=== PATIENT | male | born 1940 | race Caucasian/White ===

== ENCOUNTER → 2016-09-18 | Outpatient (CLI) | payer MEDICARE, OTHER ==
--- NOTE | 2016-09-18 18:13 | RADRPT ---
PROCEDURE: CT Chest. CLINICAL INDICATION: Dyspnea and shortness of breath. TECHNIQUE: CT scan of the chest without contrast was performed on the [employer] volumetric [address] [facility] without contrast. Coronal and sagittal reformatted images were obtained from the axial source images. The CTDI vol is 12.31 mGy and the DLP is 497.54 mGy-cm. COMPARISON: None. FINDINGS: A mild to moderate size right pleural effusion is seen with a small left pleural effusion. Scattere d ground-glass opacities are seen. The mediastinum and hilum are unremarkable without evidence for mass or lymphadenopathy. Aortic and coronary vascular calcifications are seen. The vascular structu res of the mediastinum are otherwise unremarkable in course and caliber. The heart size is mildly e nlarged and is without evidence for pericardial thickening or effusion. The axillary regions, subpe ctoral regions, and supraclavicular regions are all unremarkable. Bilateral -10 renal calculi are se en. In addition, a calculus in the left renal pelvis is seen measuring 9 mm in size. A right renal cyst is seen. Imaging obtained through the upper abdomen reveals no acute abnormality. Diffuse ost eopenia is seen. Degenerative spondylosis of the thoracic spine is seen. No osteolytic or osteoblas tic lesion is detected. The thyroid is enlarged and heterogeneous. IMPRESSION: 1. Mild to moderate size right pleural effusion with a small left pleural effusion. 2. Scattered ground-glass opacities which may be infectious or inflammatory in nature. 3. Bilateral nonobstructing renal calculi as well as a left renal pelvis calculus. RPTAT: HPNM Physician Gagandeep Date Time Electronically viewed and signed by Physician Gagandeep on 09/18/2016 18:13 /
== END | disposition home or self-care (01) ==
LOC: C/S 16:21
PROVIDERS: ATTEND Internal Medicine
DX: R06.00 Dyspnea, unspecified (principal); R06.02 Shortness of breath; J90 Pleural effusion, not elsewhere classified; N20.0 Calculus of kidney
CPT/HCPCS: 71250

== ENCOUNTER 2016-10-19 07:48 | Inpatient (IN) | payer MEDICARE, OTHER ==
[~2016-10-19] VITALS: Ht 165.1 cm; Wt 83.0 kg
[2016-10-19 08:33] LABS: ADD SCAN DIFF NO
[2016-10-19 08:45] LABS: BASOPHILS % 0.1 % (0.0-2.0); EOSINOPHILS # 0.1 10^3/ul (0.0-0.5); EOSINOPHILS % 0.7 % (0.0-7.0); HEMATOCRIT 25.5 % (42.0-52.0); HEMOGLOBIN 8.2 g/dl (14.0-18.0); LYMPHOCYTES # 0.9 10^3/ul (0.8-2.9); LYMPHOCYTES % 11.4 % (15.0-51.0); MEAN CORPUSCULAR HEMOGLOBIN 35.3 pg (29.0-33.0); MEAN CORPUSCULAR HGB CONC 32.2 g/dl (32.0-37.0); MEAN CORPUSCULAR VOLUME 109.9 fl (82.0-101.0); MEAN PLATELET VOLUME 10.5 fl (7.4-10.4); MONOCYTE # 0.9 10^3/ul (0.3-0.9); MONOCYTES % 11.5 % (0.0-11.0); NEUTROPHIL # 6.2 10^3/ul (1.6-7.5); NEUTROPHILS % 75.9 % (39.0-77.0); PLATELET COUNT 188 10^3/UL (140-415); RED BLOOD COUNT 2.32 10^6/ul (4.70-6.10); RED CELL DISTRIBUTION WIDTH 17.5 % (11.5-14.5); WHITE BLOOD COUNT 8.1 10^3/ul (4.8-10.8)
--- NOTE | 2016-10-19 08:46 | RADRPT ---
PROCEDURE: XR Chest. CLINICAL INDICATION: Shortness of breath. TECHNIQUE: Single frontal view. COMPARISON: None. FINDINGS: There is mild atelectasis at the lung bases. The heart size is normal. There is calcification in the aorta consistent with atherosclerosis. There is a small right pleural effusion. There is no left pleural effusion. There is no pneumothorax. IMPRESSION: 1. Mild atelectasis at the lung bases. 2. Atherosclerosis. 3. Small right pleural effusion. RPTAT: QQ .Moses Monk MD, MD Date Time Electronically viewed and signed by .Moses Monk MD, MD on 10/19/2016 08:46 .R/
[2016-10-19 08:53] LABS: INR 1.73; PROTIME 20.4 Sec (12.2-14.2); PT RATIO 1.6
[2016-10-19 08:56] LABS: ALANINE AMINOTRANSFERASE 51 IU/L (13-69); ALBUMIN 3.8 g/dl (3.3-4.9); ALKALINE PHOSPHATASE 141 IU/L (42-121); ANION GAP 21 (8-16); ASPARTATE AMINO TRANSFERASE 73 IU/L (15-46); BILIRUBIN,INDIRECT 0.5 mg/dl (0-1.1); BILIRUBIN,TOTAL 0.5 mg/dl (0.2-1.3); BLOOD UREA NITROGEN 57 mg/dl (7-20); CALCIUM 9.1 mg/dl (8.4-10.2); CARBON DIOXIDE 21 mmol/L (21-31); CHLORIDE 104 mmol/L (97-110); CREATININE 3.64 mg/dl (0.61-1.24); GLUCOSE 150 mg/dl (70-220); SODIUM 141 mmol/L (135-144); TOTAL PROTEIN 6.5 g/dl (6.1-8.1)
[2016-10-19 09:06] LABS: B-TYPE NATRIURETIC PEPTIDE 5800 PG/ML (0-125)
[2016-10-19 09:27] LABS: TROPONIN-I < 0.012 ng/ml (0.00-0.12)
[2016-10-19] MEDS ORDERED: PIPER-TAZO 3.375 GM IV (PMX) 100 ML IVPB STA (10:37)
[2016-10-19] MEDS ORDERED: VANCOMYCIN 1 GM (PMX) 250 ML IVPB STA (10:37)
--- NOTE | 2016-10-19 10:37 | RADRPT ---
PROCEDURE: CT scan of the abdomen and pelvis without IV contrast. CLINICAL INDICATION: 76-year-old male with bilateral history of renal stones. TECHNIQUE: Thin section axial, coronal and sagittal images were performed through the abdomen and pelvis without contrast. Radiation Dose: CTDI: 14 and DLP: 801 One or more of the following dose reduction techniques were used: - Automated exposure control. - Adjustment of the mA and/or kV according to patient size. Use of iterative reconstruction technique. COMPARISON: Chest x-ray 05/09/2016 06:18 a.m. FINDINGS: Soft tissues: There is anasarca. There is diastasis rectus. There are bilateral inguinal hernias wh ich contain fat but no intra-abdominal. Lungs and pleural spaces: There are bilateral pleural effusions. The right is larger than the left. There is peribronchial cuffing in the bronchial os leading to the right left lower lobes with bila teral ground-glass infiltrates suspicious for compressive atelectasis in the right left lower lobes. Heart: Heart is enlarged. There is a small pericardial effusion. There are vascular calcifications in the coronary arteries. The liver, common bile duct and gallbladder: The liver measured 12.6 cm AP. No hepatic mass or intr ahepatic biliary ductal dilatation is identified. A 6 mm hepatic mass is identified to small to quinn acterize. Ultrasound is recommended for evaluation. The gallbladder and gallbladder wall are colette l. Gastrointestinal: The stomach is incompletely distended and this is thought to account for gastric w all thickening. The small bowel loops have a normal caliber. There are diverticula in the sigmoid colon. There are diverticula in the splenic flexure. There are no signs of appendicitis. Pancreas: There is fatty replacement of the pancreas which is otherwise normal. Kidneys, bladder and adrenal glands : 85 0.5 mm nonobstructive nephrolith is noted in the upper midd le third of the right kidney. There is an area of increased attenuation parallel to the capsule of t he dorsal surface of the right kidney. Hounsfield view than spacer 65. The lower portion of the le eli as a rounded configuration whereas the more superior portions of a concave configuration. A 1.4 cm subcapsular cyst is noted off the lower pole of the left kidney. A 2.2 mm nephrolith and a djacent 5.3 mm nonobstructive nephrolith is identified in the lower pole calyces of the right kidney . There is a 10 mm nonobstructive nephrolith in the upper portion of the lower third of the left ki dney. There is a 1 mm nonobstructive nephrolith in the mid pole of the right kidney. There is a 1. 7 cm subcapsular lesion which may be the result of a complex cyst/mass or simple cyst in the midpole of the left kidney. There is a 1.2 cm lesion suspicious for a cyst in the upper lateral third of th e left kidney. The urinary bladder is unremarkable with no bladder stone identified. There are phleboliths in the lower pelvis. Spleen: Normal. There is a 1.5 cm accessory splenule. Lymph nodes: Normal. Reproductive system and pelvis : The prostate gland and seminal vesicles are normal. Bony elements: A Schmorl's node impinges on the inferior endplate of L4. There is disk space narrow ing associated with grade 1 anterolisthesis of L4-L5. There are bilateral fractures of the L4 pars interarticularis. There is disk space narrowing with grade 1 anterolisthesis of L2 relative to L1. There is disk space narrowing and vacuum disk phenomenon at L2-3 with a Schmorl's node impinging on the inferior endplate of L2. There is dorsal disk space narrowing at L3-4 with a small Schmorl's n ode impinging on the superior plate of L3. There are degenerative osteophytes in the lower thoracic spine. There are degenerative changes in the articular facets from L1-2 to L5-S1. There are multi ple old left-sided rib fractures. Vasculature: There are vascular calcifications in the thoracic and abdominal aorta, distal common il iac arteries, internal iliac arteries and common femoral arteries. IMPRESSION: 1. Acute subcapsular hematoma along the dorsal aspect of the right kidney. Ultrasound may be helpful in further characterization. 2. Nonobstructive nephrolith so in the right and left kidneys as described. 3. No evidence of hydronephrosis. 4. Small left kidney containing multiple cysts as described. Ultrasound is recommended for further characterization of these lesions as some are potentially complex. 4. Bilateral pleural effusions with compressive atelectasis in the bases of the lungs. 5. Cardiomegaly with a small pericardial effusion and vascular calcifications in the coronary arter ies. 6. Accessory splenule. 7. Anasarca. 8. Diastasis rectus. 9. Bilateral inguinal hernias containing fat. 10. Diverticulosis of the sigmoid colon without evidence of diverticulitis or appendicitis. 11. Extensive degenerative changes in the lumbar spine with grade 1 anterolisthesis of L4 and L5 as sociated with bilateral fractures of the L4 pars interarticularis. Other findings in the spine as d escribed. 12. Atherosclerotic vascular disease. 13. Findings were discussed with Dr. Monk. RPTAT:AAJJ Physician Rey Date Time Electronically viewed and signed by Daniel Wheatley Physician on 10/19/2016 10:36 /
--- NOTE | 2016-10-19 10:53 | ERA ---
ER Documentation Chief Complaint Date/Time DATE: 10/19/16 TIME: 10:48 Chief Complaint SENT IN BY PRIMARY MD FOR FURTHER LAB WORK AND ADMISSION HPI This is a 76-year-old male with a history of arthritis who presents to the emergency room after being sent in by his primary care physician, Dr. Francois, for evaluation of increased creatinine. According to this patient's primary care physician's patient normally has a creatinine of 1.8, he has been complaining of bilateral lower extremity swelling, and most recent blood work done at outside facility shows a creatinine of 3. This patient is denying any active shortness of breath at this time but does state that he is noticed bilateral lower extremity swelling. He states that he has ulcers on his legs from the swelling and he has been wrapping them with gauze. ROS All systems reviewed and are negative except as per history of present illness. Allergies Allergies: Coded Allergies: No Known Allergy (Unverified , 10/19/16) PMhx/Soc History of Surgery: No Anesthesia Reaction: No Hx Neurological Disorder: No Hx Cardiac Disorders: Yes (HTN AFIB) Hx Psychiatric Problems: No Hx Miscellaneous Medical Probl: Yes (DM, CHRONIC LEG WOUNDS, CIRCULATION ISSUES ) Hx Alcohol Use: No Hx Substance Use: No Hx Tobacco Use: No Smoking Status: Never smoker Physical Exam Vitals Vital Signs Date Time Temp Pulse Resp B/P Pulse Ox O2 Delivery O2 Flow Rate FiO2 10/19/16 09:30 98.3 74 20 101/62 98 Room Air 10/19/16 08:30 98.3 72 20 111/70 98 Room Air 10/19/16 07:55 99.4 86 18 126/58 100 Physical Exam INITIAL VITAL SIGNS: Reviewed by me GENERAL: The patient is a very pleasant elderly gentleman in no acute distress HEENT: Pupils equal, round, and reactive to light. EOMI. There is no scleral icterus. NECK: C-spine is soft and supple, there is no meningismus. There is no cervical lymphadenopathy. LUNGS: Coarse breath sounds bilaterally HEART: Regular rate and rhythm, no murmurs, clicks, rubs or gallops. ABDOMEN: Soft, non-tender, non-distended. There are bowel sounds in all four quadrants. No rebound or guarding. EXTREMITIES: 2+ pitting edema in the bilateral lower external. NEUROLOGICAL: The patient moves all four extremities with 5/5 strength. Cranial nerves II - XII are intact. Normal gait. Alert and oriented SKIN: Bilateral lower extremity weeping ulcers, HEME/LYMPHATIC: There is no evidence of excessive bruising or lymphedema. PSYCHIATRIC: The patient does not appear anxious or depressed. Result Diagram: 10/19/16 0820 10/19/16 0820 Results 24 hrs Laboratory Tests Test 10/19/16 08:20 White Blood Count 8.110^3/ul Red Blood Count 2.3210^6/ul Hemoglobin 8.2g/dl Hematocrit 25.5% Mean Corpuscular Volume 109.9fl Mean Corpuscular Hemoglobin 35.3pg Mean Corpuscular Hemoglobin Concent 32.2g/dl Red Cell Distribution Width 17.5% Platelet Count 39747^3/UL Mean Platelet Volume 10.5fl Neutrophils % 75.9% Lymphocytes % 11.4% Monocytes % 11.5% Eosinophils % 0.7% Basophils % 0.1% Nucleated Red Blood Cells % 0.0/100WBC Neutrophils # 6.210^3/ul Lymphocytes # 0.910^3/ul Monocytes # 0.910^3/ul Eosinophils # 0.110^3/ul Basophils # 0.010^3/ul Nucleated Red Blood Cells # 0.010^3/ul Prothrombin Time 20.4Sec Prothrombin Time Ratio 1.6 INR International Normalized Ratio 1.73 Activated Partial Thromboplast Time 46.0Sec Sodium Level 141mmol/L Potassium Level 5.0mmol/L Chloride Level 104mmol/L Carbon Dioxide Level 21mmol/L Anion Gap 21 Blood Urea Nitrogen 57mg/dl Creatinine 3.64mg/dl Glucose Level 150mg/dl Calcium Level 9.1mg/dl Total Bilirubin 0.5mg/dl Direct Bilirubin 0.00mg/dl Indirect Bilirubin 0.5mg/dl Aspartate Amino Transf (AST/SGOT) 73IU/L Alanine Aminotransferase (ALT/SGPT) 51IU/L Alkaline Phosphatase 141IU/L Troponin I < 0.012ng/ml B-Type Natriuretic Peptide 5800PG/ML Total Protein 6.5g/dl Albumin 3.8g/dl Globulin 2.70g/dl Albumin/Globulin Ratio 1.40 Lipase 142U/L Current Medications Medications (Trade) Dose Ordered Sig/Dano Route PRN Reason Start Time Stop Time Status Last Admin Dose Admin Vancomycin HCl 250 ml @ 125 mls/hr ONCE STAT IVPB 10/19/16 10:37 10/19/16 12:36 Piperacillin Sod/ Tazobactam Sod (Zosyn 3.375gm/ 100 ml (Pmx)) 100 ml @ 100 mls/hr ONCE STAT IVPB 10/19/16 10:37 10/19/16 11:36 Ondansetron HCl (Zofran Inj) 4 mg BRIDGE ORDER PRN IV NAUSEA AND/OR VOMITING 10/19/16 11:00 10/20/16 10:59 Acetaminophen (Tylenol Tab) 650 mg ER BRIDGE PRN PO MILD PAIN/FEVER 10/19/16 11:00 10/20/16 10:59 Procedures/MDM EKG: Rate/Rhythm: [Normal Sinus Rhythm] QRS, ST, T-waves: [No changes consistent w/ acute ischemia] Impression: [No evidence of ischemia or arrhythmia] Chest X-ray 1V Interpreted by me: Soft Tissue: No acute abnormalities Bones: No acute abnormalities Mediastinum/Cardiac Silhouette/Lungs: Pleural effusion CT abdomen pelvis without: 1. Acute subcapsular hematoma along the dorsal aspect of the right kidney. Ultrasound may be helpful in further characterization. 2. Nonobstructive nephrolith so in the right and left kidneys as described. 3. No evidence of hydronephrosis. 4. Small left kidney containing multiple cysts as described. Ultrasound is recommended for further characterization of these lesions as some are potentially complex. 4. Bilateral pleural effusions with compressive atelectasis in the bases of the lungs. 5. Cardiomegaly with a small pericardial effusion and vascular calcifications in the coronary arteries. 6. Accessory splenule. 7. Anasarca. 8. Diastasis rectus. 9. Bilateral inguinal hernias containing fat. 10. Diverticulosis of the sigmoid colon without evidence of diverticulitis or appendicitis. 11. Extensive degenerative changes in the lumbar spine with grade 1 anterolisthesis of L4 and L5 associated with bilateral fractures of the L4 pars interarticularis. Other findings in the spine as described. 12. Atherosclerotic vascular disease. This 76-year-old male presents to the emergency room for evaluation of bilateral lower extremity swelling. His primary care physician, Dr. Francois, stated that this patient has an increase in his creatinine. When I evaluated this patient I did note a weeping ulcers of the bilateral lower extremity with superficial superior pole cellulitis. The patient did have a creatinine greater than 3. CT of the abdomen and pelvis does show subcapsular hemorrhage of the kidney. The patient is hemodynamically stable at this time. Given his cellulitis he was started on vancomycin and Zosyn. The patient will be admitted at this time under the care of Dr. partida with nephrology consult. Patient is hemodynamically stable and not hypoxic. He will be placed on the [facility] floor at this time. Departure Diagnosis: Primary Impression: Acute renal failure Additional Impressions: Peripheral edema Renal hematoma Macrocytic anemia Bilateral lower leg cellulitis Condition: Fair YARIEL WALSH DO Oct 19, 2016 10:53
[2016-10-19] MEDS ORDERED: ONDANSETRON 4 MG INJ IV PRN (11:00)
[2016-10-19] MEDS ORDERED: DOCUSATE SODIUM 100 MG CAP PO PRN (11:00)
[2016-10-19] MEDS: FAMOTIDINE 20 MG TAB PO SCH (11:00)
[2016-10-19] MEDS ORDERED: NACL 0.9% 3 ML SYG IV SCH (11:00)
[2016-10-19] MEDS ORDERED: ACETAMINOPHEN 325 MG TAB PO PRN (11:00)
[2016-10-19 11:44] LABS: ADD UMIC YES; UR AMORPHOUS CRYSTAL FEW /HPF (NONE SEEN); UR ASCORBIC ACID NEGATIVE (NEGATIVE); UR BILIRUBIN (Dip) NEGATIVE (NEGATIVE); UR BLOOD (Dip) 2+ mg/dL (NEGATIVE); UR CLARITY CLOUDY (CLEAR); UR COLOR YELLOW (YELLOW); UR GLUCOSE (Dip) NEGATIVE (NEGATIVE); UR KETONES (Dip) NEGATIVE (NEGATIVE); UR LEUKOCYTE ESTERASE (Dip) NEGATIVE Leu/ul (NEGATIVE); UR NITRITE (Dip) NEGATIVE (NEGATIVE); UR RBC 25 /HPF (0-5); UR SPECIFIC GRAVITY (Dip) 1.013 (1.003-1.030); UR TOTAL PROTEIN (Dip) NEGATIVE (NEGATIVE); UR UROBILINOGEN (Dip) NEGATIVE (NEGATIVE)
--- NOTE | 2016-10-19 11:49 | RADRPT ---
PROCEDURE: Renal US. CLINICAL INDICATION: Subcapsular hematoma and renal cysts. TECHNIQUE: Multiple sonographic images of the kidneys were obtained. The images were reviewed on a PACS workstation. COMPARISON: 10/19/2016 CT abdomen. FINDINGS: The kidneys are well visualized. Hypoechoic subcapsular fluid collection along the peripheral aspect of the right kidney compatible with subcapsular hematoma measuring approximately 4 cm in greatest t hickness and 6 cm in craniocaudal extent. Multiple nonobstructing nephrolithiasis. Several sub-mirella timeter renal cortical renal cysts . The right kidney measures 11.1 x 5.9 x 4.1 cm in size. The lef t kidney measures 9.5 x 4.9 x 4.9 cm in size. Multiple nonobstructing punctate nephrolithiasis. 1. 6 cm left mid pole renal cortical cyst. There are no focal areas of abnormal echogenicity. There is no evidence for obstructive uropathy. Daniels catheter within decompressed bladder. IMPRESSION: Hypoechoic subcapsular right renal fluid collection peripherally compatible with subcapsular hematom a. This measures 4 cm in greatest thickness and 6 cm and craniocaudal extent. Multiple nonobstructing nephrolithiasis without hydronephrosis or obstructive uropathy. Bilateral renal cortical cysts. Daniels catheter within decompressed bladder. RPTAT:AAJJ Physician Eleuterio Date Time Electronically viewed and signed by Physician Eleuterio on 10/19/2016 11:48 KIP/
--- NOTE | 2016-10-19 14:06 | CONS ---
Date/Time of Note Date/Time of Note DATE: 10/19/16 TIME: 13:50 Assessment/Plan Assessment/Plan Additional Assessment/Plan 76 m with MMP as above,he presents with acute, non proteinuric, non oliguric renal failure on ckd . w/u revels hematuria and a moderate/ large rt subcapsular hematoma 4x6 cms noted on ct and ultrasound. other pertinent issues include acute anemia, borderline bp and use of arbs and the presence of cellulitis on exam. dd for his arf on ckd includes arf related to new subcapsular hematoma ( variant of Page kidney) causing sudden reduction in renal blood flow. this is likely given h/o of ECSWL 09/24 and a lab showing cr 4.5 10/08 which implies improving renal function with the resolution of his hematoma, vs atn related to hypotension, decreased renal blood flow dut to acute blood loss while on arb vs ICGN related to ongoing infection ( saad odonnell) recommendations: * dc arb ( arb) and metformin * gentle hydration * stat gu eval * repeat renal ultrasound and labs in am. if hematoma not improving and cr not better will need hematoma drainage * hold eliquis * check iron sats and ferritin and start ferrlicit if iron deficient * cont abx * renal dose all meds * add cpk, uric acid level and quantify proteinuria * c3/c4 for eval of icgn * add spep / upep to complate w/u Consultation Date/Type/Reason Admit Date/Time Reason for Consultation evaluation of arf Hx of Present Illness 76 m with h/o htn/ hyperlipidemia/niddm and ckd 3 with baseline cr 1.8 and chronic le edema due to "circulation problems " suspect chronic venous stasis who was sent to the er because of recent and sudden rise in cr to 3.6. the patient has had multiple renal stones and has been under the care of an outside urologist. he had an ECSWL in 08/2016 and again on 09/23/2016. he has a baseline cr of 1.8 due to chronic htn nephrosclerosis and has been stable on arb for years. cr done between both procedures was 1.8 . the patient had a lab drawn by his urologist on 10/08 and was noted to be markedly elevated at 4.5 / he was asked to come back for repeat yesterday and his cr was 3.3 and hence the patient was asked to come to the hospital for eval. he feels ok other than increasing lw swelling and redness and states he has been wrapping his lags for the last 2 weeks but has not had any abx. he denies any recent nsaid use but does not have his complete med list with him. he reports no chnage in uo or quality of his urine Past Medical History Medical History: angina, coronary artery disease, diabetes, high cholesterol, hypertension, hypothyroid, renal disease, other (renal stones, atrial fib) Family History Significant Family History: no pertinent family hx Social History Alcohol Use: none Smoking Status: Never smoker Exam/Review of Systems Vital Signs Vitals Vital Signs Date Time Temp Pulse Resp B/P Pulse Ox O2 Delivery O2 Flow Rate FiO2 10/19/16 09:30 98.3 74 20 101/62 98 Room Air Exam Constitutional: alert, oriented Head: atraumatic, normocephalic Eyes: nl conjunctiva Neck: jvd, non-tender, supple Respiratory: diminished breath sounds Cardiovascular: edema (bilateral le 1-2+ edema/ erethyma and weapping ulcers rt >lt), nl pulses, regular rate and rhythm Gastrointestinal: non-tender, soft Results Result Diagram: 10/19/16 0820 10/19/16 0820 Results 24 hrs Laboratory Tests Test 10/19/16 08:20 10/19/16 10:55 10/19/16 11:00 10/19/16 11:50 White Blood Count 8.1 Red Blood Count 2.32 L Hemoglobin 8.2 L Hematocrit 25.5 L Mean Corpuscular Volume 109.9 H Mean Corpuscular Hemoglobin 35.3 H Mean Corpuscular Hemoglobin Concent 32.2 Red Cell Distribution Width 17.5 H Platelet Count 188 Mean Platelet Volume 10.5 H Neutrophils % 75.9 Lymphocytes % 11.4 L Monocytes % 11.5 H Eosinophils % 0.7 Basophils % 0.1 Nucleated Red Blood Cells % 0.0 Neutrophils # 6.2 Lymphocytes # 0.9 Monocytes # 0.9 Eosinophils # 0.1 Basophils # 0.0 Nucleated Red Blood Cells # 0.0 Prothrombin Time 20.4 H Prothrombin Time Ratio 1.6 INR International Normalized Ratio 1.73 Activated Partial Thromboplast Time 46.0 H Sodium Level 141 Potassium Level 5.0 Chloride Level 104 Carbon Dioxide Level 21 Anion Gap 21 H Blood Urea Nitrogen 57 H Creatinine 3.64 H Glucose Level 150 Calcium Level 9.1 Ionized Calcium (Measured) 1.2 Total Bilirubin 0.5 Direct Bilirubin 0.00 Indirect Bilirubin 0.5 Aspartate Amino Transf (AST/SGOT) 73 H Alanine Aminotransferase (ALT/SGPT) 51 Alkaline Phosphatase 141 H Troponin I < 0.012 B-Type Natriuretic Peptide 5800 H Total Protein 6.5 Albumin 3.8 Globulin 2.70 Albumin/Globulin Ratio 1.40 Lipase 142 Urine Color YELLOW Urine Clarity CLOUDY A Urine pH 5.0 Urine Specific [place] 1.013 Urine Ketones NEGATIVE Urine Nitrite NEGATIVE Urine Bilirubin NEGATIVE Urine Urobilinogen NEGATIVE Urine Leukocyte Esterase NEGATIVE Urine Microscopic RBC 25 H Urine Microscopic WBC 2 Urine Amorphous Crystals FEW A Urine Hemoglobin 2+ H Urine Random Creatinine 70.54 Urine Random Sodium 76 Urine Glucose NEGATIVE Urine Total Protein NEGATIVE Lactic Acid Level 1.5 Erythrocyte Sedimentation Rate 63 H Test 10/19/16 13:00 Lactic Acid Level 0.8 Medications Medications Current Medications Docusate Sodium (Colace) 100 mg Q12H PRN PO CONSTIPATION; Start 10/19/16 at 11: 00 Zolpidem Tartrate (Ambien) 5 mg QHS PRN PO SLEEP; Start 10/19/16 at 11:00 Famotidine (Pepcid) 20 mg DAILY PO Last administered on 10/19/16t 11:00; Admin Dose 20 MG; Start 10/19/16 at 11:00 Heparin Sodium (Porcine) (Heparin (5000 Units/0.5 ml)) 5,000 unit Q8 SC ; Start 10/19/16 at 14:00 home meds: valsartan 160 bid janumet allopurinol levothyroxine DANIEL OLSEN MD Oct 19, 2016 14:05
[2016-10-19] MEDS: SOD CHLORIDE 0.45% 1,000 ML IV SCH ×2 (14:22→20:09)
[2016-10-19] MEDS: HEPARIN 5,000 UNIT/0.5 ML VIAL SC SCH ×2 (14:29→22:05)
[2016-10-19 14:30] VITALS: TEMP 98.3
--- NOTE | 2016-10-19 14:31 | HP ---
Date/Time of Note Date/Time of Note DATE: 10/19/16 TIME: 13:49 Assessment/Plan VTE Prophylaxis VTE Prophylaxis Intervention: contraindicated Lines/Catheters Urinary Cath still in place: Yes Reason Cath still needed: other (indicate) (Acute kidney injury) Assessment/Plan Problems: (1) Diabetes mellitus type 2, noninsulin dependent Status: Chronic Comment: He has generally enjoyed very good control on simple regimen using sensitizing agents. Will need to adjust that while he is in the hospital to maintain control. (2) Chronic atrial fibrillation Status: Chronic Comment: For now he will be off of the anticoagulant therapy (3) Coronary artery disease Status: Chronic Comment: This issue has been fortunately quiescent for some time Qualifiers: Coronary Disease-Associated Artery/Lesion type: [place] artery [place] vs. transplanted heart: [place] heart Associated angina: without angina Qualified Code: I25.10 - Coronary artery disease involving [place] coronary artery of [place] heart without angina pectoris (4) Essential hypertension Status: Chronic Comment: For now we will have to hold his A2 receptor raj drug therapy (5) Hyperlipidemia Status: Chronic Comment: Continue with the statin therapy which is tolerated Qualifiers: Hyperlipidemia type: pure hypercholesterolemia Qualified Code: E78.00 - Pure hypercholesterolemia (6) Hyperuricemia Status: Chronic Comment: Continue with allopurinol at original dosing (7) Renal stones Status: Chronic Comment: I do not believe he has obstruction however urology will be consulted for this as well as the renal subcapsular hematoma (8) Chronic kidney disease, stage II (mild) Status: Chronic Comment: This is noted for historical information for the staff involved in his care (9) Acute kidney injury Status: Acute Comment: Full date is in the history of present illness (10) History of Graves' disease Status: Chronic Comment: Status post I-131 ablation with hypothyroidism and without advancement of orbitopathy (11) Hypothyroidism (acquired) Status: Chronic Comment: Continue standard replacement therapy (12) Venous insufficiency of left lower extremity Status: Chronic Comment: Cultures been done as it looks like he may have developed some infection secondarily. (13) Venous insufficiency of right leg Status: Chronic Comment: Cultures have been done as it looks like he may have secondary infection he will be on antibiotics (14) Renal hematoma Status: Acute Comment: Urology will see the patient in consultation. We may need interventional radiology in combination with urology to perform some type of relief procedure Qualifiers: Encounter type: initial encounter Laterality: unspecified laterality Qualified Code: S37.019A - Renal hematoma, unspecified laterality, initial encounter HPI/ROS Admit Date/Time Admit Date/Time October 19, 2016 Hx of Present Illness Nael 76-year-old right-handed single male with several medical problems. He is being brought in due to the onset of subacute renal insufficiency. Historically his serum creatinine has ranged between 1.3 and 1.7 dating back to 2011 and farther. He has several active medical problems including but not limited to coronary artery disease-chronic atrial fibrillation -; hypothyroidism after I-131 treatment of Graves' disease; diabetes mellitus type 2; hyperlipidemia; the above-mentioned chronic kidney disease stage II varicose veins; chronic venous insufficiency; hyperuricemia; recurrent renal stones with a negative parathyroid workup. He has been on chronic anticoagulant therapy using Eliquis 5 mg twice daily peer he had undergone on August 13, 2016 ESWL cystoscopy for a left renal stone and then subsequently had ESWL on the right on September 24, 2016. Please note there was a CT scan of the chest which included part of the kidneys performed September 18, 2016 and his BUN and creatinine at that time were 24 and 1.7 respectively. He was seen in consultation by Dr. Abraham and on October 08, 2016 had labs demonstrated a serum creatinine of 4.59 with a BUN of 59 and a hemoglobin of 8.5 which was a new drop. He was noting some increasing lower extremity edema. He had also had aggravation of his chronic lower extremity venous stasis changes and was being referred for wound care evaluation. He has not been on any antibiotics including not on any sulfa medicines the best of her knowledge she has not been exposed to any IV contrast. His renal function was rechecked to make sure this was not laboratory air and serum creatinine had decreased to 3.3 however due to this and due to the symptoms of his legs he was brought in for admission and evaluation. Please see the results of imaging studies. Please note he was seen in the emergency room [facility] for epistaxis on October 09, 2016 where he did have labs done but they did not comment on the renal function ROS Constitutional: no complaints (Denies fever chills or sweats) Eyes: no complaints ENT: no complaints Respiratory: no complaints (He has had a chronic cough which actually led to his transitioning his PARADISE inhibitor over to valsartan 10 without effect. Please see the results of the CT scan. Please note he had a negative QuantiFERON gold) Cardiovascular: no complaints (No chest pain no PND nor orthopnea no palpitations) Gastrointestinal: no complaints (Denies nausea vomiting or abdominal pain) Genitourinary: no complaints (Specifically denies hematuria) Musculoskeletal: back pain (Some back pain) Skin: other (Bilateral lower extremity issues with left lower extremity edema and redness) Neurologic: no complaints Endocrine: no complaints Lymphatic: no complaints Psychological: no complaints Immunologic: no complaints PMH/Family/Social Past Medical History Medications; 1)[id number] day; 2) levothyroxine 112 mcg/d; 3)janumet 50- 1000 bid' 4) eliquis 5 bid, 5) atorvastatin 80mg/d 6) asa 325/d 7) metoprolol S. 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; 2) bilateral renal stones; 3) chronic kidney disease stage II with serum creatinine ranging between 1.3 and 1.7; 4) chronic venous stasis changes of both lower extremities; 5) Graves' disease status post I-131 ablation with hypothyroidism; 6) hyperlipidemia 7) hyperuricemia with gout; 8) basal cell carcinoma squamous cell carcinoma skin resected; 9) colonic polyposis; 10) allergic rhinitis; 11) history of varicose veins Chronic anticoagulation Medical History: coronary artery disease, diabetes, high cholesterol, hypertension Past Surgical History Status post right inguinal hernia repair September 13, 2014; status post appendectomy ; status post tonsillectomy; status post removal of skin cancer; status post ESWL Family History Significant Family History: heart disease, diabetes, hypertension, other ( Positive for stroke positive for glaucoma negative for migraine negative for colon cancer negative prostate cancer negative for bleeding diathesis) Social History Born in [place] and raised to high a bachelor's degree without experience 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 Tetanus and pneumococcal vaccines administered February 14, 2007 Colonoscopy June 30, 2011 with one tubular adenoma Alcohol Use: none Smoking Status: Never smoker Drug Use: none Exam/Review of Systems Vital Signs Vitals Vital Signs Date Time Temp Pulse Resp B/P Pulse Ox O2 Delivery O2 Flow Rate FiO2 10/19/16 13:30 98.3 76 20 97/58 98 Room Air Exam Exam Pleasant male in no tracy distress with his usual reserved affect Constitutional: alert, oriented Psych: no complaints Head: atraumatic, normocephalic Eyes: EOMI, nl conjunctiva, nl lids, nl sclera ENMT: mucosa pink and moist, nl external ears & nose, nl lips & teeth, nl nasal mucosa & septum Neck: non-tender, supple Respiratory: crackles/rales (Basilar crackles), normal air movement Cardiovascular: irregular rhythm, nl pulses, other (No S3 or S4) Gastrointestinal: nl liver, spleen, non-tender, soft Genitourinary - Male: nl penis, nl scrotum Musculoskeletal: other (Lower extremity venous stasis changes with what may be a cellulitis of the right lower) Neurological: SINTER FEEDER II-XII intact, nl mental status, nl speech, nl strength Labs Result Diagram: 10/19/16 0820 10/19/16 0820 Medications Medications Current Medications Docusate Sodium (Colace) 100 mg Q12H PRN PO CONSTIPATION; Start 10/19/16 at 11: 00 Zolpidem Tartrate (Ambien) 5 mg QHS PRN PO SLEEP; Start 10/19/16 at 11:00 Famotidine (Pepcid) 20 mg DAILY PO Last administered on 10/19/16t 11:00; Admin Dose 20 MG; Start 10/19/16 at 11:00 Heparin Sodium (Porcine) (Heparin (5000 Units/0.5 ml)) 5,000 unit Q8 SC ; Start 10/19/16 at 14:00 KASSIDY DIAMOND MD Oct 19, 2016 13:58
[2016-10-19] MEDS ORDERED: GLUCOSE GEL 15 GRAM TUBE PO PRN ×2 (15:00)
[2016-10-19] MEDS ORDERED: GLUCOSE GEL 15 GRAM TUBE BUCCAL PRN (15:00)
[2016-10-19] MEDS ORDERED: DEXTROSE 50% 50 ML SYRINGE IV PRN ×2 (15:00)
[2016-10-19] MEDS ORDERED: GLUCAGON 1 MG INJ IM PRN (15:00)
[2016-10-19 15:10] VITALS: Ht 165.1 cm; Wt 83.0 kg
[2016-10-19 16:03] VITALS: BP 117/76; RESP 18
--- NOTE | 2016-10-19 16:38 | CONS ---
Date/Time of Note Date/Time of Note DATE: 10/19/16 TIME: 16:09 Assessment/Plan Assessment/Plan Chief Complaint/Hosp Course Right renal subcapsular hematoma status post right extracorporeal shockwave lithotripsy on September 24, 2016. Serum creatinine did go up to 4.59 and then has come down to 3.3 the patient usual creatinine runs around 1.5-1.7 His left kidney is smaller than the right kidney, the right renal subcapsular hematoma will gradually subside and renal function will gradually continue to improve. At the present time there is no need for any surgical intervention. Problems: Additional Assessment/Plan Observation, hydration , monitor his H&H, cover him was antibiotic to prevent any infection of the hematoma and manage all his medical problems as has been done Consultation Date/Type/Reason Admit Date/Time October 19, 2016 Date of Consultation: Oct 19, 2016 Type of Consultation: urology Reason for Consultation Right renal subcapsular hematoma, patient underwent left extracorporeal shockwave lithotripsy on August 13, 2016, and right extracorporeal shockwave lithotripsy on September 18, 2016. Referring Provider: KASSIDY DIAMOND MD Hx of Present Illness This is a 76-year-old male who underwent extracorporeal shockwave lithotripsy on the left kidney on August 13, 2016 and on September 18, 2016 he underwent extracorporeal shockwave lithotripsy to the right kidney. Patient is known to have been on anticoagulation but that was stopped prior to the lithotripsy and did not start until about 3 days after the lithotripsy according to the patient. the patient was noted to have elevated creatinine and he was sent to the emergency room at [facility] ,had a CT scan of the abdomen and pelvis and that showed right renal subcapsular hematoma. There was no ureteral stones or hydronephrosis or obstruction. Constitutional: no complaints Eyes: no complaints ENT: no complaints, other (Patient had epistaxis on October 09 and was at [facility] for that) Respiratory: no complaints (Patient has a chronic cough) Cardiovascular: no complaints (No chest pain no PND nor orthopnea no palpitations) Gastrointestinal: no complaints (Denies nausea vomiting or abdominal pain), No diarrhea, No nausea, No pain, No vomiting Genitourinary: no complaints, other (He has a Daniels catheter that is draining clear urine), No hematuria Musculoskeletal: back pain (Some back pain) Skin: bruising, other (Bilateral lower extremity cellulitis and poor circulation with left lower extremity edema and redness) Neurologic: no complaints Endocrine: other (History of Graves' disease he had iodine ablation resulting in hypothyroidism and he is on hypo-thyroidism medication replacement, he also have type 2 diabetes) Lymphatic: no complaints Psychological: no complaints Immunologic: no complaints Past Medical History Medical History: angina, coronary artery disease, diabetes, high cholesterol, hypertension, hypothyroid, renal disease, other (renal stones, atrial fib 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) Past Surgical History Past Surgical Hx: appendectomy, other (Bilateral inguinal hernia repair, bilateral extracorporeal shockwave lithotripsy, tonsillectomy, skin cancer removal) Family History Significant Family History: heart disease, diabetes, hypertension Social History Alcohol Use: none Smoking Status: Never smoker Drug Use: none Exam/Review of Systems Vital Signs Vitals Vital Signs Date Time Temp Pulse Resp B/P Pulse Ox O2 Delivery O2 Flow Rate FiO2 10/19/16 16:03 97.3 67 18 117/76 94 10/19/16 14:30 Room Air Exam Constitutional: alert, oriented Psych: no complaints Head: normocephalic Eyes: nl conjunctiva ENMT: nl external ears & nose Neck: supple Respiratory: normal air movement Cardiovascular: No edema Gastrointestinal: soft, No mass Genitourinary - Male: nl penis Musculoskeletal: other (He has penile edema, mild scrotal edema, testes are small) Extremities: other (Bilateral lower extremity cellulitis) Skin: ecchymosis Results Result Diagram: 10/19/16 0820 10/19/16 0820 Results 24 hrs Laboratory Tests Test 10/19/16 08:20 10/19/16 10:55 10/19/16 11:00 10/19/16 11:50 White Blood Count 8.1 Red Blood Count 2.32 L Hemoglobin 8.2 L Hematocrit 25.5 L Mean Corpuscular Volume 109.9 H Mean Corpuscular Hemoglobin 35.3 H Mean Corpuscular Hemoglobin Concent 32.2 Red Cell Distribution Width 17.5 H Platelet Count 188 Mean Platelet Volume 10.5 H Neutrophils % 75.9 Lymphocytes % 11.4 L Monocytes % 11.5 H Eosinophils % 0.7 Basophils % 0.1 Nucleated Red Blood Cells % 0.0 Neutrophils # 6.2 Lymphocytes # 0.9 Monocytes # 0.9 Eosinophils # 0.1 Basophils # 0.0 Nucleated Red Blood Cells # 0.0 Prothrombin Time 20.4 H Prothrombin Time Ratio 1.6 INR International Normalized Ratio 1.73 Activated Partial Thromboplast Time 46.0 H Sodium Level 141 Potassium Level 5.0 Chloride Level 104 Carbon Dioxide Level 21 Anion Gap 21 H Blood Urea Nitrogen 57 H Creatinine 3.64 H Glucose Level 150 Calcium Level 9.1 Ionized Calcium (Measured) 1.2 Total Bilirubin 0.5 Direct Bilirubin 0.00 Indirect Bilirubin 0.5 Aspartate Amino Transf (AST/SGOT) 73 H Alanine Aminotransferase (ALT/SGPT) 51 Alkaline Phosphatase 141 H Troponin I < 0.012 B-Type Natriuretic Peptide 5800 H Total Protein 6.5 Albumin 3.8 Globulin 2.70 Albumin/Globulin Ratio 1.40 Lipase 142 Urine Color YELLOW Urine Clarity CLOUDY A Urine pH 5.0 Urine Specific [place] 1.013 Urine Ketones NEGATIVE Urine Nitrite NEGATIVE Urine Bilirubin NEGATIVE Urine Urobilinogen NEGATIVE Urine Leukocyte Esterase NEGATIVE Urine Microscopic RBC 25 H Urine Microscopic WBC 2 Urine Amorphous Crystals FEW A Urine Eosinophils % 0.0 Urine Hemoglobin 2+ H Urine Random Creatinine 70.54 Urine Random Sodium 76 Urine Glucose NEGATIVE Urine Total Protein NEGATIVE Lactic Acid Level 1.5 Erythrocyte Sedimentation Rate 63 H Test 10/19/16 13:00 Lactic Acid Level 0.8 Renal ultrasound: IMPRESSION: Hypoechoic subcapsular right renal fluid collection peripherally compatible with subcapsular hematoma. This measures 4 cm in greatest thickness and 6 cm and craniocaudal extent. Multiple nonobstructing nephrolithiasis without hydronephrosis or obstructive uropathy. Bilateral renal cortical cysts. Daniels catheter within decompressed bladder. RPTAT:AAJJ CT scan of abdomen and pelvis: IMPRESSION: 1. Acute subcapsular hematoma along the dorsal aspect of the right kidney. Ultrasound may be helpful in further characterization. 2. Nonobstructive nephrolith so in the right and left kidneys as described. 3. No evidence of hydronephrosis. 4. Small left kidney containing multiple cysts as described. Ultrasound is recommended for further characterization of these lesions as some are potentially complex. 4. Bilateral pleural effusions with compressive atelectasis in the bases of the lungs. 5. Cardiomegaly with a small pericardial effusion and vascular calcifications in the coronary arteries. 6. Accessory splenule. 7. Anasarca. 8. Diastasis rectus. 9. Bilateral inguinal hernias containing fat. 10. Diverticulosis of the sigmoid colon without evidence of diverticulitis or appendicitis. 11. Extensive degenerative changes in the lumbar spine with grade 1 anterolisthesis of L4 and L5 associated with bilateral fractures of the L4 pars interarticularis. Other findings in the spine as described. 12. Atherosclerotic vascular disease. 13. Findings were discussed with Dr. Monk. RPTAT:AAJJ Daniel Wheatley Physician Date Time Medications Medications Current Medications Docusate Sodium (Colace) 100 mg Q12H PRN PO CONSTIPATION; Start 10/19/16 at 11: 00 Zolpidem Tartrate (Ambien) 5 mg QHS PRN PO SLEEP; Start 10/19/16 at 11:00 Famotidine (Pepcid) 20 mg DAILY PO Last administered on 10/19/16 11:00; Admin Dose 20 MG; Start 10/19/16 at 11:00 Heparin Sodium (Porcine) 5000 unit 5,000 unit Q8 SC Last administered on 14:29; Admin Dose 5,000 UNIT; Start 10/19/16 at 14:00 Sodium Chloride (1/2 NS) 1,000 ml @ 50 mls/hr Q20H IV Last administered on 14:22; Admin Dose 50 MLS/HR; Start 10/19/16 at 14:00 Levothyroxine Sodium (Synthroid) 112 mcg DAILY@06 PO ; Start 10/20/16 at 06:00 Metoprolol Succinate (Toprol Xl) 100 mg QHS PO ; Start 10/19/16 at 21:00 Allopurinol (Zyloprim) 100 mg QAM PO ; Start 10/20/16 at 09:00 Atorvastatin Calcium (Lipitor) 80 mg QHS PO ; Start 10/19/16 at 21:00 Linagliptin (Tradjenta) 5 mg DAILY PO ; Start 10/20/16 at 09:00 Insulin Glargine (Lantus) 6 unit DAILY@20 SC ; Start 10/19/16 at 20:00 Diagnostic Test (Pha) (Accu-Chek) 1 ea 02 XX ; Start 10/20/16 at 02:00 Miscellaneous Information 1 ea NOTE XX ; Start 10/19/16 at 15:00 Glucose (Glutose) 15 gm Q15M PRN PO DECREASED GLUCOSE; Start 10/19/16 at 15:00 Glucose (Glutose) 22.5 gm Q15M PRN PO DECREASED GLUCOSE; Start 10/19/16 at 15: 00 Dextrose (D50w Syringe) 25 ml Q15M PRN IV DECREASED GLUCOSE; Start 10/19/16 at 15:00 Dextrose (D50w Syringe) 50 ml Q15M PRN IV DECREASED GLUCOSE; Start 10/19/16 at 15:00 Glucagon (Glucagen) 1 mg Q15M PRN IM DECREASED GLUCOSE; Start 10/19/16 at 15:00 Glucose (Glutose) 15 gm Q15M PRN BUCCAL DECREASED GLUCOSE; Start 10/19/16 at 15 :00 TINO ALLISON MD Oct 19, 2016 16:19
[2016-10-19] MEDS: INSULIN ASPART [NOVOLOG] 3 ML PEN SC SCH ×3 (17:19→20:55)
[2016-10-19 17:59] LABS: CREATINE KINASE 148 IU/L (23-200); URIC ACID 9.5 mg/dl (3.1-7.9)
[2016-10-19] MEDS: CEFAZOLIN 1 GM/50 ML (PMX) 50 ML IVPB SCH (18:06)
[2016-10-19] MEDS: HYDROCODONE/APAP (5/325) TAB PO PRN (18:13)
[2016-10-19 18:14] LABS: CK-MB < 0.22 ng/ml (0.0-2.4); TROPONIN-I < 0.012 ng/ml (0.00-0.12)
[2016-10-19 18:30] LABS: COMPLEMENT C3 100 mg/dl (88-165); COMPLEMENT C4 32 mg/dl (14-44)
[2016-10-19] MEDS: INSULIN GLARGINE [LANtus] 3 ML PEN SC SCH (20:07)
[2016-10-19] MEDS: ACCU-CHEK XX SCH (20:12)
[2016-10-19 20:47] VITALS: BP 111/66; RESP 21
[2016-10-19] MEDS: ATORVASTATIN 80 MG TAB PO SCH (20:55)
[2016-10-19] MEDS: METOPROLOL (XL) 100 MG TAB PO SCH (20:56)
[2016-10-19 22:00] VITALS: BP 117/63; PULSE 77
[2016-10-20] MEDS: ACCU-CHEK XX SCH ×4 (02:24→20:05)
[2016-10-20 02:56] VITALS: BP 111/55; RESP 18
[2016-10-20] MEDS: CEFAZOLIN 1 GM/50 ML (PMX) 50 ML IVPB SCH ×2 (04:40→17:30)
[2016-10-20] MEDS: LEVOTHYROXINE 112 MCG TAB PO SCH (05:08)
[2016-10-20] MEDS: HEPARIN 5,000 UNIT/0.5 ML VIAL SC SCH ×3 (05:10→21:48)
[2016-10-20 05:13] LABS: ADD SCAN DIFF NO
[2016-10-20 05:16] LABS: BASOPHILS % 0.1 % (0.0-2.0); EOSINOPHILS # 0.2 10^3/ul (0.0-0.5); EOSINOPHILS % 2.2 % (0.0-7.0); HEMOGLOBIN 7.1 g/dl (14.0-18.0); LYMPHOCYTES # 1.4 10^3/ul (0.8-2.9); LYMPHOCYTES % 21.6 % (15.0-51.0); MEAN CORPUSCULAR HGB CONC 30.9 g/dl (32.0-37.0); MONOCYTE # 0.9 10^3/ul (0.3-0.9); MONOCYTES % 13.2 % (0.0-11.0); NEUTROPHIL # 4.2 10^3/ul (1.6-7.5); NEUTROPHILS % 62.6 % (39.0-77.0); PLATELET COUNT 145 10^3/UL (140-415); RED BLOOD COUNT 2.09 10^6/ul (4.70-6.10); RED CELL DISTRIBUTION WIDTH 17.6 % (11.5-14.5); WHITE BLOOD COUNT 6.7 10^3/ul (4.8-10.8)
[2016-10-20 05:54] LABS: ALBUMIN 3.1 g/dl (3.3-4.9); ALBUMIN/GLOBULIN RATIO 1.29; BILIRUBIN,INDIRECT 0.5 mg/dl (0-1.1); BILIRUBIN,TOTAL 0.5 mg/dl (0.2-1.3); CALCIUM 8.4 mg/dl (8.4-10.2); CREATININE 3.57 mg/dl (0.61-1.24); PHOSPHORUS 3.8 mg/dl (2.5-4.9); POTASSIUM 4.5 mmol/L (3.5-5.1); TOTAL PROTEIN 5.5 g/dl (6.1-8.1)
[2016-10-20 06:38] LABS: THYROID STIMULATING HORMONE 3.69 MIU/L (0.465-4.680)
[2016-10-20] MEDS: INSULIN ASPART [NOVOLOG] 3 ML PEN SC SCH ×7 (07:51→21:00)
[2016-10-20] MEDS: HYDROCODONE/APAP (5/325) TAB PO PRN ×2 (08:18→21:45)
[2016-10-20 08:22] VITALS: BP 117/67; RESP 16
[2016-10-20 08:38] LABS: IRON 33 ug/dl (35-150)
[2016-10-20] MEDS: FAMOTIDINE 20 MG TAB PO SCH (08:44)
[2016-10-20] MEDS: ALLOPURINOL 100 MG TAB PO SCH (08:45)
[2016-10-20] MEDS: LINAGLIPTIN 5 MG TABLET PO SCH (08:45)
--- NOTE | 2016-10-20 08:47 | RADRPT ---
PROCEDURE: CT Abdomen and Pelvis without contrast. CLINICAL INDICATION: Subcapsular hematoma. TECHNIQUE: Routine abdominopelvic CT was performed without intravenous contrast and reformatted in the axial, coronal, sagittal planes. Radiation dose: CTDIvol (mGy) = 18.0; total DLP mGy-cm = 537. One or more of the following radiation dose techniques were used: -Automated exposure control. -Adjust of the mA and/or kV according to patient size. -Use of iterative reconstruction technique. COMPARISON: 10/19/2016. FINDINGS: Stable size and appearance of right-sided subdural hematoma measuring 4.6 x 6.9 cm. Unchanged bilat eral nephrolithiasis. Limited unenhanced images of the liver, gallbladder, biliary system, pancreas, and spleen demonstrat es no gross abnormality. Unchanged small to moderate right greater left pleural effusions. There is increased diffuse anasar ca. IMPRESSION: Stable right subcapsular hematoma. Unchanged small to moderate right greater than left pleural effusions. Mild increase in overlying d iffuse anasarca. RPTAT: EE .Alberto Delarosa MD, MD Date Time Electronically viewed and signed by .Alberto Delarosa MD, on 10/20/2016 08:52 .C/
[2016-10-20 08:48] LABS: TOTAL IRON BINDING CAPACITY 241 ug/dl (241-421)
--- NOTE | 2016-10-20 13:21 | PN ---
Date/Time of Note Date/Time of Note DATE: 10/20/16 TIME: 13:17 Assessment/Plan VTE Prophylaxis VTE Prophylaxis Intervention: contraindicated Lines/Catheters [facility] Type (from [facility]): Peripheral IV Urinary Cath still in place: Yes Reason Cath still needed: urinary retention Assessment/Plan Problems: (1) Macrocytic anemia Status: Acute Comment: Will treat with B12 folate iron and Procrit. Would like to avoid transfusion if at all possible (2) Renal hematoma Status: Acute Comment: CT scan demonstrates stability of this. Please see urology consult and nephrology consult continue observation Qualifiers: Encounter type: initial encounter Laterality: unspecified laterality Qualified Code: S37.019A - Renal hematoma, unspecified laterality, initial encounter (3) Bilateral lower leg cellulitis Status: Acute Comment: This continues to be an issue and one worries at the could be immune mediated nephritis on the basis of infection. He is on antibiotics. Wound care team will be seeing him. (4) Coronary artery disease Status: Chronic Comment: Quiescent and in active Qualifiers: Coronary Disease-Associated Artery/Lesion type: [place] artery [place] vs. transplanted heart: [place] heart Associated angina: without angina Qualified Code: I25.10 - Coronary artery disease involving [place] coronary artery of [place] heart without angina pectoris (5) Essential hypertension Status: Chronic Comment: Adequate control. Please note the A2 receptor raj is being held (6) Hyperlipidemia Status: Chronic Comment: Remains on full dose statin therapy Qualifiers: Hyperlipidemia type: pure hypercholesterolemia Qualified Code: E78.00 - Pure hypercholesterolemia (7) Hyperuricemia Status: Chronic Comment: On treatment and stable (8) Hypothyroidism (acquired) Status: Chronic Comment: Adequately replaced continues replacement therapy (9) Acute kidney injury Status: Acute Comment: Renal function is stable but improved versus 8 days ago. Continue evaluation guided by urology and nephrology (10) Venous insufficiency of right leg Status: Chronic Comment: Await wound care consult (11) Venous insufficiency of left lower extremity Status: Chronic Comment: Await wound care consult Subjective 24 Hr Interval Summary Free Text/Dictation Nael gentleman sitting in bed reports he is feeling better. Constitutional: no complaints (Denies fevers chills or sweats) Respiratory: no complaints (Denies shortness of breath cough wheezing) Cardiovascular: no complaints Gastrointestinal: no complaints Genitourinary: no complaints Skin: other (Reports still significant weeping from the right lower extremity) Exam/Review of Systems Vital Signs Vitals Vital Signs Date Time Temp Pulse Resp B/P Pulse Ox O2 Delivery O2 Flow Rate FiO2 10/20/16 08:22 97.9 62 16 117/67 94 10/19/16 14:30 Room Air Intake and Output 10/19/16 10/19/16 10/20/16 15:00 23:00 07:00 Intake Total 290 ml 1010 ml Output Total 425 ml 460 ml Balance -135 ml 550 ml Exam Constitutional: alert, oriented Neck: non-tender, supple Respiratory: clear to auscultation, normal air movement Cardiovascular: nl pulses, regular rate and rhythm Results Result Diagram: 10/20/16 0443 10/20/16 0443 Results 24 hrs Laboratory Tests Test 10/19/16 16:44 10/19/16 17:19 10/19/16 20:05 10/19/16 20:53 Uric Acid 9.5 H Creatine Kinase 148 Creatine Kinase Index 0.1 Creatinine Kinase MB (Mass) < 0.22 Troponin I < 0.012 Complement C3 100 Complement C4 32 Bedside Glucose 115 183 189 Test 10/20/16 02:09 10/20/16 04:43 10/20/16 07:50 10/20/16 10:03 Bedside Glucose 119 88 154 White Blood Count 6.7 Red Blood Count 2.09 L Hemoglobin 7.1 L Hematocrit 23.0 L Mean Corpuscular Volume 110.0 H Mean Corpuscular Hemoglobin 34.0 H Mean Corpuscular Hemoglobin Concent 30.9 L Red Cell Distribution Width 17.6 H Platelet Count 145 # Mean Platelet Volume 10.0 Neutrophils % 62.6 Lymphocytes % 21.6 Monocytes % 13.2 H Eosinophils % 2.2 Basophils % 0.1 Nucleated Red Blood Cells % 0.0 Neutrophils # 4.2 Lymphocytes # 1.4 Monocytes # 0.9 Eosinophils # 0.2 Basophils # 0.0 Nucleated Red Blood Cells # 0.0 Sodium Level 141 Potassium Level 4.5 Chloride Level 107 Carbon Dioxide Level 23 Anion Gap 16 Blood Urea Nitrogen 53 H Creatinine 3.57 H Glucose Level 93 # Calcium Level 8.4 Phosphorus Level 3.8 Magnesium Level 2.0 Iron Level 33 L Total Iron Binding Capacity 241 Percent Iron Saturation 14 L Ferritin 71.2 Total Bilirubin 0.5 Direct Bilirubin 0.00 Indirect Bilirubin 0.5 Aspartate Amino Transf (AST/SGOT) 50 H Alanine Aminotransferase (ALT/SGPT) 44 Alkaline Phosphatase 97 Total Protein 5.5 #L Albumin 3.1 L Globulin 2.40 Albumin/Globulin Ratio 1.29 Thyroid Stimulating Hormone (TSH) 3.690 Test 10/20/16 12:08 Bedside Glucose 140 Medications Medications Current Medications Docusate Sodium (Colace) 100 mg Q12H PRN PO CONSTIPATION; Start 10/19/16 at 11: 00 Zolpidem Tartrate (Ambien) 5 mg QHS PRN PO SLEEP; Start 10/19/16 at 11:00 Famotidine (Pepcid) 20 mg DAILY PO Last administered on 10/20/16 08:44; Admin Dose 20 MG; Start 10/19/16 at 11:00 Heparin Sodium (Porcine) 5000 unit 5,000 unit Q8 SC Last administered on 05:10; Admin Dose 5,000 UNIT; Start 10/19/16 at 14:00 Sodium Chloride (1/2 NS) 1,000 ml @ 50 mls/hr Q20H IV Last administered on 20:09; Admin Dose 50 MLS/HR; Start 10/19/16 at 14:00 Levothyroxine Sodium (Synthroid) 112 mcg DAILY@06 PO Last administered on 05:08; Admin Dose 112 MCG; Start 10/20/16 at 06:00 Metoprolol Succinate (Toprol Xl) 100 mg QHS PO Last administered on 10/19/16 20:56; Admin Dose 100 MG; Start 10/19/16 at 21:00 Allopurinol (Zyloprim) 100 mg QAM PO Last administered on 10/20/16 08:45; Admin Dose 100 MG; Start 10/20/16 at 09:00 Atorvastatin Calcium (Lipitor) 80 mg QHS PO Last administered on 10/19/16 20: 55; Admin Dose 80 MG; Start 10/19/16 at 21:00 Linagliptin (Tradjenta) 5 mg DAILY PO Last administered on 10/20/16 08:45; Admin Dose 5 MG; Start 10/20/16 at 09:00 Insulin Glargine (Lantus) 6 unit DAILY@20 SC Last administered on 10/19/16 20: 07; Admin Dose 6 UNIT; Start 10/19/16 at 20:00 Diagnostic Test (Pha) (Accu-Chek) 1 ea 02 XX Last administered on 10/20/16 02: 24; Admin Dose 1 EA; Start 10/20/16 at 02:00 Miscellaneous Information 1 ea NOTE XX ; Start 10/19/16 at 15:00 Glucose (Glutose) 15 gm Q15M PRN PO DECREASED GLUCOSE; Start 10/19/16 at 15:00 Glucose (Glutose) 22.5 gm Q15M PRN PO DECREASED GLUCOSE; Start 10/19/16 at 15: 00 Dextrose (D50w Syringe) 25 ml Q15M PRN IV DECREASED GLUCOSE; Start 10/19/16 at 15:00 Dextrose (D50w Syringe) 50 ml Q15M PRN IV DECREASED GLUCOSE; Start 10/19/16 at 15:00 Glucagon (Glucagen) 1 mg Q15M PRN IM DECREASED GLUCOSE; Start 10/19/16 at 15:00 Glucose 15 gm 15 gm Q15M PRN BUCCAL DECREASED GLUCOSE; Start 10/19/16 at 15:00 Cefazolin Sodium (Ancef 1 Gm/50 ml (Pmx)) 50 ml @ 100 mls/hr Q12H IVPB Last administered on 10/20/16 04:40; Admin Dose 100 MLS/HR; Start 10/19/16 at 17:00 Acetaminophen/ Hydrocodone Bitart ([place] (5/325)) 1 tab Q6H PRN PO PAIN Last administered on 10/20/16 08:18; Admin Dose 1 TAB; Start 10/19/16 at 17:30 Acetaminophen/ Hydrocodone Bitart ([place] (5/325)) 2 tab Q6H PRN PO PAIN; Start 10/19/16 at 17:30 Cyanocobalamin (Vitamin B12 Inj) 1,000 mcg ONCE ONCE IM ; Start 10/20/16 at 16: 00; Stop 10/20/16 at 16:01 Folic Acid 1 mg 1 mg DAILY PO ; Start 10/20/16 at 13:30; Status UNV Ferric Sodium Gluconate Complex/ Sodium Chloride (Ferrlecit/NS) 110 ml @ 100 mls/hr Q24H IVPB ; Start 10/20/16 at 13:30; Stop 10/22/16 at 14:35; Status UNV Epoetin Al (Epogen (Esrd)) 12,000 units ONCE ONCE SC ; Start 10/20/16 at 16: 00; Stop 10/20/16 at 16:01 Acetylcysteine (Nac) 1,200 mg BID PO ; Start 10/20/16 at 13:30; Stop 10/23/16 at 13:29; Status KASSIDY PIZANO MD Oct 20, 2016 13:20
[2016-10-20 14:00] VITALS: BP 108/60; RESP 20
[2016-10-20] MEDS: ACETYLCYSTEINE 600 MG CAP PO SCH ×2 (14:49→21:44)
[2016-10-20] MEDS: FOLIC ACID 1 MG TAB PO SCH (14:50)
[2016-10-20] MEDS ORDERED: CYANOCOBALAMIN 1000 MCG INJ IM ONE (16:00)
[2016-10-20] MEDS ORDERED: EPOETIN 4000 UNITS/1 ML INJ (ESRD) SC ONE (16:00)
[2016-10-20] MEDS: SOD FERRIC GLUC COMPLX 125 MG in SOD CHLORIDE 0.9% 100 ML IVPB SCH (16:04)
--- NOTE | 2016-10-20 19:46 | CONS ---
Date/Time of Note Date/Time of Note DATE: 10/20/16 TIME: 19:37 Assessment/Plan Assessment/Plan Chief Complaint/Hosp Course 1. Chronic kidney disease with acute worsening of renal function after a right subcapsular hematoma . His renal function is slightly better today. We will continue current treatment and will order laboratory tests for tomorrow 2. Status post ESWL on 09/24/16 for a right kidney stone with subsequent right subcapsular hematoma. The hematoma is stable on CAT scan. 3. Coronary artery disease 4. Diabetes mellitus 5. Hypertension 6. Kidney stones. 7. Anemia, the patient's hemoglobin and hematocrit are drifting down. If they continue to go down further then the patient may need blood transfusion. I did explain this to the patient. Problems: Consultation Date/Type/Reason Admit Date/Time Oct 19, 2016 at 10:45 Initial Consult Date 10/19/16 Type of Consultation: renal Referring Provider: KASSIDY DIAMOND MD 24 HR Interval Summary Free Text/Dictation This patient is being seen today in nephrologic follow-up. He is awake and alert. He has no complaints. Constitutional: improved, no complaints Exam/Review of Systems Vital Signs Vitals Vital Signs Date Time Temp Pulse Resp B/P Pulse Ox O2 Delivery O2 Flow Rate FiO2 10/20/16 14:00 97.5 70 20 108/60 96 10/19/16 14:30 Room Air Intake and Output 10/19/16 10/19/16 10/20/16 15:00 23:00 07:00 Intake Total 290 ml 1010 ml Output Total 425 ml 460 ml Balance -135 ml 550 ml Exam Constitutional: alert, oriented Psych: no complaints Neck: non-tender, supple Respiratory: clear to auscultation, normal air movement Cardiovascular: edema, regular rate and rhythm Gastrointestinal: non-tender, soft Extremities: edema Results Result Diagram: 10/20/16 0443 10/20/16 0443 Results 24 hrs Laboratory Tests Test 10/19/16 20:05 10/19/16 20:53 10/20/16 02:09 10/20/16 04:43 Bedside Glucose 183 189 119 White Blood Count 6.7 Red Blood Count 2.09 L Hemoglobin 7.1 L Hematocrit 23.0 L Mean Corpuscular Volume 110.0 H Mean Corpuscular Hemoglobin 34.0 H Mean Corpuscular Hemoglobin Concent 30.9 L Red Cell Distribution Width 17.6 H Platelet Count 145 # Mean Platelet Volume 10.0 Neutrophils % 62.6 Lymphocytes % 21.6 Monocytes % 13.2 H Eosinophils % 2.2 Basophils % 0.1 Nucleated Red Blood Cells % 0.0 Neutrophils # 4.2 Lymphocytes # 1.4 Monocytes # 0.9 Eosinophils # 0.2 Basophils # 0.0 Nucleated Red Blood Cells # 0.0 Sodium Level 141 Potassium Level 4.5 Chloride Level 107 Carbon Dioxide Level 23 Anion Gap 16 Blood Urea Nitrogen 53 H Creatinine 3.57 H Glucose Level 93 # Calcium Level 8.4 Phosphorus Level 3.8 Magnesium Level 2.0 Iron Level 33 L Total Iron Binding Capacity 241 Percent Iron Saturation 14 L Ferritin 71.2 Total Bilirubin 0.5 Direct Bilirubin 0.00 Indirect Bilirubin 0.5 Aspartate Amino Transf (AST/SGOT) 50 H Alanine Aminotransferase (ALT/SGPT) 44 Alkaline Phosphatase 97 Total Protein 5.5 #L Albumin 3.1 L Globulin 2.40 Albumin/Globulin Ratio 1.29 Thyroid Stimulating Hormone (TSH) 3.690 Test 10/20/16 07:50 10/20/16 10:03 10/20/16 12:08 10/20/16 15:01 Bedside Glucose 88 154 140 173 Test 10/20/16 17:28 Bedside Glucose 159 Medications Medications Current Medications Docusate Sodium (Colace) 100 mg Q12H PRN PO CONSTIPATION; Start 10/19/16 at 11: 00 Zolpidem Tartrate (Ambien) 5 mg QHS PRN PO SLEEP; Start 10/19/16 at 11:00 Famotidine (Pepcid) 20 mg DAILY PO Last administered on 10/20/16 08:44; Admin Dose 20 MG; Start 10/19/16 at 11:00 Heparin Sodium (Porcine) 5000 unit 5,000 unit Q8 SC Last administered on 14:52; Admin Dose 5,000 UNIT; Start 10/19/16 at 14:00 Sodium Chloride (1/2 NS) 1,000 ml @ 50 mls/hr Q20H IV Last administered on 20:09; Admin Dose 50 MLS/HR; Start 10/19/16 at 14:00 Levothyroxine Sodium (Synthroid) 112 mcg DAILY@06 PO Last administered on 05:08; Admin Dose 112 MCG; Start 10/20/16 at 06:00 Metoprolol Succinate (Toprol Xl) 100 mg QHS PO Last administered on 10/19/16 20:56; Admin Dose 100 MG; Start 10/19/16 at 21:00 Allopurinol (Zyloprim) 100 mg QAM PO Last administered on 10/20/16 08:45; Admin Dose 100 MG; Start 10/20/16 at 09:00 Atorvastatin Calcium (Lipitor) 80 mg QHS PO Last administered on 10/19/16 20: 55; Admin Dose 80 MG; Start 10/19/16 at 21:00 Linagliptin (Tradjenta) 5 mg DAILY PO Last administered on 10/20/16 08:45; Admin Dose 5 MG; Start 10/20/16 at 09:00 Insulin Glargine (Lantus) 6 unit DAILY@20 SC Last administered on 10/19/16 20: 07; Admin Dose 6 UNIT; Start 10/19/16 at 20:00 Diagnostic Test (Pha) (Accu-Chek) 1 ea 02 XX Last administered on 10/20/16 02: 24; Admin Dose 1 EA; Start 10/20/16 at 02:00 Miscellaneous Information 1 ea NOTE XX ; Start 10/19/16 at 15:00 Glucose (Glutose) 15 gm Q15M PRN PO DECREASED GLUCOSE; Start 10/19/16 at 15:00 Glucose (Glutose) 22.5 gm Q15M PRN PO DECREASED GLUCOSE; Start 10/19/16 at 15: 00 Dextrose (D50w Syringe) 25 ml Q15M PRN IV DECREASED GLUCOSE; Start 10/19/16 at 15:00 Dextrose (D50w Syringe) 50 ml Q15M PRN IV DECREASED GLUCOSE; Start 10/19/16 at 15:00 Glucagon (Glucagen) 1 mg Q15M PRN IM DECREASED GLUCOSE; Start 10/19/16 at 15:00 Glucose 15 gm 15 gm Q15M PRN BUCCAL DECREASED GLUCOSE; Start 10/19/16 at 15:00 Cefazolin Sodium (Ancef 1 Gm/50 ml (Pmx)) 50 ml @ 100 mls/hr Q12H IVPB Last administered on 10/20/16 17:30; Admin Dose 100 MLS/HR; Start 10/19/16 at 17:00 Acetaminophen/ Hydrocodone Bitart ([place] (5/325)) 1 tab Q6H PRN PO PAIN Last administered on 10/20/16 08:18; Admin Dose 1 TAB; Start 10/19/16 at 17:30 Acetaminophen/ Hydrocodone Bitart ([place] (5/325)) 2 tab Q6H PRN PO PAIN; Start 10/19/16 at 17:30 Folic Acid 1 mg 1 mg DAILY PO Last administered on 10/20/16 14:50; Admin Dose 1 MG; Start 10/20/16 at 13:30 Ferric Sodium Gluconate Complex/ Sodium Chloride (Ferrlecit/NS) 110 ml @ 100 mls/hr Q24H IVPB Last administered on 10/20/16 16:04; Admin Dose 100 MLS/HR; Start 10/20/16 at 16:00; Stop 10/22/16 at 17:05 Acetylcysteine (Nac) 1,200 mg BID PO Last administered on 10/20/16 14:49; Admin Dose 1,200 MG; Start 10/20/16 at 13:30; Stop 10/23/16 at 13:29 MOHAN KANG MD Oct 20, 2016 19:46
[2016-10-20 20:32] VITALS: BP 115/61; RESP 18
--- NOTE | 2016-10-20 21:03 | PN ---
Date/Time of Note Date/Time of Note DATE: 10/20/16 TIME: 20:50 Assessment/Plan VTE Prophylaxis VTE Prophylaxis Intervention: ambulation Lines/Catheters [facility] Peripheral IV Urinary Cath still in place: Yes Reason Cath still needed: other (indicate) (Monitor the urine output) Assessment/Plan Chief Complaint/Hosp Course Right renal subcapsular hematoma status post right extracorporeal shockwave lithotripsy on September 24, 2016. Serum creatinine did go up to 4.59 and then has come down to 3.3 -3.57 His left kidney is smaller than the right kidney, the right renal subcapsular hematoma will gradually subside and renal function will gradually continue to improve. At the present time there is no need for any surgical intervention. Problems: Assessment/Plan Continue to monitor his BUN and creatinine, monitor his H&H and transfuse him as needed. Repeated CT scan of the abdomen and pelvis showed that the subcapsular hematoma is stable. Subjective 24 Hr Interval Summary Free Text/Dictation Patient states he is feeling better. He is bothered by the cellulitis of his lower extremities Constitutional: no complaints, No chills, No febrile Eyes: no complaints ENT: no complaints Respiratory: no complaints, No cough, No pain Cardiovascular: No chest pain Gastrointestinal: no complaints Genitourinary: other (Has a Daniels catheter draining clear urine) Musculoskeletal: no complaints Skin: erythema, other (Cellulitis of the lower extremities) Neurologic: no complaints Endocrine: no complaints Lymphatic: no complaints Psychological: no complaints Exam/Review of Systems Vital Signs Vitals Vital Signs Date Time Temp Pulse Resp B/P Pulse Ox O2 Delivery O2 Flow Rate FiO2 10/20/16 20:32 98.1 90 18 115/61 96 10/19/16 14:30 Room Air Intake and Output 10/19/16 10/19/16 10/20/16 15:00 23:00 07:00 Intake Total 290 ml 1010 ml Output Total 425 ml 460 ml Balance -135 ml 550 ml Exam Constitutional: alert, oriented Psych: no complaints Eyes: nl conjunctiva ENMT: nl external ears & nose Neck: supple Respiratory: normal air movement Cardiovascular: No edema Gastrointestinal: soft Genitourinary - Male: other (Daniels catheter draining clear urine) Extremities: other (Cellulitis of the lower extremities) Skin: ecchymosis Results Result Diagram: 10/20/16 0443 10/20/16 0443 Results 24 hrs Laboratory Tests Test 10/19/16 20:53 10/20/16 02:09 10/20/16 04:43 10/20/16 07:50 Bedside Glucose 189 119 88 White Blood Count 6.7 Red Blood Count 2.09 L Hemoglobin 7.1 L Hematocrit 23.0 L Mean Corpuscular Volume 110.0 H Mean Corpuscular Hemoglobin 34.0 H Mean Corpuscular Hemoglobin Concent 30.9 L Red Cell Distribution Width 17.6 H Platelet Count 145 # Mean Platelet Volume 10.0 Neutrophils % 62.6 Lymphocytes % 21.6 Monocytes % 13.2 H Eosinophils % 2.2 Basophils % 0.1 Nucleated Red Blood Cells % 0.0 Neutrophils # 4.2 Lymphocytes # 1.4 Monocytes # 0.9 Eosinophils # 0.2 Basophils # 0.0 Nucleated Red Blood Cells # 0.0 Sodium Level 141 Potassium Level 4.5 Chloride Level 107 Carbon Dioxide Level 23 Anion Gap 16 Blood Urea Nitrogen 53 H Creatinine 3.57 H Glucose Level 93 # Calcium Level 8.4 Phosphorus Level 3.8 Magnesium Level 2.0 Iron Level 33 L Total Iron Binding Capacity 241 Percent Iron Saturation 14 L Ferritin 71.2 Total Bilirubin 0.5 Direct Bilirubin 0.00 Indirect Bilirubin 0.5 Aspartate Amino Transf (AST/SGOT) 50 H Alanine Aminotransferase (ALT/SGPT) 44 Alkaline Phosphatase 97 Total Protein 5.5 #L Albumin 3.1 L Globulin 2.40 Albumin/Globulin Ratio 1.29 Thyroid Stimulating Hormone (TSH) 3.690 Test 10/20/16 10:03 10/20/16 12:08 10/20/16 15:01 10/20/16 17:28 Bedside Glucose 154 140 173 159 Medications Medications Current Medications Docusate Sodium (Colace) 100 mg Q12H PRN PO CONSTIPATION; Start 10/19/16 at 11: 00 Zolpidem Tartrate (Ambien) 5 mg QHS PRN PO SLEEP; Start 10/19/16 at 11:00 Famotidine (Pepcid) 20 mg DAILY PO Last administered on 10/20/16 08:44; Admin Dose 20 MG; Start 10/19/16 at 11:00 Heparin Sodium (Porcine) 5000 unit 5,000 unit Q8 SC Last administered on 14:52; Admin Dose 5,000 UNIT; Start 10/19/16 at 14:00 Sodium Chloride (1/2 NS) 1,000 ml @ 50 mls/hr Q20H IV Last administered on 20:09; Admin Dose 50 MLS/HR; Start 10/19/16 at 14:00 Levothyroxine Sodium (Synthroid) 112 mcg DAILY@06 PO Last administered on 05:08; Admin Dose 112 MCG; Start 10/20/16 at 06:00 Metoprolol Succinate (Toprol Xl) 100 mg QHS PO Last administered on 10/19/16 20:56; Admin Dose 100 MG; Start 10/19/16 at 21:00 Allopurinol (Zyloprim) 100 mg QAM PO Last administered on 10/20/16 08:45; Admin Dose 100 MG; Start 10/20/16 at 09:00 Atorvastatin Calcium (Lipitor) 80 mg QHS PO Last administered on 10/19/16 20: 55; Admin Dose 80 MG; Start 10/19/16 at 21:00 Linagliptin (Tradjenta) 5 mg DAILY PO Last administered on 10/20/16 08:45; Admin Dose 5 MG; Start 10/20/16 at 09:00 Insulin Glargine (Lantus) 6 unit DAILY@20 SC Last administered on 10/19/16 20: 07; Admin Dose 6 UNIT; Start 10/19/16 at 20:00 Diagnostic Test (Pha) (Accu-Chek) 1 ea 02 XX Last administered on 10/20/16 02: 24; Admin Dose 1 EA; Start 10/20/16 at 02:00 Miscellaneous Information 1 ea NOTE XX ; Start 10/19/16 at 15:00 Glucose (Glutose) 15 gm Q15M PRN PO DECREASED GLUCOSE; Start 10/19/16 at 15:00 Glucose (Glutose) 22.5 gm Q15M PRN PO DECREASED GLUCOSE; Start 10/19/16 at 15: 00 Dextrose (D50w Syringe) 25 ml Q15M PRN IV DECREASED GLUCOSE; Start 10/19/16 at 15:00 Dextrose (D50w Syringe) 50 ml Q15M PRN IV DECREASED GLUCOSE; Start 10/19/16 at 15:00 Glucagon (Glucagen) 1 mg Q15M PRN IM DECREASED GLUCOSE; Start 10/19/16 at 15:00 Glucose 15 gm 15 gm Q15M PRN BUCCAL DECREASED GLUCOSE; Start 10/19/16 at 15:00 Cefazolin Sodium (Ancef 1 Gm/50 ml (Pmx)) 50 ml @ 100 mls/hr Q12H IVPB Last administered on 10/20/16 17:30; Admin Dose 100 MLS/HR; Start 10/19/16 at 17:00 Acetaminophen/ Hydrocodone Bitart ([place] (5/325)) 1 tab Q6H PRN PO PAIN Last administered on 10/20/16 08:18; Admin Dose 1 TAB; Start 10/19/16 at 17:30 Acetaminophen/ Hydrocodone Bitart ([place] (5/325)) 2 tab Q6H PRN PO PAIN; Start 10/19/16 at 17:30 Folic Acid 1 mg 1 mg DAILY PO Last administered on 10/20/16 14:50; Admin Dose 1 MG; Start 10/20/16 at 13:30 Ferric Sodium Gluconate Complex/ Sodium Chloride (Ferrlecit/NS) 110 ml @ 100 mls/hr Q24H IVPB Last administered on 10/20/16 16:04; Admin Dose 100 MLS/HR; Start 10/20/16 at 16:00; Stop 10/22/16 at 17:05 Acetylcysteine (Nac) 1,200 mg BID PO Last administered on 10/20/16 14:49; Admin Dose 1,200 MG; Start 10/20/16 at 13:30; Stop 10/23/16 at 13:29 TINO ALLISON MD Oct 20, 2016 21:00
[2016-10-20] MEDS: METOPROLOL (XL) 100 MG TAB PO SCH (21:44)
[2016-10-20] MEDS: SOD CHLORIDE 0.45% 1,000 ML IV SCH (21:44)
[2016-10-20] MEDS: ATORVASTATIN 80 MG TAB PO SCH (21:44)
[2016-10-20] MEDS: INSULIN GLARGINE [LANtus] 3 ML PEN SC SCH (21:49)
[2016-10-21] MEDS: ACCU-CHEK XX SCH ×4 (01:16→20:52)
[2016-10-21 02:02] VITALS: BP 117/62; RESP 17
[2016-10-21 03:35] LABS: PROTEIN, TOTAL 5.7 g/dL (6.1-8.1)
[2016-10-21] MEDS: LEVOTHYROXINE 112 MCG TAB PO SCH (05:40)
[2016-10-21] MEDS: HEPARIN 5,000 UNIT/0.5 ML VIAL SC SCH ×3 (05:42→20:58)
[2016-10-21] MEDS: CEFAZOLIN 1 GM/50 ML (PMX) 50 ML IVPB SCH ×2 (05:43→17:31)
[2016-10-21 06:29] LABS: ADD SCAN DIFF NO
[2016-10-21 06:32] LABS: BASOPHILS % 0.3 % (0.0-2.0); EOSINOPHILS # 0.2 10^3/ul (0.0-0.5); EOSINOPHILS % 3.2 % (0.0-7.0); HEMATOCRIT 24.9 % (42.0-52.0); HEMOGLOBIN 7.9 g/dl (14.0-18.0); LYMPHOCYTES # 1.3 10^3/ul (0.8-2.9); LYMPHOCYTES % 19.8 % (15.0-51.0); MEAN CORPUSCULAR HEMOGLOBIN 34.3 pg (29.0-33.0); MEAN CORPUSCULAR HGB CONC 31.7 g/dl (32.0-37.0); MEAN CORPUSCULAR VOLUME 108.3 fl (82.0-101.0); MONOCYTES % 14.4 % (0.0-11.0); NEUTROPHIL # 4.1 10^3/ul (1.6-7.5); NEUTROPHILS % 61.8 % (39.0-77.0); PLATELET COUNT 155 10^3/UL (140-415); RED CELL DISTRIBUTION WIDTH 17.5 % (11.5-14.5); WHITE BLOOD COUNT 6.6 10^3/ul (4.8-10.8)
[2016-10-21 07:05] LABS: CALCIUM 8.5 mg/dl (8.4-10.2); CREATININE 3.01 mg/dl (0.61-1.24); POTASSIUM 4.8 mmol/L (3.5-5.1)
[2016-10-21] MEDS: INSULIN ASPART [NOVOLOG] 3 ML PEN SC SCH ×7 (07:57→20:52)
[2016-10-21 08:02] VITALS: BP 113/65; RESP 18
[2016-10-21] MEDS: ACETYLCYSTEINE 600 MG CAP PO SCH ×2 (08:12→20:55)
[2016-10-21] MEDS: LINAGLIPTIN 5 MG TABLET PO SCH (08:13)
[2016-10-21] MEDS: FAMOTIDINE 20 MG TAB PO SCH (08:13)
[2016-10-21] MEDS: ALLOPURINOL 100 MG TAB PO SCH (08:13)
[2016-10-21] MEDS: FOLIC ACID 1 MG TAB PO SCH (08:13)
[2016-10-21] MEDS: HYDROCODONE/APAP (5/325) TAB PO PRN (08:30)
--- NOTE | 2016-10-21 13:57 | CONS ---
Date/Time of Note Date/Time of Note DATE: 10/21/16 TIME: 13:52 Assessment/Plan Assessment/Plan Chief Complaint/Hosp Course 1. Chronic kidney disease with acute worsening of renal function after a right subcapsular hematoma . His renal function continues to improve. His urine output is increasing. He either has some trauma to the kidney or he may have suffered an episode of acute tubular necrosis . In any event his kidney function is improving. Continue current management. 2. Status post ESWL on 09/24/16 for a right kidney stone with subsequent right subcapsular hematoma. The hematoma is stable on CAT scan. 3. Coronary artery disease 4. Diabetes mellitus 5. Hypertension 6. Kidney stones. 7. Anemia, the patient's hemoglobin and hematocrit have increased from yesterday. No need for transfusion at this time. Continue current management. Problems: Consultation Date/Type/Reason Admit Date/Time Oct 19, 2016 at 10:45 Initial Consult Date 10/19/16 Type of Consultation: renal Referring Provider: KASSIDY DIAMOND MD 24 HR Interval Summary Free Text/Dictation The patient is awake and alert. He has no complaints. I am seeing the patient in renal follow-up. Constitutional: improved, no complaints Exam/Review of Systems Vital Signs Vitals Vital Signs Date Time Temp Pulse Resp B/P Pulse Ox O2 Delivery O2 Flow Rate FiO2 10/21/16 08:02 97.7 84 18 113/65 97 10/19/16 14:30 Room Air Intake and Output 10/20/16 10/20/16 10/21/16 15:00 23:00 07:00 Intake Total 1750 ml 700 ml Output Total 500 ml 1300 ml Balance 1250 ml -600 ml Exam Constitutional: alert, frail, oriented Respiratory: clear to auscultation, normal air movement Cardiovascular: edema, regular rate and rhythm Extremities: edema Results Result Diagram: 10/21/16 0551 10/21/16 0551 Results 24 hrs Laboratory Tests Test 10/20/16 15:01 10/20/16 17:28 10/20/16 21:37 10/21/16 05:51 Bedside Glucose 173 159 173 White Blood Count 6.6 Red Blood Count 2.30 L Hemoglobin 7.9 L Hematocrit 24.9 L Mean Corpuscular Volume 108.3 H Mean Corpuscular Hemoglobin 34.3 H Mean Corpuscular Hemoglobin Concent 31.7 L Red Cell Distribution Width 17.5 H Platelet Count 155 Mean Platelet Volume 10.0 Neutrophils % 61.8 Lymphocytes % 19.8 Monocytes % 14.4 H Eosinophils % 3.2 Basophils % 0.3 Nucleated Red Blood Cells % 0.0 Neutrophils # 4.1 Lymphocytes # 1.3 Monocytes # 1.0 H Eosinophils # 0.2 Basophils # 0.0 Nucleated Red Blood Cells # 0.0 Erythrocyte Sedimentation Rate 89 H Sodium Level 138 Potassium Level 4.8 Chloride Level 104 Carbon Dioxide Level 23 Anion Gap 16 Blood Urea Nitrogen 48 H Creatinine 3.01 H Glucose Level 118 Calcium Level 8.5 C-Reactive Protein 4.5 H Test 10/21/16 07:55 10/21/16 10:36 10/21/16 12:09 Bedside Glucose 135 212 174 Medications Medications Current Medications Docusate Sodium (Colace) 100 mg Q12H PRN PO CONSTIPATION; Start 10/19/16 at 11: 00 Zolpidem Tartrate (Ambien) 5 mg QHS PRN PO SLEEP; Start 10/19/16 at 11:00 Famotidine (Pepcid) 20 mg DAILY PO Last administered on 10/21/16 08:13; Admin Dose 20 MG; Start 10/19/16 at 11:00 Heparin Sodium (Porcine) 5000 unit 5,000 unit Q8 SC Last administered on 05:42; Admin Dose 5,000 UNIT; Start 10/19/16 at 14:00 Sodium Chloride (1/2 NS) 1,000 ml @ 50 mls/hr Q20H IV Last administered on 21:44; Admin Dose 50 MLS/HR; Start 10/19/16 at 14:00 Levothyroxine Sodium (Synthroid) 112 mcg DAILY@06 PO Last administered on 05:40; Admin Dose 112 MCG; Start 10/20/16 at 06:00 Metoprolol Succinate (Toprol Xl) 100 mg QHS PO Last administered on 10/20/16 21:44; Admin Dose 100 MG; Start 10/19/16 at 21:00 Allopurinol (Zyloprim) 100 mg QAM PO Last administered on 10/21/16 08:13; Admin Dose 100 MG; Start 10/20/16 at 09:00 Atorvastatin Calcium (Lipitor) 80 mg QHS PO Last administered on 10/20/16 21: 44; Admin Dose 80 MG; Start 10/19/16 at 21:00 Linagliptin (Tradjenta) 5 mg DAILY PO Last administered on 10/21/16 08:13; Admin Dose 5 MG; Start 10/20/16 at 09:00 Insulin Glargine (Lantus) 6 unit DAILY@20 SC Last administered on 10/20/16 21: 49; Admin Dose 6 UNIT; Start 10/19/16 at 20:00 Diagnostic Test (Pha) (Accu-Chek) 1 ea 02 XX Last administered on 10/20/16 02: 24; Admin Dose 1 EA; Start 10/20/16 at 02:00 Miscellaneous Information 1 ea NOTE XX ; Start 10/19/16 at 15:00 Glucose (Glutose) 15 gm Q15M PRN PO DECREASED GLUCOSE; Start 10/19/16 at 15:00 Glucose (Glutose) 22.5 gm Q15M PRN PO DECREASED GLUCOSE; Start 10/19/16 at 15: 00 Dextrose (D50w Syringe) 25 ml Q15M PRN IV DECREASED GLUCOSE; Start 10/19/16 at 15:00 Dextrose (D50w Syringe) 50 ml Q15M PRN IV DECREASED GLUCOSE; Start 10/19/16 at 15:00 Glucagon (Glucagen) 1 mg Q15M PRN IM DECREASED GLUCOSE; Start 10/19/16 at 15:00 Glucose 15 gm 15 gm Q15M PRN BUCCAL DECREASED GLUCOSE; Start 10/19/16 at 15:00 Cefazolin Sodium (Ancef 1 Gm/50 ml (Pmx)) 50 ml @ 100 mls/hr Q12H IVPB Last administered on 10/21/16 05:43; Admin Dose 100 MLS/HR; Start 10/19/16 at 17:00 Acetaminophen/ Hydrocodone Bitart ([place] (5/325)) 1 tab Q6H PRN PO PAIN Last administered on 10/20/16 21:45; Admin Dose 1 TAB; Start 10/19/16 at 17:30 Acetaminophen/ Hydrocodone Bitart ([place] (5/325)) 2 tab Q6H PRN PO PAIN Last administered on 10/21/16 08:30; Admin Dose 2 TAB; Start 10/19/16 at 17:30 Folic Acid 1 mg 1 mg DAILY PO Last administered on 10/21/16 08:13; Admin Dose 1 MG; Start 10/20/16 at 13:30 Ferric Sodium Gluconate Complex/ Sodium Chloride (Ferrlecit/NS) 110 ml @ 100 mls/hr Q24H IVPB Last administered on 10/20/16 16:04; Admin Dose 100 MLS/HR; Start 10/20/16 at 16:00; Stop 10/22/16 at 17:05 Acetylcysteine (Nac) 1,200 mg BID PO Last administered on 10/21/16 08:12; Admin Dose 1,200 MG; Start 10/20/16 at 13:30; Stop 10/23/16 at 13:29 MOHAN KANG MD Oct 21, 2016 13:57
[2016-10-21 14:40] VITALS: BP 124/82; RESP 18
[2016-10-21] MEDS ORDERED: COLLAGENASE 30 GM TUBE TOP PRN (15:00)
[2016-10-21] MEDS ORDERED: PENDING SANTYL ORDER FOR WOUND CARE XX PRN (15:00)
[2016-10-21 15:51] LABS: ABNORMAL PROTEIN BAND 1 0.6 g/dL (NONE DETECTED); ALBUMIN 2.7 g/dL (3.8-4.8)
[2016-10-21] MEDS ORDERED: CYANOCOBALAMIN 1000 MCG INJ IM ONE (16:00)
[2016-10-21] MEDS: SOD FERRIC GLUC COMPLX 125 MG in SOD CHLORIDE 0.9% 100 ML IVPB SCH (16:59)
[2016-10-21 17:14] LABS: CREATININE, RANDOM URINE 82 mg/dL (20-370); PROTEIN/CREATININE RATIO 524 mg/g creat (22-128)
[2016-10-21] MEDS: COLLAGENASE 30 GM TUBE TOP SCH (17:31)
--- NOTE | 2016-10-21 17:33 | RADRPT ---
Vent Rate: 68 bpm RR Interval: 0 msec MO Interval: 0 msec QRS Duration: 104 msec QT Interval: 420 msec QTC Interval: 446 msec P-R-T Colp: 0 - 47 - 116 degrees Atrial fibrillation Nonspecific T wave abnormality , probably digitalis effect Abnormal ECG Electronically Signed By: Hai Cottrell [id number]
[2016-10-21 20:41] VITALS: BP 117/70; RESP 18
--- NOTE | 2016-10-21 20:44 | PN ---
Date/Time of Note Date/Time of Note DATE: 10/21/16 TIME: 20:34 Assessment/Plan VTE Prophylaxis VTE Prophylaxis Intervention: contraindicated Lines/Catheters IV Catheter Type (from [facility]): Peripheral IV Urinary Cath still in place: Yes Reason Cath still needed: other (indicate) (Monitor his urine output and the color of his urine) Assessment/Plan Chief Complaint/Hosp Course Right renal subcapsular hematoma status post right extracorporeal shockwave lithotripsy on September 24, 2016. Serum creatinine did go up to 4.59 and then has come down to 3.1 today His left kidney is smaller than the right kidney, the right renal subcapsular hematoma will gradually subside and renal function will gradually continue to improve. At the present time there is no need for any surgical intervention. Problems: Subjective 24 Hr Interval Summary Free Text/Dictation Patient states he is feeling better, has a cough, he had a good bowel movement today Constitutional: no complaints Eyes: no complaints ENT: no complaints Respiratory: cough, No pain Cardiovascular: no complaints Gastrointestinal: passing stool, No nausea, No vomiting Genitourinary: other (Has an indwelling Daniels catheter with clear urine), No hematuria Musculoskeletal: no complaints Skin: no complaints Neurologic: no complaints Endocrine: no complaints Lymphatic: no complaints Psychological: no complaints Immunologic: no complaints Exam/Review of Systems Vital Signs Vitals Vital Signs Date Time Temp Pulse Resp B/P Pulse Ox O2 Delivery O2 Flow Rate FiO2 10/21/16 14:40 97.8 85 18 124/82 96 10/19/16 14:30 Room Air Intake and Output 10/20/16 10/20/16 10/21/16 15:00 23:00 07:00 Intake Total 1750 ml 700 ml Output Total 500 ml 1300 ml Balance 1250 ml -600 ml Exam Constitutional: alert, oriented Psych: no complaints Head: normocephalic Eyes: nl conjunctiva ENMT: nl external ears & nose Neck: supple Respiratory: normal air movement Cardiovascular: regular rate and rhythm Gastrointestinal: non-tender, soft Genitourinary - Male: other (Daniels catheter draining clear urine), No CVA tenderness Extremities: other (Cellulitis of both lower extremities) Skin: ecchymosis Results Result Diagram: 10/21/16 0551 10/21/16 0551 Results 24 hrs Laboratory Tests Test 10/20/16 21:37 10/21/16 05:51 10/21/16 07:55 10/21/16 10:36 Bedside Glucose 173 135 212 White Blood Count 6.6 Red Blood Count 2.30 L Hemoglobin 7.9 L Hematocrit 24.9 L Mean Corpuscular Volume 108.3 H Mean Corpuscular Hemoglobin 34.3 H Mean Corpuscular Hemoglobin Concent 31.7 L Red Cell Distribution Width 17.5 H Platelet Count 155 Mean Platelet Volume 10.0 Neutrophils % 61.8 Lymphocytes % 19.8 Monocytes % 14.4 H Eosinophils % 3.2 Basophils % 0.3 Nucleated Red Blood Cells % 0.0 Neutrophils # 4.1 Lymphocytes # 1.3 Monocytes # 1.0 H Eosinophils # 0.2 Basophils # 0.0 Nucleated Red Blood Cells # 0.0 Erythrocyte Sedimentation Rate 89 H Sodium Level 138 Potassium Level 4.8 Chloride Level 104 Carbon Dioxide Level 23 Anion Gap 16 Blood Urea Nitrogen 48 H Creatinine 3.01 H Glucose Level 118 Calcium Level 8.5 C-Reactive Protein 4.5 H Test 10/21/16 12:09 10/21/16 14:40 10/21/16 17:32 Bedside Glucose 174 181 350 H Medications Medications Current Medications Docusate Sodium (Colace) 100 mg Q12H PRN PO CONSTIPATION; Start 10/19/16 at 11: 00 Zolpidem Tartrate (Ambien) 5 mg QHS PRN PO SLEEP; Start 10/19/16 at 11:00 Famotidine (Pepcid) 20 mg DAILY PO Last administered on 10/21/16 08:13; Admin Dose 20 MG; Start 10/19/16 at 11:00 Heparin Sodium (Porcine) 5000 unit 5,000 unit Q8 SC Last administered on 14:36; Admin Dose 5,000 UNIT; Start 10/19/16 at 14:00 Sodium Chloride (1/2 NS) 1,000 ml @ 50 mls/hr Q20H IV Last administered on 21:44; Admin Dose 50 MLS/HR; Start 10/19/16 at 14:00 Levothyroxine Sodium (Synthroid) 112 mcg DAILY@06 PO Last administered on 05:40; Admin Dose 112 MCG; Start 10/20/16 at 06:00 Metoprolol Succinate (Toprol Xl) 100 mg QHS PO Last administered on 10/20/16 21:44; Admin Dose 100 MG; Start 10/19/16 at 21:00 Allopurinol (Zyloprim) 100 mg QAM PO Last administered on 10/21/16 08:13; Admin Dose 100 MG; Start 10/20/16 at 09:00 Atorvastatin Calcium (Lipitor) 80 mg QHS PO Last administered on 10/20/16 21: 44; Admin Dose 80 MG; Start 10/19/16 at 21:00 Linagliptin (Tradjenta) 5 mg DAILY PO Last administered on 10/21/16 08:13; Admin Dose 5 MG; Start 10/20/16 at 09:00 Insulin Glargine (Lantus) 6 unit DAILY@20 SC Last administered on 10/20/16 21: 49; Admin Dose 6 UNIT; Start 10/19/16 at 20:00 Diagnostic Test (Pha) (Accu-Chek) 1 ea 02 XX Last administered on 10/20/16 02: 24; Admin Dose 1 EA; Start 10/20/16 at 02:00 Miscellaneous Information 1 ea NOTE XX ; Start 10/19/16 at 15:00 Glucose (Glutose) 15 gm Q15M PRN PO DECREASED GLUCOSE; Start 10/19/16 at 15:00 Glucose (Glutose) 22.5 gm Q15M PRN PO DECREASED GLUCOSE; Start 10/19/16 at 15: 00 Dextrose (D50w Syringe) 25 ml Q15M PRN IV DECREASED GLUCOSE; Start 10/19/16 at 15:00 Dextrose (D50w Syringe) 50 ml Q15M PRN IV DECREASED GLUCOSE; Start 10/19/16 at 15:00 Glucagon (Glucagen) 1 mg Q15M PRN IM DECREASED GLUCOSE; Start 10/19/16 at 15:00 Glucose 15 gm 15 gm Q15M PRN BUCCAL DECREASED GLUCOSE; Start 10/19/16 at 15:00 Cefazolin Sodium (Ancef 1 Gm/50 ml (Pmx)) 50 ml @ 100 mls/hr Q12H IVPB Last administered on 10/21/16 17:31; Admin Dose 100 MLS/HR; Start 10/19/16 at 17:00 Acetaminophen/ Hydrocodone Bitart ([place] (5/325)) 1 tab Q6H PRN PO PAIN Last administered on 10/20/16 21:45; Admin Dose 1 TAB; Start 10/19/16 at 17:30 Acetaminophen/ Hydrocodone Bitart ([place] (5/325)) 2 tab Q6H PRN PO PAIN Last administered on 10/21/16 08:30; Admin Dose 2 TAB; Start 10/19/16 at 17:30 Folic Acid 1 mg 1 mg DAILY PO Last administered on 10/21/16 08:13; Admin Dose 1 MG; Start 10/20/16 at 13:30 Ferric Sodium Gluconate Complex/ Sodium Chloride (Ferrlecit/NS) 110 ml @ 100 mls/hr Q24H IVPB Last administered on 10/21/16 16:59; Admin Dose 100 MLS/HR; Start 10/20/16 at 16:00; Stop 10/22/16 at 17:05 Acetylcysteine (Nac) 1,200 mg BID PO Last administered on 10/21/16 08:12; Admin Dose 1,200 MG; Start 10/20/16 at 13:30; Stop 10/23/16 at 13:29 Epoetin Al (Epogen (Neserd)) 6,000 units MoWeFr@17 SC ; Start 10/22/16 at 17: 00; Stop 10/27/16 at 16:59 Collagenase (Santyl) 1 applic DAILY TOP Last administered on 10/21/16 17:31; Admin Dose 1 APPLIC; Start 10/21/16 at 16:00 Collagenase (Santyl) 1 applic PRN PRN TOP WOUND CARE; Start 10/21/16 at 15:00 TINO ALLISON MD Oct 21, 2016 20:44
[2016-10-21] MEDS: ATORVASTATIN 80 MG TAB PO SCH (20:55)
[2016-10-21] MEDS: METOPROLOL (XL) 100 MG TAB PO SCH (20:55)
[2016-10-21] MEDS: INSULIN GLARGINE [LANtus] 3 ML PEN SC SCH (20:56)
[2016-10-22] MEDS: ACCU-CHEK XX SCH ×3 (02:00→14:00)
[2016-10-22 02:36] VITALS: BP 117/69; RESP 16
[2016-10-22] MEDS: SOD CHLORIDE 0.45% 1,000 ML IV SCH ×2 (03:04→19:41)
[2016-10-22] MEDS: CEFAZOLIN 1 GM/50 ML (PMX) 50 ML IVPB SCH ×2 (05:32→17:26)
[2016-10-22] MEDS: LEVOTHYROXINE 112 MCG TAB PO SCH (05:32)
[2016-10-22] MEDS: HEPARIN 5,000 UNIT/0.5 ML VIAL SC SCH ×3 (05:33→21:30)
[2016-10-22 06:01] LABS: ADD SCAN DIFF NO; BASOPHILS % 0.3 % (0.0-2.0); EOSINOPHILS # 0.2 10^3/ul (0.0-0.5); EOSINOPHILS % 3.5 % (0.0-7.0); HEMATOCRIT 24.8 % (42.0-52.0); HEMOGLOBIN 7.7 g/dl (14.0-18.0); LYMPHOCYTES # 1.1 10^3/ul (0.8-2.9); LYMPHOCYTES % 17.5 % (15.0-51.0); MEAN CORPUSCULAR HEMOGLOBIN 33.5 pg (29.0-33.0); MEAN CORPUSCULAR VOLUME 107.8 fl (82.0-101.0); MEAN PLATELET VOLUME 9.9 fl (7.4-10.4); NEUTROPHIL # 4.1 10^3/ul (1.6-7.5); NEUTROPHILS % 63.1 % (39.0-77.0); PLATELET COUNT 153 10^3/UL (140-415); RED CELL DISTRIBUTION WIDTH 17.5 % (11.5-14.5); WHITE BLOOD COUNT 6.5 10^3/ul (4.8-10.8)
[2016-10-22 06:53] LABS: ALBUMIN 2.6 g/dl (3.3-4.9); ALBUMIN/GLOBULIN RATIO 0.89; BILIRUBIN,INDIRECT 0.3 mg/dl (0-1.1); BILIRUBIN,TOTAL 0.3 mg/dl (0.2-1.3); CALCIUM 8.4 mg/dl (8.4-10.2); CREATININE 2.66 mg/dl (0.61-1.24); TOTAL PROTEIN 5.5 g/dl (6.1-8.1)
[2016-10-22 07:10] VITALS: BP 112/74; RESP 16
--- NOTE | 2016-10-22 08:10 | CONS ---
Date/Time of Note Date/Time of Note DATE: 10/22/16 TIME: 08:07 Assessment/Plan Assessment/Plan Chief Complaint/Hosp Course 1. Chronic kidney disease with acute worsening of renal function after a right subcapsular hematoma . His renal function continues to improve. His urine output is increasing. He either has some trauma to the kidney or he may have suffered an episode of acute tubular necrosis . In any event his kidney function is improving. Continue current management. I will sign off at this point and see again on request. 2. Status post ESWL on 09/24/16 for a right kidney stone with subsequent right subcapsular hematoma. The hematoma is stable on CAT scan. 3. Coronary artery disease 4. Diabetes mellitus 5. Hypertension 6. Kidney stones. 7. Anemia, the patient's hemoglobin and hematocrit are stable. Continue current management. Problems: Consultation Date/Type/Reason Admit Date/Time Oct 19, 2016 at 10:45 Initial Consult Date 10/19/16 Type of Consultation: renal Referring Provider: KASSIDY DIAMOND MD 24 HR Interval Summary Free Text/Dictation I am seeing the patient today in the nephrologic follow-up. He is feeling well. Constitutional: improved, no complaints Exam/Review of Systems Vital Signs Vitals Vital Signs Date Time Temp Pulse Resp B/P Pulse Ox O2 Delivery O2 Flow Rate FiO2 10/22/16 07:10 98.2 57 16 112/74 94 10/19/16 14:30 Room Air Intake and Output 10/21/16 10/21/16 10/22/16 15:00 23:00 07:00 Intake Total 1200 ml 990 ml Output Total 650 ml 900 ml Balance 550 ml 90 ml Exam He has lower extremity stasis changes. Constitutional: alert, frail, oriented Neck: non-tender, supple Respiratory: clear to auscultation, normal air movement Cardiovascular: edema, regular rate and rhythm Extremities: edema Results Result Diagram: 10/22/16 0515 10/22/16 0515 Results 24 hrs Laboratory Tests Test 10/21/16 10:36 10/21/16 12:09 10/21/16 14:40 10/21/16 17:32 Bedside Glucose 212 174 181 350 H Test 10/21/16 20:52 10/22/16 05:15 Bedside Glucose 134 White Blood Count 6.5 Red Blood Count 2.30 L Hemoglobin 7.7 L Hematocrit 24.8 L Mean Corpuscular Volume 107.8 H Mean Corpuscular Hemoglobin 33.5 H Mean Corpuscular Hemoglobin Concent 31.0 L Red Cell Distribution Width 17.5 H Platelet Count 153 Mean Platelet Volume 9.9 Neutrophils % 63.1 Lymphocytes % 17.5 Monocytes % 15.0 H Eosinophils % 3.5 Basophils % 0.3 Nucleated Red Blood Cells % 0.0 Neutrophils # 4.1 Lymphocytes # 1.1 Monocytes # 1.0 H Eosinophils # 0.2 Basophils # 0.0 Nucleated Red Blood Cells # 0.0 Sodium Level 136 Potassium Level 5.0 Chloride Level 102 Carbon Dioxide Level 22 Anion Gap 17 H Blood Urea Nitrogen 42 H Creatinine 2.66 H Glucose Level 149 Calcium Level 8.4 Total Bilirubin 0.3 Direct Bilirubin 0.00 Indirect Bilirubin 0.3 Aspartate Amino Transf (AST/SGOT) 60 H Alanine Aminotransferase (ALT/SGPT) 33 Alkaline Phosphatase 110 Total Protein 5.5 L Albumin 2.6 L Globulin 2.90 Albumin/Globulin Ratio 0.89 Medications Medications Current Medications Docusate Sodium (Colace) 100 mg Q12H PRN PO CONSTIPATION; Start 10/19/16 at 11: 00 Zolpidem Tartrate (Ambien) 5 mg QHS PRN PO SLEEP; Start 10/19/16 at 11:00 Famotidine (Pepcid) 20 mg DAILY PO Last administered on 10/21/16 08:13; Admin Dose 20 MG; Start 10/19/16 at 11:00 Heparin Sodium (Porcine) 5000 unit 5,000 unit Q8 SC Last administered on 05:33; Admin Dose 5,000 UNIT; Start 10/19/16 at 14:00 Sodium Chloride (1/2 NS) 1,000 ml @ 50 mls/hr Q20H IV Last administered on 21:44; Admin Dose 50 MLS/HR; Start 10/19/16 at 14:00 Levothyroxine Sodium (Synthroid) 112 mcg DAILY@06 PO Last administered on 05:32; Admin Dose 112 MCG; Start 10/20/16 at 06:00 Metoprolol Succinate (Toprol Xl) 100 mg QHS PO Last administered on 10/21/16 20:55; Admin Dose 100 MG; Start 10/19/16 at 21:00 Allopurinol (Zyloprim) 100 mg QAM PO Last administered on 10/21/16 08:13; Admin Dose 100 MG; Start 10/20/16 at 09:00 Atorvastatin Calcium (Lipitor) 80 mg QHS PO Last administered on 10/21/16 20: 55; Admin Dose 80 MG; Start 10/19/16 at 21:00 Linagliptin (Tradjenta) 5 mg DAILY PO Last administered on 10/21/16 08:13; Admin Dose 5 MG; Start 10/20/16 at 09:00 Insulin Glargine (Lantus) 6 unit DAILY@20 SC Last administered on 10/21/16 20: 56; Admin Dose 6 UNIT; Start 10/19/16 at 20:00 Diagnostic Test (Pha) (Accu-Chek) 1 ea 02 XX Last administered on 10/20/16 02: 24; Admin Dose 1 EA; Start 10/20/16 at 02:00 Miscellaneous Information 1 ea NOTE XX ; Start 10/19/16 at 15:00 Glucose (Glutose) 15 gm Q15M PRN PO DECREASED GLUCOSE; Start 10/19/16 at 15:00 Glucose (Glutose) 22.5 gm Q15M PRN PO DECREASED GLUCOSE; Start 10/19/16 at 15: 00 Dextrose (D50w Syringe) 25 ml Q15M PRN IV DECREASED GLUCOSE; Start 10/19/16 at 15:00 Dextrose (D50w Syringe) 50 ml Q15M PRN IV DECREASED GLUCOSE; Start 10/19/16 at 15:00 Glucagon (Glucagen) 1 mg Q15M PRN IM DECREASED GLUCOSE; Start 10/19/16 at 15:00 Glucose 15 gm 15 gm Q15M PRN BUCCAL DECREASED GLUCOSE; Start 10/19/16 at 15:00 Cefazolin Sodium (Ancef 1 Gm/50 ml (Pmx)) 50 ml @ 100 mls/hr Q12H IVPB Last administered on 10/22/16 05:32; Admin Dose 100 MLS/HR; Start 10/19/16 at 17:00 Acetaminophen/ Hydrocodone Bitart ([place] (5/325)) 1 tab Q6H PRN PO PAIN Last administered on 10/20/16 21:45; Admin Dose 1 TAB; Start 10/19/16 at 17:30 Acetaminophen/ Hydrocodone Bitart ([place] (5/325)) 2 tab Q6H PRN PO PAIN Last administered on 10/21/16 08:30; Admin Dose 2 TAB; Start 10/19/16 at 17:30 Folic Acid 1 mg 1 mg DAILY PO Last administered on 10/21/16 08:13; Admin Dose 1 MG; Start 10/20/16 at 13:30 Ferric Sodium Gluconate Complex/ Sodium Chloride (Ferrlecit/NS) 110 ml @ 100 mls/hr Q24H IVPB Last administered on 10/21/16 16:59; Admin Dose 100 MLS/HR; Start 10/20/16 at 16:00; Stop 10/22/16 at 17:05 Acetylcysteine (Nac) 1,200 mg BID PO Last administered on 10/21/16 20:55; Admin Dose 1,200 MG; Start 10/20/16 at 13:30; Stop 10/23/16 at 13:29 Epoetin Al (Epogen (Neserd)) 6,000 units MoWeFr@17 SC ; Start 10/22/16 at 17: 00; Stop 10/27/16 at 16:59 Collagenase (Santyl) 1 applic DAILY TOP Last administered on 10/21/16 17:31; Admin Dose 1 APPLIC; Start 10/21/16 at 16:00 Collagenase (Santyl) 1 applic PRN PRN TOP WOUND CARE; Start 10/21/16 at 15:00 MOHAN KANG MD Oct 22, 2016 08:09
[2016-10-22] MEDS: INSULIN ASPART [NOVOLOG] 3 ML PEN SC SCH ×7 (08:17→21:00)
[2016-10-22] MEDS: COLLAGENASE 30 GM TUBE TOP SCH ×2 (09:00→09:59)
[2016-10-22] MEDS: LINAGLIPTIN 5 MG TABLET PO SCH (09:57)
[2016-10-22] MEDS: FOLIC ACID 1 MG TAB PO SCH (09:57)
[2016-10-22] MEDS: FAMOTIDINE 20 MG TAB PO SCH (09:57)
[2016-10-22] MEDS: ACETYLCYSTEINE 600 MG CAP PO SCH ×2 (09:57→21:17)
[2016-10-22] MEDS: ALLOPURINOL 100 MG TAB PO SCH (09:57)
[2016-10-22] MEDS: HYDROCODONE/APAP (5/325) TAB PO PRN ×2 (12:18→21:28)
[2016-10-22 14:00] VITALS: RESP 18
--- NOTE | 2016-10-22 14:54 | RADRPT ---
PROCEDURE: US bilateral lower extremity arteries. CLINICAL INDICATION: Bilateral leg pain. Claudication that interferes significantly with the jake ent's lifestyle. Lower extremity ulcer. TECHNIQUE: Multiple longitudinal and transverse images of the bilateral lower extremity arteries w ere obtained with dang scale, pulsed Doppler, and color Doppler imaging. COMPARISON: No prior studies are available for comparison. FINDINGS: Right STRAP MACHINE OPERATOR:68 cm/sec PSFA:80 cm/sec MSFA:85 cm/sec DSFA:77 cm/sec POP:79 cm/sec INVASIVE CARDIOLOGIST:51 cm/sec DPA:85 cm/sec Left STRAP MACHINE OPERATOR:45 cm/sec PSFA:54 cm/sec MSFA:95 cm/sec DSFA:72 cm/sec POP:64 cm/sec INVASIVE CARDIOLOGIST:71 cm/sec DPA:34 cm/sec The right ankle-brachial index is unobtainable due to calcification and the left ankle-brachial inde x is 0.9. There is normal triphasic flow throughout bilaterally. There is no significant stenosis or occlusio n. Mild plaque is present in the femoral and popliteal systems. IMPRESSION: 1. Mild plaque formation without evidence for hemodynamically significant stenosis or occlusion. RPTAT: QQ .Moses Monk MD, MD Date Time Electronically viewed and signed by .Moses Monk MD, on 10/22/2016 14:54 .R/
[2016-10-22] MEDS: SOD FERRIC GLUC COMPLX 125 MG in SOD CHLORIDE 0.9% 100 ML IVPB SCH (17:25)
[2016-10-22] MEDS: EPOETIN ALFA (NESRD) 3,000 UNITS/ML VIAL SC SCH (17:31)
--- NOTE | 2016-10-22 19:41 | PN ---
Date/Time of Note Date/Time of Note DATE: 10/22/16 TIME: 19:31 Assessment/Plan VTE Prophylaxis VTE Prophylaxis Intervention: contraindicated Lines/Catheters IV [facility] Type ([facility] Peripheral IV Urinary Cath still in place: Yes Reason Cath still needed: other (indicate) Assessment/Plan Chief Complaint/Hosp Course Right renal subcapsular hematoma status post right extracorporeal shockwave lithotripsy on September 24, 2016. Serum creatinine did go up to 4.59 and then has come down to 3.1 today His left kidney is smaller than the right kidney, the right renal subcapsular hematoma will gradually subside and renal function will gradually continue to improve. At the present time there is no need for any surgical intervention. Problems: Assessment/Plan Continue present treatment Subjective 24 Hr Interval Summary Free Text/Dictation Patient states that he is feeling better Constitutional: no complaints, No chills, No febrile Eyes: no complaints ENT: no complaints Respiratory: no complaints Cardiovascular: no complaints Gastrointestinal: no complaints, pain, No nausea, No vomiting Genitourinary: No bleeding, No flank pain, No hematuria Musculoskeletal: No back pain Skin: no complaints Neurologic: no complaints, No confusion Endocrine: no complaints Lymphatic: no complaints Psychological: no complaints Immunologic: no complaints Exam/Review of Systems Vital Signs Vitals Vital Signs Date Time Temp Pulse Resp B/P Pulse Ox O2 Delivery O2 Flow Rate FiO2 10/22/16 14:00 97.8 62 18 97 10/19/16 14:30 Room Air Intake and Output 10/21/16 10/21/16 10/22/16 15:00 23:00 07:00 Intake Total 1200 ml 990 ml Output Total 650 ml 900 ml Balance 550 ml 90 ml Exam Constitutional: alert, oriented Psych: no complaints, No confusion Head: normocephalic Eyes: nl conjunctiva ENMT: nl external ears & nose Neck: supple Respiratory: normal air movement Cardiovascular: nl pulses, regular rate and rhythm Gastrointestinal: non-tender, soft Musculoskeletal: No joint tenderness Skin: nl turgor Results Result Diagram: 10/22/16 0515 10/22/16 0515 Results 24 hrs Laboratory Tests Test 10/21/16 20:52 10/22/16 05:15 10/22/16 08:15 10/22/16 10:05 Bedside Glucose 134 148 169 White Blood Count 6.5 Red Blood Count 2.30 L Hemoglobin 7.7 L Hematocrit 24.8 L Mean Corpuscular Volume 107.8 H Mean Corpuscular Hemoglobin 33.5 H Mean Corpuscular Hemoglobin Concent 31.0 L Red Cell Distribution Width 17.5 H Platelet Count 153 Mean Platelet Volume 9.9 Neutrophils % 63.1 Lymphocytes % 17.5 Monocytes % 15.0 H Eosinophils % 3.5 Basophils % 0.3 Nucleated Red Blood Cells % 0.0 Neutrophils # 4.1 Lymphocytes # 1.1 Monocytes # 1.0 H Eosinophils # 0.2 Basophils # 0.0 Nucleated Red Blood Cells # 0.0 Sodium Level 136 Potassium Level 5.0 Chloride Level 102 Carbon Dioxide Level 22 Anion Gap 17 H Blood Urea Nitrogen 42 H Creatinine 2.66 H Glucose Level 149 Calcium Level 8.4 Total Bilirubin 0.3 Direct Bilirubin 0.00 Indirect Bilirubin 0.3 Aspartate Amino Transf (AST/SGOT) 60 H Alanine Aminotransferase (ALT/SGPT) 33 Alkaline Phosphatase 110 Total Protein 5.5 L Albumin 2.6 L Globulin 2.90 Albumin/Globulin Ratio 0.89 Test 10/22/16 12:14 10/22/16 14:51 10/22/16 17:29 Bedside Glucose 132 222 H 183 Medications Medications Current Medications Docusate Sodium (Colace) 100 mg Q12H PRN PO CONSTIPATION; Start 10/19/16 at 11: 00 Zolpidem Tartrate (Ambien) 5 mg QHS PRN PO SLEEP; Start 10/19/16 at 11:00 Famotidine (Pepcid) 20 mg DAILY PO Last administered on 10/22/16 09:57; Admin Dose 20 MG; Start 10/19/16 at 11:00 Heparin Sodium (Porcine) 5000 unit 5,000 unit Q8 SC Last administered on 14:46; Admin Dose 5,000 UNIT; Start 10/19/16 at 14:00 Sodium Chloride (1/2 NS) 1,000 ml @ 50 mls/hr Q20H IV Last administered on 21:44; Admin Dose 50 MLS/HR; Start 10/19/16 at 14:00 Levothyroxine Sodium (Synthroid) 112 mcg DAILY@06 PO Last administered on 05:32; Admin Dose 112 MCG; Start 10/20/16 at 06:00 Metoprolol Succinate (Toprol Xl) 100 mg QHS PO Last administered on 10/21/16 20:55; Admin Dose 100 MG; Start 10/19/16 at 21:00 Allopurinol (Zyloprim) 100 mg QAM PO Last administered on 10/22/16 09:57; Admin Dose 100 MG; Start 10/20/16 at 09:00 Atorvastatin Calcium (Lipitor) 80 mg QHS PO Last administered on 10/21/16 20: 55; Admin Dose 80 MG; Start 10/19/16 at 21:00 Linagliptin (Tradjenta) 5 mg DAILY PO Last administered on 10/22/16 09:57; Admin Dose 5 MG; Start 10/20/16 at 09:00 Insulin Glargine (Lantus) 6 unit DAILY@20 SC Last administered on 10/21/16 20: 56; Admin Dose 6 UNIT; Start 10/19/16 at 20:00 Diagnostic Test (Pha) (Accu-Chek) 1 ea 02 XX Last administered on 10/20/16 02: 24; Admin Dose 1 EA; Start 10/20/16 at 02:00 Miscellaneous Information 1 ea NOTE XX ; Start 10/19/16 at 15:00 Glucose (Glutose) 15 gm Q15M PRN PO DECREASED GLUCOSE; Start 10/19/16 at 15:00 Glucose (Glutose) 22.5 gm Q15M PRN PO DECREASED GLUCOSE; Start 10/19/16 at 15: 00 Dextrose (D50w Syringe) 25 ml Q15M PRN IV DECREASED GLUCOSE; Start 10/19/16 at 15:00 Dextrose (D50w Syringe) 50 ml Q15M PRN IV DECREASED GLUCOSE; Start 10/19/16 at 15:00 Glucagon (Glucagen) 1 mg Q15M PRN IM DECREASED GLUCOSE; Start 10/19/16 at 15:00 Glucose 15 gm 15 gm Q15M PRN BUCCAL DECREASED GLUCOSE; Start 10/19/16 at 15:00 Cefazolin Sodium (Ancef 1 Gm/50 ml (Pmx)) 50 ml @ 100 mls/hr Q12H IVPB Last administered on 10/22/16 17:26; Admin Dose 100 MLS/HR; Start 10/19/16 at 17:00 Acetaminophen/ Hydrocodone Bitart ([place] (5/325)) 1 tab Q6H PRN PO PAIN Last administered on 10/20/16 21:45; Admin Dose 1 TAB; Start 10/19/16 at 17:30 Acetaminophen/ Hydrocodone Bitart ([place] (5/325)) 2 tab Q6H PRN PO PAIN Last administered on 10/22/16 12:18; Admin Dose 2 TAB; Start 10/19/16 at 17:30 Folic Acid (Folic Acid) 1 mg DAILY PO Last administered on 10/22/16 09:57; Admin Dose 1 MG; Start 10/20/16 at 13:30 Acetylcysteine (Nac) 1,200 mg BID PO Last administered on 10/22/16 09:57; Admin Dose 1,200 MG; Start 10/20/16 at 13:30; Stop 10/23/16 at 13:29 Epoetin Al (Epogen (Neserd)) 6,000 units MoWeFr@17 SC Last administered on 17:31; Admin Dose 6,000 UNITS; Start 10/22/16 at 17:00; Stop 10/27/16 at 16:59 Collagenase (Santyl) 1 applic DAILY TOP Last administered on 10/21/16 17:31; Admin Dose 1 APPLIC; Start 10/21/16 at 16:00 Collagenase (Santyl) 1 applic PRN PRN TOP WOUND CARE; Start 10/21/16 at 15:00 TINO ALLISON MD Oct 22, 2016 19:41
--- NOTE | 2016-10-22 19:45 | PN ---
Date/Time of Note Date/Time of Note DATE: 10/22/16 TIME: 19:42 Assessment/Plan VTE Prophylaxis VTE Prophylaxis Intervention: heparin Lines/Catheters [facility] Type (from [facility] Peripheral IV Urinary Cath still in place: Yes Reason Cath still needed: urinary retention Assessment/Plan Problems: (1) Acute renal failure Status: Acute Comment: He is improving. Will need to call continue to follow along although expect he will do relatively well. Possible discharge in 48 hours Qualifiers: Acute renal failure type: with acute tubular necrosis Qualified Code: N17.0 - Acute renal failure with tubular necrosis (2) Peripheral edema Status: Acute Comment: Noted. Continue to work with diuretic therapy. Awaiting consultation notes to hit the chart from vascular surgery (3) Renal hematoma Status: Acute Comment: Slow resolution. No anticoagulation you Qualifiers: Encounter type: initial encounter Laterality: unspecified laterality Qualified Code: S37.019A - Renal hematoma, unspecified laterality, initial encounter (4) Bilateral lower leg cellulitis Status: Acute Comment: He is improving with IV antibiotic therapy. (5) Essential hypertension Status: Chronic Comment: Good control. Consider resuming PARADISE inhibitor in the next 48 hours (6) Hyperlipidemia Status: Chronic Comment: Adequate control Qualifiers: Hyperlipidemia type: pure hypercholesterolemia Qualified Code: E78.00 - Pure hypercholesterolemia (7) Hyperuricemia Status: Chronic Comment: Adequate control on current medication regimen (8) Hypothyroidism (acquired) Status: Chronic Comment: Stable on replacement therapy continue this (9) Chronic atrial fibrillation Status: Chronic Comment: Anticoagulation to resume one were more comfortable with a renal hematoma (10) Diabetes mellitus type 2, noninsulin dependent Status: Chronic Comment: He has blood sugar control under the present regimen Subjective 24 Hr Interval Summary Free Text/Dictation Charming and pleasant agreeable male lying in bed. He denies any complaints Constitutional: no complaints Respiratory: no complaints Cardiovascular: no complaints Gastrointestinal: no complaints Genitourinary: no complaints Exam/Review of Systems Vital Signs Vitals Vital Signs Date Time Temp Pulse Resp B/P Pulse Ox O2 Delivery O2 Flow Rate FiO2 10/22/16 14:00 97.8 62 18 97 10/19/16 14:30 Room Air Intake and Output 10/21/16 10/21/16 10/22/16 15:00 23:00 07:00 Intake Total 1200 ml 990 ml Output Total 650 ml 900 ml Balance 550 ml 90 ml Exam Constitutional: alert, oriented Respiratory: clear to auscultation, normal air movement Cardiovascular: nl pulses, regular rate and rhythm Extremities: other (Still with significant erythema right greater than left) Results Result Diagram: 10/22/1615 10/22/1615 Results 24 hrs Laboratory Tests Test 10/21/16 20:52 10/22/16 05:15 10/22/16 08:15 10/22/16 10:05 Bedside Glucose 134 148 169 White Blood Count 6.5 Red Blood Count 2.30 L Hemoglobin 7.7 L Hematocrit 24.8 L Mean Corpuscular Volume 107.8 H Mean Corpuscular Hemoglobin 33.5 H Mean Corpuscular Hemoglobin Concent 31.0 L Red Cell Distribution Width 17.5 H Platelet Count 153 Mean Platelet Volume 9.9 Neutrophils % 63.1 Lymphocytes % 17.5 Monocytes % 15.0 H Eosinophils % 3.5 Basophils % 0.3 Nucleated Red Blood Cells % 0.0 Neutrophils # 4.1 Lymphocytes # 1.1 Monocytes # 1.0 H Eosinophils # 0.2 Basophils # 0.0 Nucleated Red Blood Cells # 0.0 Sodium Level 136 Potassium Level 5.0 Chloride Level 102 Carbon Dioxide Level 22 Anion Gap 17 H Blood Urea Nitrogen 42 H Creatinine 2.66 H Glucose Level 149 Calcium Level 8.4 Total Bilirubin 0.3 Direct Bilirubin 0.00 Indirect Bilirubin 0.3 Aspartate Amino Transf (AST/SGOT) 60 H Alanine Aminotransferase (ALT/SGPT) 33 Alkaline Phosphatase 110 Total Protein 5.5 L Albumin 2.6 L Globulin 2.90 Albumin/Globulin Ratio 0.89 Test 10/22/16 12:14 10/22/16 14:51 10/22/16 17:29 Bedside Glucose 132 222 H 183 Medications Medications Current Medications Docusate Sodium (Colace) 100 mg Q12H PRN PO CONSTIPATION; Start 10/19/16 at 11: 00 Zolpidem Tartrate (Ambien) 5 mg QHS PRN PO SLEEP; Start 10/19/16 at 11:00 Famotidine (Pepcid) 20 mg DAILY PO Last administered on 10/22/16 09:57; Admin Dose 20 MG; Start 10/19/16 at 11:00 Heparin Sodium (Porcine) 5000 unit 5,000 unit Q8 SC Last administered on 14:46; Admin Dose 5,000 UNIT; Start 10/19/16 at 14:00 Sodium Chloride (1/2 NS) 1,000 ml @ 50 mls/hr Q20H IV Last administered on 21:44; Admin Dose 50 MLS/HR; Start 10/19/16 at 14:00 Levothyroxine Sodium (Synthroid) 112 mcg DAILY@06 PO Last administered on 05:32; Admin Dose 112 MCG; Start 10/20/16 at 06:00 Metoprolol Succinate (Toprol Xl) 100 mg QHS PO Last administered on 10/21/16 20:55; Admin Dose 100 MG; Start 10/19/16 at 21:00 Allopurinol (Zyloprim) 100 mg QAM PO Last administered on 10/22/16 09:57; Admin Dose 100 MG; Start 10/20/16 at 09:00 Atorvastatin Calcium (Lipitor) 80 mg QHS PO Last administered on 10/21/16 20: 55; Admin Dose 80 MG; Start 10/19/16 at 21:00 Linagliptin (Tradjenta) 5 mg DAILY PO Last administered on 10/22/16 09:57; Admin Dose 5 MG; Start 10/20/16 at 09:00 Insulin Glargine (Lantus) 6 unit DAILY@20 SC Last administered on 10/21/16 20: 56; Admin Dose 6 UNIT; Start 10/19/16 at 20:00 Diagnostic Test (Pha) (Accu-Chek) 1 ea 02 XX Last administered on 10/20/16 02: 24; Admin Dose 1 EA; Start 10/20/16 at 02:00 Miscellaneous Information 1 ea NOTE XX ; Start 10/19/16 at 15:00 Glucose (Glutose) 15 gm Q15M PRN PO DECREASED GLUCOSE; Start 10/19/16 at 15:00 Glucose (Glutose) 22.5 gm Q15M PRN PO DECREASED GLUCOSE; Start 10/19/16 at 15: 00 Dextrose (D50w Syringe) 25 ml Q15M PRN IV DECREASED GLUCOSE; Start 10/19/16 at 15:00 Dextrose (D50w Syringe) 50 ml Q15M PRN IV DECREASED GLUCOSE; Start 10/19/16 at 15:00 Glucagon (Glucagen) 1 mg Q15M PRN IM DECREASED GLUCOSE; Start 10/19/16 at 15:00 Glucose 15 gm 15 gm Q15M PRN BUCCAL DECREASED GLUCOSE; Start 10/19/16 at 15:00 Cefazolin Sodium (Ancef 1 Gm/50 ml (Pmx)) 50 ml @ 100 mls/hr Q12H IVPB Last administered on 10/22/16 17:26; Admin Dose 100 MLS/HR; Start 10/19/16 at 17:00 Acetaminophen/ Hydrocodone Bitart ([place] (5/325)) 1 tab Q6H PRN PO PAIN Last administered on 10/20/16 21:45; Admin Dose 1 TAB; Start 10/19/16 at 17:30 Acetaminophen/ Hydrocodone Bitart ([place] (5/325)) 2 tab Q6H PRN PO PAIN Last administered on 10/22/16 12:18; Admin Dose 2 TAB; Start 10/19/16 at 17:30 Folic Acid (Folic Acid) 1 mg DAILY PO Last administered on 10/22/16 09:57; Admin Dose 1 MG; Start 10/20/16 at 13:30 Acetylcysteine (Nac) 1,200 mg BID PO Last administered on 10/22/16 09:57; Admin Dose 1,200 MG; Start 10/20/16 at 13:30; Stop 10/23/16 at 13:29 Epoetin Al (Epogen (Neserd)) 6,000 units MoWeFr@17 SC Last administered on 17:31; Admin Dose 6,000 UNITS; Start 10/22/16 at 17:00; Stop 10/27/16 at 16:59 Collagenase (Santyl) 1 applic DAILY TOP Last administered on 10/21/16 17:31; Admin Dose 1 APPLIC; Start 10/21/16 at 16:00 Collagenase (Santyl) 1 applic PRN PRN TOP WOUND CARE; Start 10/21/16 at 15:00 KASSIDY DIAMOND MD Oct 22, 2016 19:45
[2016-10-22 20:01] VITALS: BP_SYST 117; BP_SYST 133; BP_DIAS 65; BP_DIAS 90; RESP 17; RESP 19
[2016-10-22] MEDS: INSULIN GLARGINE [LANtus] 3 ML PEN SC SCH (20:11)
[2016-10-22] MEDS: ATORVASTATIN 80 MG TAB PO SCH (21:17)
[2016-10-22] MEDS: METOPROLOL (XL) 100 MG TAB PO SCH (21:19)
[2016-10-23 02:00] VITALS: BP 115/58; RESP 19
[2016-10-23] MEDS: ACCU-CHEK XX SCH (02:00)
[2016-10-23] MEDS: CEFAZOLIN 1 GM/50 ML (PMX) 50 ML IVPB SCH ×2 (05:02→17:31)
--- NOTE | 2016-10-23 05:34 | CONS ---
DATE OF ADMISSION: 10/19/2016 DATE OF CONSULTATION: 10/21/2016 Dear doctors: Mr. Bro is a 76-year-old gentleman who presented to [facility] with longstanding history of bilateral lower extremity venous insufficiency and venous stasis ulcers in which he has recurrent lower extremity cellulitis. Patient mentions that over the past 8 months, his bilateral lower extremities have gotten worse, with the right having a bigger ulcer than the left. He does not necessarily see any vascular surgeon or go to a wound care center. He mainly has been managing his wounds on his own. He does mention that his left lower extremity does have a greater amount of swelling compared to the right. Otherwise, he denies shortness of breath, chest pain, nausea, vomiting, fever, chills. He denies lower extremity rest pain. He does have some claudication, which may be contributed to his venous stasis ulcers and discomfort. The patient does mention that he has had history of discomfort with prolonged standing. He does have itching and aches that come and go. REVIEW OF SYSTEMS: Fourteen point review performed, negative except what is mentioned in the HPI. PAST MEDICAL HISTORY: Entails bilateral lower extremity venous insufficiency and venous stasis ulcers, chronic kidney disease stage II, Graves disease, hypothyroidism, renal stones, hyperuricemia, hyperlipidemia, hypertension, coronary artery disease, chronic atrial fibrillation, diabetes type 2. PAST SURGICAL HISTORY: Right inguinal repair 2014, appendectomy, tonsillectomy, and excision of skin cancer. Also, status post ESWL. FAMILY HISTORY: Positive for coronary artery disease, hypertension and diabetes. SOCIAL HISTORY: He denies tobacco, alcohol, or illicit drug use. PHYSICAL EXAMINATION: GENERAL APPEARANCE: Alert, oriented x3. No apparent distress. HEENT: Normocephalic, atraumatic. PERRLA. EOMI. Mucosa moist. NECK: Supple. No carotid bruit. LUNGS: Clear to auscultation bilaterally. No crackles. CARDIOVASCULAR: S1, S2 present. No murmurs. ABDOMEN: Soft, nontender, nondistended. Bowel sounds positive. Truncal obesity. EXTREMITIES: Right lower extremity: Palpable femoral pulse. Unable to palpate pedal pulse secondary to edema. Motor and sensory intact. Capillary refill 3 seconds. There is a essentially anteromedial and anterolateral ulcer above the ankle crease that has some granulation tissue at its base with surrounding cellulitis that extends up to the upper calf. Presence of lipodermatosclerosis. Presence of varicose veins. Left lower extremity: Palpable femoral pulse, unable to palpate the pedal pulse secondary to edema. Motor and sensory intact. Capillary refill 3 seconds. Presence of an anteromedial montoya ulcer above the ankle grief. ASSESSMENT AND PLAN:: 1. Bilateral lower extremity atherosclerosis: The patient may have a infrainguinal disease as were we were unable to palpate the pedal pulses. At the moment, does not seem to be of any significance with any flow-limiting stenosis. We will continue to monitor his vascular surveillance from that aspect. 2. Bilateral lower extremity venous insufficiency and venous stasis ulcers (CEAP classification 6): It seems the patient has had a longstanding history of venous stasis ulcers that he has been managing on his own. Unfortunately, the patient has not received any compression therapy or denies any venous ablation. I have recommended for the patient once he has undergone duplex arterial studies, to start with a two-layer compression dressing to be applied. This will slowly transition to three-layer compression dressings. Further wounds would recommend applying collagen-based dressings with silver alginate, Melgisorb silver. Optimize vascular: (blood pressure meds, diet, nutrition, exercise, sugar control, antiplatelets). We will schedule the patient for a venous reflux study once he has been discharged as this study is only done in outpatient setting. Discussed findings and plan of management with the patient and he understands. Thank you for allowing us to partake in the care of your patient. Please call with any questions. Dictated By: Gómez Sinha MD /brice/maria dolores /Document#: [id number]
[2016-10-23 05:50] LABS: ADD SCAN DIFF NO
[2016-10-23 05:54] LABS: BASOPHILS % 0.2 % (0.0-2.0); EOSINOPHILS # 0.3 10^3/ul (0.0-0.5); EOSINOPHILS % 4.4 % (0.0-7.0); HEMATOCRIT 23.7 % (42.0-52.0); HEMOGLOBIN 7.5 g/dl (14.0-18.0); LYMPHOCYTES # 1.4 10^3/ul (0.8-2.9); LYMPHOCYTES % 24.4 % (15.0-51.0); MEAN CORPUSCULAR HEMOGLOBIN 34.7 pg (29.0-33.0); MEAN CORPUSCULAR HGB CONC 31.6 g/dl (32.0-37.0); MEAN CORPUSCULAR VOLUME 109.7 fl (82.0-101.0); MEAN PLATELET VOLUME 9.8 fl (7.4-10.4); MONOCYTES % 17.1 % (0.0-11.0); NEUTROPHILS % 53.2 % (39.0-77.0); PLATELET COUNT 146 10^3/UL (140-415); RED BLOOD COUNT 2.16 10^6/ul (4.70-6.10); RED CELL DISTRIBUTION WIDTH 17.5 % (11.5-14.5); WHITE BLOOD COUNT 5.7 10^3/ul (4.8-10.8)
[2016-10-23] MEDS: LEVOTHYROXINE 112 MCG TAB PO SCH (06:06)
[2016-10-23] MEDS: HEPARIN 5,000 UNIT/0.5 ML VIAL SC SCH ×3 (06:07→21:17)
[2016-10-23 06:49] LABS: CALCIUM 8.3 mg/dl (8.4-10.2); CREATININE 2.33 mg/dl (0.61-1.24); POTASSIUM 4.8 mmol/L (3.5-5.1)
[2016-10-23] MEDS: INSULIN ASPART [NOVOLOG] 3 ML PEN SC SCH ×7 (07:30→21:00)
[2016-10-23] MEDS: FOLIC ACID 1 MG TAB PO SCH (08:08)
[2016-10-23] MEDS: FAMOTIDINE 20 MG TAB PO SCH (08:08)
[2016-10-23] MEDS: ALLOPURINOL 100 MG TAB PO SCH (08:08)
[2016-10-23] MEDS: ACETYLCYSTEINE 600 MG CAP PO SCH (08:08)
[2016-10-23] MEDS: LINAGLIPTIN 5 MG TABLET PO SCH (08:08)
[2016-10-23 08:46] VITALS: BP 125/65; RESP 20
[2016-10-23] MEDS ORDERED: LACTATED RINGER'S 250 ML IV ONE (09:00)
[2016-10-23] MEDS: COLLAGENASE 30 GM TUBE TOP SCH (12:46)
--- NOTE | 2016-10-23 14:12 | PN ---
Date/Time of Note Date/Time of Note DATE: 10/23/16 TIME: 14:08 Assessment/Plan VTE Prophylaxis VTE Prophylaxis Intervention: contraindicated Lines/Catheters IV C[facility] Type (from [facility] Peripheral IV Urinary Cath still in place: Yes Reason Cath still needed: urinary retention Assessment/Plan Problems: (1) Chronic kidney disease, stage II (mild) Status: Chronic Comment: This is noted. Please note that his serum creatinine is returning to baseline please see below (2) Chronic atrial fibrillation Status: Chronic Comment: Resume anticoagulation within the next 10 days (3) Acute kidney injury Status: Acute Comment: He is slowly and steadily improving. It appears there may be a bit of a prerenal component to this. Given gentle fluid bolus 1 time with LR and follow him up. (4) Venous insufficiency of right leg Status: Chronic Comment: Noted. Please see the consultation from vascular surgery. The arterial flow studies are good news (5) Venous insufficiency of left lower extremity Status: Chronic Comment: Noted and as above (6) Hypothyroidism (acquired) Status: Chronic Comment: Stable and adequately replaced (7) Essential hypertension Status: Chronic Comment: Continue current treatment resume PARADISE inhibitor in the next week (8) Hyperlipidemia Status: Chronic Comment: Stable and treat without medication complication Qualifiers: Hyperlipidemia type: pure hypercholesterolemia Qualified Code: E78.00 - Pure hypercholesterolemia (9) Hyperuricemia Status: Chronic Comment: Adequate Subjective 24 Hr Interval Summary Free Text/Dictation patient reports that ruext edema, otherwise well Constitutional: no complaints Respiratory: no complaints Cardiovascular: no complaints Exam/Review of Systems Vital Signs Vitals Vital Signs Date Time Temp Pulse Resp B/P Pulse Ox O2 Delivery O2 Flow Rate FiO2 10/23/16 08:46 97.6 71 20 125/65 98 10/19/16 14:30 Room Air Intake and Output 10/22/16 10/22/16 10/23/16 15:00 23:00 07:00 Intake Total 1475 ml Output Total 1000 ml Balance 475 ml Exam Constitutional: alert, oriented Neck: non-tender, supple Respiratory: clear to auscultation, normal air movement Cardiovascular: nl pulses, regular rate and rhythm Extremities: other (Lower extremities are modestly improved. Please note there is actually some edema of the right upper extremity) Results Result Diagram: 10/23/16 0458 10/23/16 0458 Results 24 hrs Laboratory Tests Test 10/22/16 14:51 10/22/16 17:29 10/22/16 20:08 10/22/16 21:22 Bedside Glucose 222 H 183 204 157 Test 10/23/16 04:58 10/23/16 07:44 10/23/16 12:36 White Blood Count 5.7 Red Blood Count 2.16 L Hemoglobin 7.5 L Hematocrit 23.7 L Mean Corpuscular Volume 109.7 H Mean Corpuscular Hemoglobin 34.7 H Mean Corpuscular Hemoglobin Concent 31.6 L Red Cell Distribution Width 17.5 H Platelet Count 146 Mean Platelet Volume 9.8 Neutrophils % 53.2 Lymphocytes % 24.4 Monocytes % 17.1 H Eosinophils % 4.4 Basophils % 0.2 Nucleated Red Blood Cells % 0.0 Neutrophils # 3.0 Lymphocytes # 1.4 Monocytes # 1.0 H Eosinophils # 0.3 Basophils # 0.0 Nucleated Red Blood Cells # 0.0 Sodium Level 137 Potassium Level 4.8 Chloride Level 103 Carbon Dioxide Level 23 Anion Gap 16 Blood Urea Nitrogen 35 H Creatinine 2.33 H Glucose Level 86 # Calcium Level 8.3 L Bedside Glucose 101 138 Medications Medications Current Medications Docusate Sodium (Colace) 100 mg Q12H PRN PO CONSTIPATION; Start 10/19/16 at 11: 00 Zolpidem Tartrate (Ambien) 5 mg QHS PRN PO SLEEP; Start 10/19/16 at 11:00 Famotidine (Pepcid) 20 mg DAILY PO Last administered on 10/23/16 08:08; Admin Dose 20 MG; Start 10/19/16 at 11:00 Heparin Sodium (Porcine) 5000 unit 5,000 unit Q8 SC Last administered on 14:02; Admin Dose 5,000 UNIT; Start 10/19/16 at 14:00 Sodium Chloride (1/2 NS) 1,000 ml @ 50 mls/hr Q20H IV Last administered on 19:41; Admin Dose 50 MLS/HR; Start 10/19/16 at 14:00 Levothyroxine Sodium (Synthroid) 112 mcg DAILY@06 PO Last administered on 06:06; Admin Dose 112 MCG; Start 10/20/16 at 06:00 Metoprolol Succinate (Toprol Xl) 100 mg QHS PO Last administered on 10/22/16 21:19; Admin Dose 100 MG; Start 10/19/16 at 21:00 Allopurinol (Zyloprim) 100 mg QAM PO Last administered on 10/23/16 08:08; Admin Dose 100 MG; Start 10/20/16 at 09:00 Atorvastatin Calcium (Lipitor) 80 mg QHS PO Last administered on 10/22/16 21: 17; Admin Dose 80 MG; Start 10/19/16 at 21:00 Linagliptin (Tradjenta) 5 mg DAILY PO Last administered on 10/23/16 08:08; Admin Dose 5 MG; Start 10/20/16 at 09:00 Insulin Glargine (Lantus) 6 unit DAILY@20 SC Last administered on 10/22/16 20: 11; Admin Dose 6 UNIT; Start 10/19/16 at 20:00 Diagnostic Test (Pha) (Accu-Chek) 1 ea 02 XX Last administered on 10/20/16 02: 24; Admin Dose 1 EA; Start 10/20/16 at 02:00 Miscellaneous Information 1 ea NOTE XX ; Start 10/19/16 at 15:00 Glucose (Glutose) 15 gm Q15M PRN PO DECREASED GLUCOSE; Start 10/19/16 at 15:00 Glucose (Glutose) 22.5 gm Q15M PRN PO DECREASED GLUCOSE; Start 10/19/16 at 15: 00 Dextrose (D50w Syringe) 25 ml Q15M PRN IV DECREASED GLUCOSE; Start 10/19/16 at 15:00 Dextrose (D50w Syringe) 50 ml Q15M PRN IV DECREASED GLUCOSE; Start 10/19/16 at 15:00 Glucagon (Glucagen) 1 mg Q15M PRN IM DECREASED GLUCOSE; Start 10/19/16 at 15:00 Glucose 15 gm 15 gm Q15M PRN BUCCAL DECREASED GLUCOSE; Start 10/19/16 at 15:00 Cefazolin Sodium (Ancef 1 Gm/50 ml (Pmx)) 50 ml @ 100 mls/hr Q12H IVPB Last administered on 10/23/16 05:02; Admin Dose 100 MLS/HR; Start 10/19/16 at 17:00 Acetaminophen/ Hydrocodone Bitart ([place] (5/325)) 1 tab Q6H PRN PO PAIN Last administered on 10/20/16 21:45; Admin Dose 1 TAB; Start 10/19/16 at 17:30 Acetaminophen/ Hydrocodone Bitart ([place] (5/325)) 2 tab Q6H PRN PO PAIN Last administered on 10/22/16 21:28; Admin Dose 2 TAB; Start 10/19/16 at 17:30 Folic Acid (Folic Acid) 1 mg DAILY PO Last administered on 10/23/16 08:08; Admin Dose 1 MG; Start 10/20/16 at 13:30 Epoetin Al (Epogen (Neserd)) 6,000 units MoWeFr@17 SC Last administered on 17:31; Admin Dose 6,000 UNITS; Start 10/22/16 at 17:00; Stop 10/27/16 at 16:59 Collagenase (Santyl) 1 applic DAILY TOP Last administered on 10/23/16 12:46; Admin Dose 1 APPLIC; Start 10/21/16 at 16:00 Collagenase (Santyl) 1 applic PRN PRN TOP WOUND CARE; Start 10/21/16 at 15:00 KASSIDY DIAMOND MD Oct 23, 2016 14:12
[2016-10-23 14:44] VITALS: BP 118/70; RESP 20
[2016-10-23] MEDS ORDERED: ONDANSETRON 4 MG TAB PO PRN (16:16)
[2016-10-23] MEDS: PANTOPRAZOLE (EC) 40 MG TAB PO SCH (17:31)
[2016-10-23] MEDS: SOD CHLORIDE 0.45% 1,000 ML IV SCH (17:36)
--- NOTE | 2016-10-23 19:50 | PN ---
Date/Time of Note Date/Time of Note DATE: 10/23/16 TIME: 19:42 Assessment/Plan VTE Prophylaxis VTE Prophylaxis Intervention: contraindicated Lines/Catheters IV C[facility] Type (from [facility] Peripheral IV Urinary Cath still in place: Yes Reason Cath still needed: other (indicate) (Monitor his urine output and diuresis) Assessment/Plan Chief Complaint/Hosp Course Right renal subcapsular hematoma status post right extracorporeal shockwave lithotripsy on September 24, 2016. Serum creatinine did go up to 4.59 and then has come down to 2.33 today His left kidney is smaller than the right kidney, the right renal subcapsular hematoma will gradually subside and renal function will gradually continue to improve. At the present time there is no need for any surgical intervention. We will keep the scrotum elevated on a towel all the time because of the scrotal swelling. Will discontinue the Daniels catheter tomorrow morning and see if he is able to urinate on his own Problems: Subjective 24 Hr Interval Summary Subjective hx not possible: other (Patient states he is feeling better) Constitutional: no complaints Eyes: no complaints ENT: no complaints Respiratory: no complaints, No cough, No shortness of breath Cardiovascular: no complaints Gastrointestinal: No nausea, No vomiting Genitourinary: no complaints, No hematuria Musculoskeletal: no complaints Skin: other (Cellulitis of the lower extremities) Neurologic: no complaints Endocrine: no complaints Lymphatic: no complaints Psychological: no complaints Exam/Review of Systems Vital Signs Vitals Vital Signs Date Time Temp Pulse Resp B/P Pulse Ox O2 Delivery O2 Flow Rate FiO2 10/23/16 14:44 97.8 85 20 118/70 98 10/19/16 14:30 Room Air Intake and Output 10/22/16 10/22/16 10/23/16 14:59 22:59 06:59 Intake Total 1475 ml Output Total 1000 ml Balance 475 ml Exam Constitutional: alert, oriented Psych: no complaints Head: normocephalic Eyes: nl conjunctiva ENMT: nl external ears & nose Neck: non-tender, supple Respiratory: normal air movement Gastrointestinal: soft Genitourinary - Male: other (Patient has penoscrotal edema and an indwelling Daniels catheter) Musculoskeletal: other Extremities: No calf tenderness Skin: other (Cellulitis of the lower extremities) Results Result Diagram: 10/23/16 0458 10/23/16 0458 Results 24 hrs Laboratory Tests Test 10/22/16 20:08 10/22/16 21:22 10/23/16 04:58 10/23/16 07:44 Bedside Glucose 204 157 101 White Blood Count 5.7 Red Blood Count 2.16 L Hemoglobin 7.5 L Hematocrit 23.7 L Mean Corpuscular Volume 109.7 H Mean Corpuscular Hemoglobin 34.7 H Mean Corpuscular Hemoglobin Concent 31.6 L Red Cell Distribution Width 17.5 H Platelet Count 146 Mean Platelet Volume 9.8 Neutrophils % 53.2 Lymphocytes % 24.4 Monocytes % 17.1 H Eosinophils % 4.4 Basophils % 0.2 Nucleated Red Blood Cells % 0.0 Neutrophils # 3.0 Lymphocytes # 1.4 Monocytes # 1.0 H Eosinophils # 0.3 Basophils # 0.0 Nucleated Red Blood Cells # 0.0 Sodium Level 137 Potassium Level 4.8 Chloride Level 103 Carbon Dioxide Level 23 Anion Gap 16 Blood Urea Nitrogen 35 H Creatinine 2.33 H Glucose Level 86 # Calcium Level 8.3 L Test 10/23/16 12:36 10/23/16 17:31 Bedside Glucose 138 109 Medications Medications Current Medications Docusate Sodium (Colace) 100 mg Q12H PRN PO CONSTIPATION; Start 10/19/16 at 11: 00 Zolpidem Tartrate (Ambien) 5 mg QHS PRN PO SLEEP; Start 10/19/16 at 11:00 Heparin Sodium (Porcine) 5000 unit 5,000 unit Q8 SC Last administered on 14:02; Admin Dose 5,000 UNIT; Start 10/19/16 at 14:00 Sodium Chloride (1/2 NS) 1,000 ml @ 50 mls/hr Q20H IV Last administered on 17:36; Admin Dose 50 MLS/HR; Start 10/19/16 at 14:00 Levothyroxine Sodium (Synthroid) 112 mcg DAILY@06 PO Last administered on 06:06; Admin Dose 112 MCG; Start 10/20/16 at 06:00 Metoprolol Succinate (Toprol Xl) 100 mg QHS PO Last administered on 10/22/16 21:19; Admin Dose 100 MG; Start 10/19/16 at 21:00 Allopurinol (Zyloprim) 100 mg QAM PO Last administered on 10/23/16 08:08; Admin Dose 100 MG; Start 10/20/16 at 09:00 Atorvastatin Calcium (Lipitor) 80 mg QHS PO Last administered on 10/22/16 21: 17; Admin Dose 80 MG; Start 10/19/16 at 21:00 Linagliptin (Tradjenta) 5 mg DAILY PO Last administered on 10/23/16 08:08; Admin Dose 5 MG; Start 10/20/16 at 09:00 Insulin Glargine (Lantus) 6 unit DAILY@20 SC Last administered on 10/22/16 20: 11; Admin Dose 6 UNIT; Start 10/19/16 at 20:00 Diagnostic Test (Pha) (Accu-Chek) 1 ea 02 XX Last administered on 10/20/16 02: 24; Admin Dose 1 EA; Start 10/20/16 at 02:00 Miscellaneous Information 1 ea NOTE XX ; Start 10/19/16 at 15:00 Glucose (Glutose) 15 gm Q15M PRN PO DECREASED GLUCOSE; Start 10/19/16 at 15:00 Glucose (Glutose) 22.5 gm Q15M PRN PO DECREASED GLUCOSE; Start 10/19/16 at 15: 00 Dextrose (D50w Syringe) 25 ml Q15M PRN IV DECREASED GLUCOSE; Start 10/19/16 at 15:00 Dextrose (D50w Syringe) 50 ml Q15M PRN IV DECREASED GLUCOSE; Start 10/19/16 at 15:00 Glucagon (Glucagen) 1 mg Q15M PRN IM DECREASED GLUCOSE; Start 10/19/16 at 15:00 Glucose 15 gm 15 gm Q15M PRN BUCCAL DECREASED GLUCOSE; Start 10/19/16 at 15:00 Cefazolin Sodium (Ancef 1 Gm/50 ml (Pmx)) 50 ml @ 100 mls/hr Q12H IVPB Last administered on 10/23/16 17:31; Admin Dose 100 MLS/HR; Start 10/19/16 at 17:00 Acetaminophen/ Hydrocodone Bitart ([place] (5/325)) 1 tab Q6H PRN PO PAIN Last administered on 10/20/16 21:45; Admin Dose 1 TAB; Start 10/19/16 at 17:30 Acetaminophen/ Hydrocodone Bitart ([place] (5/325)) 2 tab Q6H PRN PO PAIN Last administered on 10/22/16 21:28; Admin Dose 2 TAB; Start 10/19/16 at 17:30 Folic Acid (Folic Acid) 1 mg DAILY PO Last administered on 10/23/16 08:08; Admin Dose 1 MG; Start 10/20/16 at 13:30 Epoetin Al (Epogen (Neserd)) 6,000 units MoWeFr@17 SC Last administered on 17:31; Admin Dose 6,000 UNITS; Start 10/22/16 at 17:00; Stop 10/27/16 at 16:59 Collagenase (Santyl) 1 applic DAILY TOP Last administered on 10/23/16 12:46; Admin Dose 1 APPLIC; Start 10/21/16 at 16:00 Collagenase (Santyl) 1 applic PRN PRN TOP WOUND CARE; Start 10/21/16 at 15:00 Pantoprazole (Protonix Tab) 40 mg BID@06,18 PO Last administered on 10/23/16 17:31; Admin Dose 40 MG; Start 10/23/16 at 18:00 Ondansetron HCl (Zofran Tab) 4 mg Q6H PRN PO NAUSEA AND/OR VOMITING Last administered on 10/23/16 16:17; Admin Dose 4 MG; Start 10/23/16 at 16:16 TINO ALLISON MD Oct 23, 2016 19:50
[2016-10-23] MEDS: INSULIN GLARGINE [LANtus] 3 ML PEN SC SCH (20:04)
[2016-10-23] MEDS: ATORVASTATIN 80 MG TAB PO SCH (20:04)
[2016-10-23] MEDS: HYDROCODONE/APAP (5/325) TAB PO PRN (20:20)
[2016-10-23 21:00] VITALS: BP 111/63; PULSE 87; RESP 18
[2016-10-23] MEDS: METOPROLOL (XL) 100 MG TAB PO SCH (21:09)
[2016-10-23 21:23] VITALS: BP 129/65; RESP 18
[2016-10-23 22:20] VITALS: BP 109/66; PULSE 97
[2016-10-24] MEDS: ACCU-CHEK XX SCH (02:00)
[2016-10-24 02:11] VITALS: BP 108/66; RESP 19
[2016-10-24] MEDS: CEFAZOLIN 1 GM/50 ML (PMX) 50 ML IVPB SCH ×2 (05:24→16:17)
[2016-10-24] MEDS: PANTOPRAZOLE (EC) 40 MG TAB PO SCH ×2 (05:25→19:12)
[2016-10-24] MEDS: LEVOTHYROXINE 112 MCG TAB PO SCH (05:25)
[2016-10-24] MEDS: HEPARIN 5,000 UNIT/0.5 ML VIAL SC SCH ×3 (05:27→22:13)
[2016-10-24 07:19] LABS: ADD SCAN DIFF NO
[2016-10-24 07:22] LABS: BASOPHILS % 0.5 % (0.0-2.0); EOSINOPHILS # 0.2 10^3/ul (0.0-0.5); EOSINOPHILS % 2.5 % (0.0-7.0); HEMATOCRIT 29.5 % (42.0-52.0); HEMOGLOBIN 8.9 g/dl (14.0-18.0); LYMPHOCYTES # 1.9 10^3/ul (0.8-2.9); LYMPHOCYTES % 22.2 % (15.0-51.0); MEAN CORPUSCULAR HEMOGLOBIN 33.6 pg (29.0-33.0); MEAN CORPUSCULAR HGB CONC 30.2 g/dl (32.0-37.0); MEAN CORPUSCULAR VOLUME 111.3 fl (82.0-101.0); MEAN PLATELET VOLUME 9.8 fl (7.4-10.4); MONOCYTES % 12.4 % (0.0-11.0); NEUTROPHIL # 5.2 10^3/ul (1.6-7.5); NEUTROPHILS % 61.9 % (39.0-77.0); PLATELET COUNT 212 10^3/UL (140-415); RED BLOOD COUNT 2.65 10^6/ul (4.70-6.10); RED CELL DISTRIBUTION WIDTH 17.7 % (11.5-14.5); WHITE BLOOD COUNT 8.3 10^3/ul (4.8-10.8)
[2016-10-24] MEDS: INSULIN ASPART [NOVOLOG] 3 ML PEN SC SCH ×7 (07:30→21:00)
[2016-10-24 07:47] LABS: ALBUMIN 3.1 g/dl (3.3-4.9); ALBUMIN/GLOBULIN RATIO 0.93; BILIRUBIN,INDIRECT 0.6 mg/dl (0-1.1); BILIRUBIN,TOTAL 0.6 mg/dl (0.2-1.3); CREATININE 2.26 mg/dl (0.61-1.24); TOTAL PROTEIN 6.4 g/dl (6.1-8.1)
[2016-10-24 07:51] LABS: POTASSIUM 5.4 mmol/L (3.5-5.1)
[2016-10-24 08:22] VITALS: BP 113/59; RESP 19
[2016-10-24] MEDS: ALLOPURINOL 100 MG TAB PO SCH (08:38)
[2016-10-24] MEDS: LINAGLIPTIN 5 MG TABLET PO SCH (08:38)
[2016-10-24] MEDS: FOLIC ACID 1 MG TAB PO SCH (08:38)
[2016-10-24] MEDS: COLLAGENASE 30 GM TUBE TOP SCH (08:39)
[2016-10-24 14:18] VITALS: BP 119/77; RESP 18
--- NOTE | 2016-10-24 14:31 | PN ---
Date/Time of Note Date/Time of Note DATE: 10/24/16 TIME: 14:28 Assessment/Plan VTE Prophylaxis VTE Prophylaxis Intervention: SCD's Lines/Catheters [facility] Peripheral IV Urinary Cath still in place: No Assessment/Plan Problems: (1) Venous insufficiency of left lower extremity Status: Chronic Comment: As per wound care consultants. Now with leg wrappings and on antibiotics and improving steadily. Ultimately he will need to be followed in the [facility] as originally scheduled (2) Venous insufficiency of right leg Status: Chronic Comment: As above (3) Chronic atrial fibrillation Status: Chronic Comment: Will resume anticoagulation in roughly 1 week. This should allow the renal hematoma to hopefully stable (4) Chronic kidney disease, stage II (mild) Status: Chronic Comment: His baseline is between 1.5 and 1.8 (5) Acute kidney injury Status: Acute Comment: Returning to baseline slowly but concur with removal Daniels catheter no further hematuria Subjective 24 Hr Interval Summary Free Text/Dictation Patient is ambulating in hallway with physical therapy slowly Constitutional: no complaints Respiratory: shortness of breath (Moderate shortness of breath with exertion) Cardiovascular: no complaints Gastrointestinal: no complaints Exam/Review of Systems Vital Signs Vitals Vital Signs Date Time Temp Pulse Resp B/P Pulse Ox O2 Delivery O2 Flow Rate FiO2 10/24/16 14:18 98.0 87 18 119/77 92 10/23/16 21:00 Room Air Intake and Output 10/23/16 10/23/16 10/24/16 15:00 23:00 07:00 Intake Total 1510 ml 900 ml Output Total 1800 ml 460 ml Balance -290 ml 440 ml Exam Constitutional: alert, oriented Respiratory: clear to auscultation, normal air movement Extremities: normal pulses, other (Edema is markedly improved) Results Result Diagram: 10/24/1662110/24/16 0622 Results 24 hrs Laboratory Tests Test 10/23/16 17:31 10/23/16 20:02 10/23/16 21:10 10/24/16 06:22 Bedside Glucose 109 128 146 White Blood Count 8.3 # Red Blood Count 2.65 #L Hemoglobin 8.9 L Hematocrit 29.5 #L Mean Corpuscular Volume 111.3 H Mean Corpuscular Hemoglobin 33.6 H Mean Corpuscular Hemoglobin Concent 30.2 L Red Cell Distribution Width 17.7 H Platelet Count 212 # Mean Platelet Volume 9.8 Neutrophils % 61.9 Lymphocytes % 22.2 Monocytes % 12.4 H Eosinophils % 2.5 Basophils % 0.5 Neutrophils # 5.2 Lymphocytes # 1.9 Monocytes # 1.0 H Eosinophils # 0.2 Basophils # 0.0 Nucleated Red Blood Cells # 0.0 Sodium Level 138 Potassium Level 5.4 H Chloride Level 102 Carbon Dioxide Level 20 L Anion Gap 21 H Blood Urea Nitrogen 31 H Creatinine 2.26 H Glucose Level 139 # Calcium Level 9.0 Total Bilirubin 0.6 Direct Bilirubin 0.00 Indirect Bilirubin 0.6 Aspartate Amino Transf (AST/SGOT) 88 H Alanine Aminotransferase (ALT/SGPT) 30 Alkaline Phosphatase 116 Total Protein 6.4 Albumin 3.1 L Globulin 3.30 H Albumin/Globulin Ratio 0.93 Test 10/24/16 07:54 10/24/16 11:59 Bedside Glucose 121 103 Medications Medications Current Medications Docusate Sodium (Colace) 100 mg Q12H PRN PO CONSTIPATION; Start 10/19/16 at 11: 00 Zolpidem Tartrate (Ambien) 5 mg QHS PRN PO SLEEP; Start 10/19/16 at 11:00 Heparin Sodium (Porcine) 5000 unit 5,000 unit Q8 SC Last administered on 05:27; Admin Dose 5,000 UNIT; Start 10/19/16 at 14:00 Sodium Chloride (1/2 NS) 1,000 ml @ 50 mls/hr Q20H IV Last administered on 17:36; Admin Dose 50 MLS/HR; Start 10/19/16 at 14:00 Levothyroxine Sodium (Synthroid) 112 mcg DAILY@06 PO Last administered on 05:25; Admin Dose 112 MCG; Start 10/20/16 at 06:00 Metoprolol Succinate (Toprol Xl) 100 mg QHS PO Last administered on 10/23/16 21:09; Admin Dose 100 MG; Start 10/19/16 at 21:00 Allopurinol (Zyloprim) 100 mg QAM PO Last administered on 10/24/16 08:38; Admin Dose 100 MG; Start 10/20/16 at 09:00 Atorvastatin Calcium (Lipitor) 80 mg QHS PO Last administered on 10/23/16 20: 04; Admin Dose 80 MG; Start 10/19/16 at 21:00 Linagliptin (Tradjenta) 5 mg DAILY PO Last administered on 10/24/16 08:38; Admin Dose 5 MG; Start 10/20/16 at 09:00 Insulin Glargine (Lantus) 6 unit DAILY@20 SC Last administered on 10/23/16 20: 04; Admin Dose 6 UNIT; Start 10/19/16 at 20:00 Diagnostic Test (Pha) (Accu-Chek) 1 ea 02 XX Last administered on 10/20/16 02: 24; Admin Dose 1 EA; Start 10/20/16 at 02:00 Miscellaneous Information 1 ea NOTE XX ; Start 10/19/16 at 15:00 Glucose (Glutose) 15 gm Q15M PRN PO DECREASED GLUCOSE; Start 10/19/16 at 15:00 Glucose (Glutose) 22.5 gm Q15M PRN PO DECREASED GLUCOSE; Start 10/19/16 at 15: 00 Dextrose (D50w Syringe) 25 ml Q15M PRN IV DECREASED GLUCOSE; Start 10/19/16 at 15:00 Dextrose (D50w Syringe) 50 ml Q15M PRN IV DECREASED GLUCOSE; Start 10/19/16 at 15:00 Glucagon (Glucagen) 1 mg Q15M PRN IM DECREASED GLUCOSE; Start 10/19/16 at 15:00 Glucose 15 gm 15 gm Q15M PRN BUCCAL DECREASED GLUCOSE; Start 10/19/16 at 15:00 Cefazolin Sodium (Ancef 1 Gm/50 ml (Pmx)) 50 ml @ 100 mls/hr Q12H IVPB Last administered on 10/24/16 05:24; Admin Dose 100 MLS/HR; Start 10/19/16 at 17:00 Acetaminophen/ Hydrocodone Bitart ([place] (5/325)) 1 tab Q6H PRN PO PAIN Last administered on 10/20/16 21:45; Admin Dose 1 TAB; Start 10/19/16 at 17:30 Acetaminophen/ Hydrocodone Bitart ([place] (5/325)) 2 tab Q6H PRN PO PAIN Last administered on 10/23/16 20:20; Admin Dose 2 TAB; Start 10/19/16 at 17:30 Folic Acid (Folic Acid) 1 mg DAILY PO Last administered on 10/24/16 08:38; Admin Dose 1 MG; Start 10/20/16 at 13:30 Epoetin Al (Epogen (Neserd)) 6,000 units MoWeFr@17 SC Last administered on 17:31; Admin Dose 6,000 UNITS; Start 10/22/16 at 17:00; Stop 10/27/16 at 16:59 Collagenase (Santyl) 1 applic DAILY TOP Last administered on 10/24/16 08:39; Admin Dose 1 APPLIC; Start 10/21/16 at 16:00 Collagenase (Santyl) 1 applic PRN PRN TOP WOUND CARE; Start 10/21/16 at 15:00 Pantoprazole (Protonix Tab) 40 mg BID@06,18 PO Last administered on 10/24/16 05:25; Admin Dose 40 MG; Start 10/23/16 at 18:00 Ondansetron HCl (Zofran Tab) 4 mg Q6H PRN PO NAUSEA AND/OR VOMITING Last administered on 10/23/16 16:17; Admin Dose 4 MG; Start 10/23/16 at 16:16 KASSIDY DIAMOND MD Oct 24, 2016 14:31
[2016-10-24] MEDS: SOD CHLORIDE 0.45% 1,000 ML IV SCH (14:48)
--- NOTE | 2016-10-24 15:29 | CONS ---
Date/Time of Note Date/Time of Note DATE: 10/24/16 TIME: 15:15 Assessment/Plan Assessment/Plan Additional Assessment/Plan Chest x-ray was reviewed from of this month which is essentially unremarkable. CT abdomen was reviewed which is showing moderate bilateral pleural effusions more pronounced on the right side. Assessment recommendations; 1. Patient admitted with chronic lower extremity edema with interval worsening associated with shortness of breath, CT scan abdomen showing moderate bilateral pleural effusions, patient also had significantly elevated BNP level on admission. The findings are pointing towards congestive heart failure as the dominant etiology of his symptoms. 2. Renal insufficiency. 3. History of hypertension. 4. History of prior WI. 5. History of prior smoking. 6. Coughing likely from underlying CHF. Obtain repeat chest x-ray. Obtain a 2D echocardiogram. Once these studies are done I will make further recommendations. Consultation Date/Type/Reason Admit Date/Time Oct 19, 2016 at 10:45 Date of Consultation: Oct 24, 2016 Type of Consultation: Pulmonary Reason for Consultation Pulmonary consultation requested for evaluation of shortness of breath and cough. History of presenting any; patient is a very pleasant 76-year-old white male who was admitted on the 16 of this month when he came to the emergency room with complaints of several months history of increasing lower extremity edema as well as shortness of breath upon exertion. Upon evaluation patient had significant edema patient however has had significant improvement after being given Lasix and according to him shortness of breath also has improved. Patient does complain of cough which is nonproductive without any associated wheezing patient also denies any chest pain any hemoptysis or sputum production. By the time I saw the patient patient is appearing quite comfortable and did not appear to be in any distress whatsoever according to him he is been having progressive lower extremity edema for the last several months to the point recently where swelling was to the point where the patient could not bear it anymore and decided to come to the emergency room. Patient does complain of shortness of breath upon exertion going on for the last several months as well. He denies any urinary symptoms does complain of mild orthopnea. Past medical history; 1. Patient with history of renal insufficiency. 2. History of WI 3 years ago. The extent of myocardial damage of any is unknown at this point. 3. Hypo-thyroidism. 4. Hypertension. 5. Atrial fibrillation. Patient on chronic anticoagulation. 6. History of appendectomy, tonsillectomy as well as herniorrhaphy. Medications; reviewed. Allergies; none. Social history; patient has a [id number] smoking history quit 3 years ago. Most of alcohol or drug abuse. Family history; patient is single has not had any children. Lives by himself. 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 Review of systems; denies any headache, seizures. Any visual changes. Denies any chest pain, wheezing. Complains of cough without any sputum production. Denies any hemoptysis. Denies abdominal pain, nausea vomiting. Denies any melena or hematochezia. Edema has improved. Orthopnea has improved. Dyspnea on exertion also has improved. Denies any weight change. Has fair appetite. Does complain of easy skin bruising. General exam; elderly male, awake alert currently in no distress. Constitutional: no complaints Eyes: no complaints ENT: no complaints Respiratory: shortness of breath (Moderate shortness of breath with exertion) Cardiovascular: no complaints Gastrointestinal: no complaints Genitourinary: no complaints, No hematuria Musculoskeletal: no complaints Skin: other (Cellulitis of the lower extremities) Neurologic: no complaints Endocrine: no complaints Lymphatic: no complaints Psychological: no complaints Immunologic: no complaints Past Medical History Medical History: angina, coronary artery disease, diabetes, high cholesterol, hypertension, hypothyroid, renal disease, other (renal stones, atrial fib 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) Past Surgical History Past Surgical Hx: appendectomy, other (Bilateral inguinal hernia repair, bilateral extracorporeal shockwave lithotripsy, tonsillectomy, skin cancer removal) Social History Alcohol Use: none Smoking Status: Never smoker Drug Use: none Exam/Review of Systems Vital Signs Vitals Vital Signs Date Time Temp Pulse Resp B/P Pulse Ox O2 Delivery O2 Flow Rate FiO2 10/24/16 14:18 98.0 87 18 119/77 92 10/23/16 21:00 Room Air Intake and Output 10/23/16 10/23/16 10/24/16 15:00 23:00 07:00 Intake Total 1510 ml 900 ml Output Total 1800 ml 460 ml Balance -290 ml 440 ml Exam HEENT exam; supple neck, positive JVD. No lymphadenopathy. Midline trachea. No thyromegaly. Pharynx is clear. Patient has small pupils bilaterally. Chest exam; minimally decreased breath on lung bases bilaterally more pronounced right lower lobe. S1-S2 audible, no murmurs. Irregular rhythm. Abdomen exam; soft, no organomegaly. No distention. Bowel sounds audible. Nontender. Extremity exam; both lower extremities are not wrapped in Jamie pressure dressing. 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 Results Result Diagram: 10/24/16 0610/24/16 0622 Results 24 hrs Laboratory Tests Test 10/23/16 17:31 10/23/16 20:02 10/23/16 21:10 10/24/16 06:22 Bedside Glucose 109 128 146 White Blood Count 8.3 # Red Blood Count 2.65 #L Hemoglobin 8.9 L Hematocrit 29.5 #L Mean Corpuscular Volume 111.3 H Mean Corpuscular Hemoglobin 33.6 H Mean Corpuscular Hemoglobin Concent 30.2 L Red Cell Distribution Width 17.7 H Platelet Count 212 # Mean Platelet Volume 9.8 Neutrophils % 61.9 Lymphocytes % 22.2 Monocytes % 12.4 H Eosinophils % 2.5 Basophils % 0.5 Neutrophils # 5.2 Lymphocytes # 1.9 Monocytes # 1.0 H Eosinophils # 0.2 Basophils # 0.0 Nucleated Red Blood Cells # 0.0 Sodium Level 138 Potassium Level 5.4 H Chloride Level 102 Carbon Dioxide Level 20 L Anion Gap 21 H Blood Urea Nitrogen 31 H Creatinine 2.26 H Glucose Level 139 # Calcium Level 9.0 Total Bilirubin 0.6 Direct Bilirubin 0.00 Indirect Bilirubin 0.6 Aspartate Amino Transf (AST/SGOT) 88 H Alanine Aminotransferase (ALT/SGPT) 30 Alkaline Phosphatase 116 Total Protein 6.4 Albumin 3.1 L Globulin 3.30 H Albumin/Globulin Ratio 0.93 Test 10/24/16 07:54 10/24/16 11:59 Bedside Glucose 121 103 Medications Medications Current Medications Docusate Sodium (Colace) 100 mg Q12H PRN PO CONSTIPATION; Start 10/19/16 at 11: 00 Zolpidem Tartrate (Ambien) 5 mg QHS PRN PO SLEEP; Start 10/19/16 at 11:00 Heparin Sodium (Porcine) 5000 unit 5,000 unit Q8 SC Last administered on t 14:52; Admin Dose 5,000 UNIT; Start 10/19/16 at 14:00 Sodium Chloride (1/2 NS) 1,000 ml @ 50 mls/hr Q20H IV Last administered on 14:48; Admin Dose 50 MLS/HR; Start 10/19/16 at 14:00 Levothyroxine Sodium (Synthroid) 112 mcg DAILY@06 PO Last administered on 05:25; Admin Dose 112 MCG; Start 10/20/16 at 06:00 Metoprolol Succinate (Toprol Xl) 100 mg QHS PO Last administered on 10/23/16 21:09; Admin Dose 100 MG; Start 10/19/16 at 21:00 Allopurinol (Zyloprim) 100 mg QAM PO Last administered on 10/24/16 08:38; Admin Dose 100 MG; Start 10/20/16 at 09:00 Atorvastatin Calcium (Lipitor) 80 mg QHS PO Last administered on 10/23/16 20: 04; Admin Dose 80 MG; Start 10/19/16 at 21:00 Linagliptin (Tradjenta) 5 mg DAILY PO Last administered on 10/24/16 08:38; Admin Dose 5 MG; Start 10/20/16 at 09:00 Insulin Glargine (Lantus) 6 unit DAILY@20 SC Last administered on 10/23/16 20: 04; Admin Dose 6 UNIT; Start 10/19/16 at 20:00 Diagnostic Test (Pha) (Accu-Chek) 1 ea 02 XX Last administered on 10/20/16 02: 24; Admin Dose 1 EA; Start 10/20/16 at 02:00 Miscellaneous Information 1 ea NOTE XX ; Start 10/19/16 at 15:00 Glucose (Glutose) 15 gm Q15M PRN PO DECREASED GLUCOSE; Start 10/19/16 at 15:00 Glucose (Glutose) 22.5 gm Q15M PRN PO DECREASED GLUCOSE; Start 10/19/16 at 15: 00 Dextrose (D50w Syringe) 25 ml Q15M PRN IV DECREASED GLUCOSE; Start 10/19/16 at 15:00 Dextrose (D50w Syringe) 50 ml Q15M PRN IV DECREASED GLUCOSE; Start 10/19/16 at 15:00 Glucagon (Glucagen) 1 mg Q15M PRN IM DECREASED GLUCOSE; Start 10/19/16 at 15:00 Glucose 15 gm 15 gm Q15M PRN BUCCAL DECREASED GLUCOSE; Start 10/19/16 at 15:00 Cefazolin Sodium (Ancef 1 Gm/50 ml (Pmx)) 50 ml @ 100 mls/hr Q12H IVPB Last administered on 10/24/16 05:24; Admin Dose 100 MLS/HR; Start 10/19/16 at 17:00 Acetaminophen/ Hydrocodone Bitart ([place] (5/325)) 1 tab Q6H PRN PO PAIN Last administered on 10/20/16 21:45; Admin Dose 1 TAB; Start 10/19/16 at 17:30 Acetaminophen/ Hydrocodone Bitart ([place] (5/325)) 2 tab Q6H PRN PO PAIN Last administered on 10/23/16 20:20; Admin Dose 2 TAB; Start 10/19/16 at 17:30 Folic Acid (Folic Acid) 1 mg DAILY PO Last administered on 10/24/16 08:38; Admin Dose 1 MG; Start 10/20/16 at 13:30 Epoetin Al (Epogen (Neserd)) 6,000 units MoWeFr@17 SC Last administered on 17:31; Admin Dose 6,000 UNITS; Start 10/22/16 at 17:00; Stop 10/27/16 at 16:59 Collagenase (Santyl) 1 applic DAILY TOP Last administered on 10/24/16 08:39; Admin Dose 1 APPLIC; Start 10/21/16 at 16:00 Collagenase (Santyl) 1 applic PRN PRN TOP WOUND CARE; Start 10/21/16 at 15:00 Pantoprazole (Protonix Tab) 40 mg BID@06,18 PO Last administered on 10/24/16 05:25; Admin Dose 40 MG; Start 10/23/16 at 18:00 Ondansetron HCl (Zofran Tab) 4 mg Q6H PRN PO NAUSEA AND/OR VOMITING Last administered on 10/23/16 16:17; Admin Dose 4 MG; Start 10/23/16 at 16:16 JUSTIN MERINO Oct 24, 2016 15:27
[2016-10-24] MEDS: EPOETIN ALFA (NESRD) 3,000 UNITS/ML VIAL SC SCH (17:54)
[2016-10-24] MEDS: HYDROCODONE/APAP (5/325) TAB PO PRN (19:03)
--- NOTE | 2016-10-24 19:03 | RADRPT ---
Vent Rate: 87 bpm RR Interval: 0 msec LA Interval: 0 msec QRS Duration: 102 msec QT Interval: 344 msec QTC Interval: 413 msec P-R-T [place]: 0 - 39 - 160 degrees Atrial fibrillation Inferior infarct , age undetermined Abnormal ECG Electronically Signed By: Hai Cottrell [id number]
[2016-10-24 20:00] VITALS: BP 127/64; RESP 20
[2016-10-24] MEDS: ATORVASTATIN 80 MG TAB PO SCH (22:06)
[2016-10-24] MEDS: INSULIN GLARGINE [LANtus] 3 ML PEN SC SCH (22:06)
[2016-10-24] MEDS: METOPROLOL (XL) 100 MG TAB PO SCH (22:09)
--- NOTE | 2016-10-24 23:26 | PN ---
Date/Time of Note Date/Time of Note DATE: 10/24/16 TIME: 23:17 Assessment/Plan Lines/Catheters [facility] ([facility] Peripheral IV Daniels in Place (from [facility]): No Assessment/Plan Chief Complaint/Hosp Course -Bilateral lower extremity atherosclerosis: The patient may have infrainguinal disease as were we were unable to palpate the pedal pulses. At the moment, does not seem to be of any significant flow-limiting stenosis. We will continue to monitor his vascular surveillance from that aspect. -Bilateral lower extremity venous insufficiency and venous stasis ulcers (CEAP classification 6): It seems the patient has a longstanding history of venous stasis ulcers that he has been managing on his own. Unfortunately, the patient has not received any compression therapy and denies any venous ablation. Recommend to start with a two layer compression dressing. This will allow a slowl transition to three-layer compression dressings. -Further would recommend applying collagen-based dressings with silver alginate , Melgisorb silver. -Optimize vascular: (blood pressure meds, diet, nutrition, exercise, sugar control, antiplatelets). -Will schedule the patient for a venous reflux study once he has been discharged as this study is only done in outpatient setting. and will followup with patient at [facility] -Discussed findings and plan of management with the patient and he understands. -Thank you for allowing us to partake in the care of your patient. Please call with any questions. Problems: Subjective 24 Hr Interval Summary no new vascular events overnight, tolerated the new compression dressings Exam/Review of Systems Vital Signs Vitals Vital Signs Date Time Temp Pulse Resp B/P Pulse Ox O2 Delivery O2 Flow Rate FiO2 10/24/16 20:00 98.2 81 20 127/64 95 10/23/16 21:00 Room Air Intake and Output 10/23/16 10/23/16 10/24/16 15:00 23:00 07:00 Intake Total 1510 ml 900 ml Output Total 1800 ml 460 ml Balance -290 ml 440 ml Exam Free Text/Dictation GENERAL: Alert, oriented x3. LUNGS: Clear to auscultation bilaterally CARDIOVASCULAR: S1, S2 present ABDOMEN: Soft, nontender, nondistended. Bowel sounds positive. Truncal obesity. EXTREMITIES: -Right lower extremity: Palpable femoral pulse. Unable to palpate pedal pulse secondary to edema. Motor and sensory intact. Capillary refill 3 seconds. Anteromedial and anterolateral ulcer above the ankle crease that has some granulation tissue at its base with surrounding erythema that extends up to the upper calf. Presence of lipodermatosclerosis. Presence of varicose veins. -Left lower extremity: Palpable femoral pulse, unable to palpate the pedal pulse secondary to edema. Motor and sensory intact. Capillary refill 3 seconds. Presence of an anteromedial montoya ulcer above the ankle crease Results Result Diagram: 10/24/16 0622 10/24/16 0622 GIULIA PUENTE MD Oct 24, 2016 23:26
[2016-10-25] MEDS: ACCU-CHEK XX SCH (01:41)
[2016-10-25 02:00] VITALS: BP 115/71; RESP 20
[2016-10-25] MEDS: PANTOPRAZOLE (EC) 40 MG TAB PO SCH ×2 (05:43→18:38)
[2016-10-25] MEDS: LEVOTHYROXINE 112 MCG TAB PO SCH (05:43)
[2016-10-25] MEDS: CEFAZOLIN 1 GM/50 ML (PMX) 50 ML IVPB SCH ×2 (05:43→17:46)
[2016-10-25] MEDS: HEPARIN 5,000 UNIT/0.5 ML VIAL SC SCH ×3 (05:45→21:44)
[2016-10-25] MEDS: INSULIN ASPART [NOVOLOG] 3 ML PEN SC SCH ×7 (07:30→21:00)
[2016-10-25 08:00] VITALS: BP 131/77; RESP 20
[2016-10-25] MEDS: ALLOPURINOL 100 MG TAB PO SCH (08:36)
[2016-10-25] MEDS: FOLIC ACID 1 MG TAB PO SCH (08:36)
[2016-10-25] MEDS: LINAGLIPTIN 5 MG TABLET PO SCH (08:36)
[2016-10-25] MEDS: HYDROCODONE/APAP (5/325) TAB PO PRN (11:00)
[2016-10-25] MEDS: COLLAGENASE 30 GM TUBE TOP SCH (11:00)
--- NOTE | 2016-10-25 12:33 | CONS ---
Date/Time of Note Date/Time of Note DATE: 10/25/16 TIME: 12:28 Assessment/Plan Assessment/Plan Additional Assessment/Plan Assessment recommendations; 1. Patient admitted with shortness of breath likely due to underlying congestive heart failure. 2. History of recent OR. 3. History of hypertension. 4. Renal insufficiency. Continue current treatment. Awaiting chest x-ray and 2D echocardiogram to be done. Consultation Date/Type/Reason Admit Date/Time Oct 19, 2016 at 10:45 Initial Consult Date 10/24/16 Type of Consultation: Pulmonary Referring Provider: KASSIDY DIAMOND MD 24 HR Interval Summary Free Text/Dictation Patient condition stable. Reporting decreased shortness of breath. Denies any chest pain, wheezing, cough or sputum production. General exam; elderly male, awake alert currently in no distress. Eating lunch on bed. Exam/Review of Systems Vital Signs Vitals Vital Signs Date Time Temp Pulse Resp B/P Pulse Ox O2 Delivery O2 Flow Rate FiO2 10/25/16 08:00 97.5 77 20 131/77 96 10/23/16 21:00 Room Air Intake and Output 10/24/16 10/24/16 10/25/16 15:00 23:00 07:00 Intake Total 425 ml 985 ml 1345 ml Output Total 850 ml Balance 425 ml 985 ml 495 ml Exam HEENT exam; supple neck, positive JVD. No lymphadenopathy. Midline trachea. No thyromegaly. Chest exam; minimally decreased breath sounds right lower lobe otherwise clear to auscultation. S1-S2 audible, no murmurs. Regular rhythm. Abdomen exam; soft, nontender. No organomegaly. Bowel sounds audible. Extremity exam; trace lower extremity edema. Pulses 1+ bilaterally. No clubbing. 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 Results Result Diagram: 10/24/16 0622 10/24/16 0622 Results 24 hrs Laboratory Tests Test 10/24/16 17:28 10/24/16 22:03 10/25/16 08:34 10/25/16 11:43 Bedside Glucose 172 118 90 126 Medications Medications Current Medications Docusate Sodium (Colace) 100 mg Q12H PRN PO CONSTIPATION; Start 10/19/16 at 11: 00 Zolpidem Tartrate (Ambien) 5 mg QHS PRN PO SLEEP; Start 10/19/16 at 11:00 Heparin Sodium (Porcine) 5000 unit 5,000 unit Q8 SC Last administered on 05:45; Admin Dose 5,000 UNIT; Start 10/19/16 at 14:00 Sodium Chloride (1/2 NS) 1,000 ml @ 50 mls/hr Q20H IV Last administered on 14:48; Admin Dose 50 MLS/HR; Start 10/19/16 at 14:00 Levothyroxine Sodium (Synthroid) 112 mcg DAILY@06 PO Last administered on 05:43; Admin Dose 112 MCG; Start 10/20/16 at 06:00 Metoprolol Succinate (Toprol Xl) 100 mg QHS PO Last administered on 10/24/16 22:09; Admin Dose 100 MG; Start 10/19/16 at 21:00 Allopurinol (Zyloprim) 100 mg QAM PO Last administered on 10/25/16 08:36; Admin Dose 100 MG; Start 10/20/16 at 09:00 Atorvastatin Calcium (Lipitor) 80 mg QHS PO Last administered on 10/24/16 22: 06; Admin Dose 80 MG; Start 10/19/16 at 21:00 Linagliptin (Tradjenta) 5 mg DAILY PO Last administered on 10/25/16 08:36; Admin Dose 5 MG; Start 10/20/16 at 09:00 Insulin Glargine (Lantus) 6 unit DAILY@20 SC Last administered on 10/24/16 22: 06; Admin Dose 6 UNIT; Start 10/19/16 at 20:00 Diagnostic Test (Pha) (Accu-Chek) 1 ea 02 XX Last administered on 10/20/16 02: 24; Admin Dose 1 EA; Start 10/20/16 at 02:00 Miscellaneous Information 1 ea NOTE XX ; Start 10/19/16 at 15:00 Glucose (Glutose) 15 gm Q15M PRN PO DECREASED GLUCOSE; Start 10/19/16 at 15:00 Glucose (Glutose) 22.5 gm Q15M PRN PO DECREASED GLUCOSE; Start 10/19/16 at 15: 00 Dextrose (D50w Syringe) 25 ml Q15M PRN IV DECREASED GLUCOSE; Start 10/19/16 at 15:00 Dextrose (D50w Syringe) 50 ml Q15M PRN IV DECREASED GLUCOSE; Start 10/19/16 at 15:00 Glucagon (Glucagen) 1 mg Q15M PRN IM DECREASED GLUCOSE; Start 10/19/16 at 15:00 Glucose 15 gm 15 gm Q15M PRN BUCCAL DECREASED GLUCOSE; Start 10/19/16 at 15:00 Cefazolin Sodium (Ancef 1 Gm/50 ml (Pmx)) 50 ml @ 100 mls/hr Q12H IVPB Last administered on 10/25/16 05:43; Admin Dose 100 MLS/HR; Start 10/19/16 at 17:00 Acetaminophen/ Hydrocodone Bitart ([place] (5/325)) 1 tab Q6H PRN PO PAIN Last administered on 10/20/16 21:45; Admin Dose 1 TAB; Start 10/19/16 at 17:30 Acetaminophen/ Hydrocodone Bitart ([place] (5/325)) 2 tab Q6H PRN PO PAIN Last administered on 10/25/16 11:00; Admin Dose 2 TAB; Start 10/19/16 at 17:30 Folic Acid (Folic Acid) 1 mg DAILY PO Last administered on 10/25/16 08:36; Admin Dose 1 MG; Start 10/20/16 at 13:30 Epoetin Al (Epogen (Neserd)) 6,000 units MoWeFr@17 SC Last administered on 17:54; Admin Dose 6,000 UNITS; Start 10/22/16 at 17:00; Stop 10/27/16 at 16:59 Collagenase (Santyl) 1 applic DAILY TOP Last administered on 10/25/16 11:00; Admin Dose 1 APPLIC; Start 10/21/16 at 16:00 Collagenase (Santyl) 1 applic PRN PRN TOP WOUND CARE; Start 10/21/16 at 15:00 Pantoprazole (Protonix Tab) 40 mg BID@06,18 PO Last administered on 10/25/16 05:43; Admin Dose 40 MG; Start 10/23/16 at 18:00 Ondansetron HCl (Zofran Tab) 4 mg Q6H PRN PO NAUSEA AND/OR VOMITING Last administered on 10/23/16 16:17; Admin Dose 4 MG; Start 10/23/16 at 16:16 JUSTIN MERINO Oct 25, 2016 12:32
[2016-10-25 14:00] VITALS: BP 108/61; RESP 19
[2016-10-25] MEDS: SOD CHLORIDE 0.45% 1,000 ML IV SCH (14:11)
--- NOTE | 2016-10-25 16:58 | RADRPT ---
PROCEDURE: XR Chest. CLINICAL INDICATION: Shortness of breath. TECHNIQUE: Single frontal view. COMPARISON: 10/19/2016. FINDINGS: There is moderate air space disease at the right lung base consistent with atelectasis or pneumonia, worse than seen previously. The lungs are otherwise clear. The heart is enlarged. There is calcification in the aorta consistent with atherosclerosis. There is a moderate right pleural effusion. There is no left pleural effusion. There is no pneumothorax. IMPRESSION: 1. Worse appearance of the right lung base and larger right pleural effusion. 2. Cardiomegaly and atherosclerosis. RPTAT: QQ .Moses Monk MD, MD Date Time Electronically viewed and signed by .Moses Monk MD, MD on 10/25/2016 16:57 .R/
--- NOTE | 2016-10-25 17:04 | PN ---
Date/Time of Note Date/Time of Note DATE: 10/25/16 TIME: 16:59 Assessment/Plan VTE Prophylaxis VTE Prophylaxis Intervention: contraindicated VTE Contraindication Reason: peripheral vascular disease Lines/Catheters [facility] Peripheral IV Urinary Cath still in place: No Assessment/Plan Problems: (1) Chronic atrial fibrillation Status: Chronic (2) Diabetes mellitus type 2, noninsulin dependent Status: Chronic (3) Acute renal failure Status: Acute Qualifiers: Acute renal failure type: with acute tubular necrosis Qualified Code: N17.0 - Acute renal failure with tubular necrosis (4) Venous insufficiency of right leg Status: Chronic (5) Venous insufficiency of left lower extremity Status: Chronic Assessment/Plan Slight improvement in creatinine level. Clinical and biochemical evidence of CHF. Will obtain cardiology consult to optimize cardiac medications. Subjective 24 Hr Interval Summary Free Text/Dictation Minimal SOB. Exam/Review of Systems Vital Signs Vitals Vital Signs Date Time Temp Pulse Resp B/P Pulse Ox O2 Delivery O2 Flow Rate FiO2 10/25/16 14:00 97.7 100 19 108/61 93 10/23/16 21:00 Room Air Intake and Output 10/24/16 10/24/16 10/25/16 15:00 23:00 07:00 Intake Total 425 ml 985 ml 1345 ml Output Total 850 ml Balance 425 ml 985 ml 495 ml Exam Constitutional: alert, oriented Respiratory: clear to auscultation, normal air movement Cardiovascular: irregular rhythm Gastrointestinal: soft Musculoskeletal: other (Bilateral lower extremities bandaged) Results Labs, vitals and POC glucose reviewed Result Diagram: 10/24/1662110/24/16 0622 Results 24 hrs Laboratory Tests Test 10/24/16 17:28 10/24/16 22:03 10/25/16 08:34 10/25/16 11:43 Bedside Glucose 172 118 90 126 Medications Medications Current Medications Docusate Sodium (Colace) 100 mg Q12H PRN PO CONSTIPATION; Start 10/19/16 at 11: 00 Zolpidem Tartrate (Ambien) 5 mg QHS PRN PO SLEEP; Start 10/19/16 at 11:00 Heparin Sodium (Porcine) 5000 unit 5,000 unit Q8 SC Last administered on t 14:13; Admin Dose 5,000 UNIT; Start 10/19/16 at 14:00 Sodium Chloride (1/2 NS) 1,000 ml @ 50 mls/hr Q20H IV Last administered on 14:11; Admin Dose 50 MLS/HR; Start 10/19/16 at 14:00 Levothyroxine Sodium (Synthroid) 112 mcg DAILY@06 PO Last administered on 05:43; Admin Dose 112 MCG; Start 10/20/16 at 06:00 Metoprolol Succinate (Toprol Xl) 100 mg QHS PO Last administered on 10/24/16 22:09; Admin Dose 100 MG; Start 10/19/16 at 21:00 Allopurinol (Zyloprim) 100 mg QAM PO Last administered on 10/25/16 08:36; Admin Dose 100 MG; Start 10/20/16 at 09:00 Atorvastatin Calcium (Lipitor) 80 mg QHS PO Last administered on 10/24/16 22: 06; Admin Dose 80 MG; Start 10/19/16 at 21:00 Linagliptin (Tradjenta) 5 mg DAILY PO Last administered on 10/25/16 08:36; Admin Dose 5 MG; Start 10/20/16 at 09:00 Insulin Glargine (Lantus) 6 unit DAILY@20 SC Last administered on 10/24/16 22: 06; Admin Dose 6 UNIT; Start 10/19/16 at 20:00 Diagnostic Test (Pha) (Accu-Chek) 1 ea 02 XX Last administered on 10/20/16 02: 24; Admin Dose 1 EA; Start 10/20/16 at 02:00 Miscellaneous Information 1 ea NOTE XX ; Start 10/19/16 at 15:00 Glucose (Glutose) 15 gm Q15M PRN PO DECREASED GLUCOSE; Start 10/19/16 at 15:00 Glucose (Glutose) 22.5 gm Q15M PRN PO DECREASED GLUCOSE; Start 10/19/16 at 15: 00 Dextrose (D50w Syringe) 25 ml Q15M PRN IV DECREASED GLUCOSE; Start 10/19/16 at 15:00 Dextrose (D50w Syringe) 50 ml Q15M PRN IV DECREASED GLUCOSE; Start 10/19/16 at 15:00 Glucagon (Glucagen) 1 mg Q15M PRN IM DECREASED GLUCOSE; Start 10/19/16 at 15:00 Glucose 15 gm 15 gm Q15M PRN BUCCAL DECREASED GLUCOSE; Start 10/19/16 at 15:00 Cefazolin Sodium (Ancef 1 Gm/50 ml (Pmx)) 50 ml @ 100 mls/hr Q12H IVPB Last administered on 10/25/16 05:43; Admin Dose 100 MLS/HR; Start 10/19/16 at 17:00 Acetaminophen/ Hydrocodone Bitart ([place] (5/325)) 1 tab Q6H PRN PO PAIN Last administered on 10/20/16 21:45; Admin Dose 1 TAB; Start 10/19/16 at 17:30 Acetaminophen/ Hydrocodone Bitart ([place] (5/325)) 2 tab Q6H PRN PO PAIN Last administered on 10/25/16 11:00; Admin Dose 2 TAB; Start 10/19/16 at 17:30 Folic Acid (Folic Acid) 1 mg DAILY PO Last administered on 10/25/16 08:36; Admin Dose 1 MG; Start 10/20/16 at 13:30 Epoetin Al (Epogen (Neserd)) 6,000 units MoWeFr@17 SC Last administered on 17:54; Admin Dose 6,000 UNITS; Start 10/22/16 at 17:00; Stop 10/27/16 at 16:59 Collagenase (Santyl) 1 applic DAILY TOP Last administered on 10/25/16 11:00; Admin Dose 1 APPLIC; Start 10/21/16 at 16:00 Collagenase (Santyl) 1 applic PRN PRN TOP WOUND CARE; Start 10/21/16 at 15:00 Pantoprazole (Protonix Tab) 40 mg BID@06,18 PO Last administered on 10/25/16 05:43; Admin Dose 40 MG; Start 10/23/16 at 18:00 Ondansetron HCl (Zofran Tab) 4 mg Q6H PRN PO NAUSEA AND/OR VOMITING Last administered on 10/23/16 16:17; Admin Dose 4 MG; Start 10/23/16 at 16:16 ANABELLE LIMA MD Oct 25, 2016 17:04
--- NOTE | 2016-10-25 17:52 | RADRPT ---
Echocardiogram Report Patient Name: NADIA PANCHAL Gender: Male Date: 1940 Study Date: 25-Oct-2016 Mask Layout Designer: ANDERSON Location: I Ref. Physician: JUSTIN MERINO Quality: Technically Difficult Study Procedures: Transthoracic echocardiogram with complete 2D, M-Mode, and doppler examination. Indications: Congestive Heart Failure. 2D/M Mode Doppler Measurement Value Normal Ranges Measurement Value Normal Ranges AoR Diam MM 3.7 cm AV Peak Blue 0.9 m/sec ACS MM 1.9 cm AV Peak PG 3.3 mmHg LVIDd 2D 4.5 3.5 - 5.6 cm LVOT Peak Blue 0.8 m/sec LVIDs 2D 3.4 2.1 - 4.1 cm LVOT Peak PG 2.6 mmHg LVPWd 2D 1.3 0.6 - 1.1 cm TR Peak Blue 3.2 m/sec IVSd 2D 1.3 0.6 - 1.1 cm TR Peak PG 41.0 mmHg EDV 2D 90.4 cm3 PV Peak Blue 0.9 m/sec ESV 2D 38.3 cm3 PV Peak PG 4.0 mmHg LA Dimen 2D 4.6 2.3 - 4.0 cm RVSP 44.0 mmHg Findings Left Ventricle: Normal left ventricular cavity size. Mild concentric left ventricular hypertrophy. Mild left ventricular systolic dysfunction. Ejection fraction is visually estimated at 45 - 50 %. Tissue Doppler/Mitral Doppler indices are indeterminate in this study due to the presence of abnormal rhythm throughout exam. E/E`=7. Right Ventricle: Mild enlargement of right ventricle. Left Atrium: There is moderate enlargement of left atrium. Right Atrium: There is mild enlargement of right atrium. Atrial Septum: Normal atrial septum. Mitral Valve: Mild mitral annular calcification. Mild to moderate mitral valve regurgitation. Aortic Valve: No hemodynamically significant aortic stenosis by doppler. Aortic cusps appear mildly calcified. Trileaflet aortic valve. Trace aortic valve regurgitation. Tricuspid Valve: Normal appearance of the tricuspid valve. Estimated peak PA systolic pressure 44 mmHg. There is mild tricuspid regurgitation. Pulmonic Valve: Normal pulmonic valve appearance. There is trace pulmonic regurgitation. Pericardium: Normal pericardium with no significant pericardial effusion. Pleural effusion seen. Aorta: Normal aortic root. IVC: Normal size and normal respiratory collapse consistent with normal right atrial pressure. Pulmonary Artery: Normal pulmonary artery size. Conclusions 1.Normal left ventricular cavity size. Mild concentric left ventricular hypertrophy. Mild left ventricular systolic dysfunction. Ejection fraction is visually estimated at 45 - 50 %. Tissue Doppler/Mitral Doppler indices are indeterminate in this study due to the presence of abnormal rhythm throughout exam. E/E`=7. 2.There is moderate enlargement of left atrium. 3.There is mild enlargement of right atrium. 4.Mild mitral annular calcification. Mild to moderate mitral valve regurgitation. 5.No hemodynamically significant aortic stenosis by doppler. Aortic cusps appear mildly calcified. Trileaflet aortic valve. Trace aortic valve regurgitation. 6.Normal appearance of the tricuspid valve. Estimated peak PA systolic pressure 44 mmHg. There is mild tricuspid regurgitation. Electronically Signed By: Moustapha Garcia 25-Oct-2016 17:52:02 -0700 Patient Name: NADIA PANCHAL Study Date: 25-Oct-2016 [id number]
--- NOTE | 2016-10-25 19:19 | PN ---
Date/Time of Note Date/Time of Note DATE: 10/25/16 TIME: 19:13 Assessment/Plan VTE Prophylaxis VTE Prophylaxis Intervention: contraindicated Lines/Catheters [facility] (from [facility] Peripheral IV Urinary Cath still in place: No Assessment/Plan Chief Complaint/Hosp Course Right renal subcapsular hematoma status post right extracorporeal shockwave lithotripsy on September 24, 2016. Serum creatinine did go up to 4.59 and then has come down to 2.26 His left kidney is smaller than the right kidney, the right renal subcapsular hematoma will gradually subside and renal function will gradually continue to improve. There is no need for any surgical intervention. We will keep the scrotum elevated on a towel all the time because of the scrotal swelling. Problems: Assessment/Plan Daniels catheter has been removed, he has been voiding well, no dysuria and no hematuria, his renal function is improving and his H&H are stable From a urological standpoint he is stable Subjective 24 Hr Interval Summary Free Text/Dictation Patient is comfortable. He is complaining of constipation Constitutional: improved Eyes: no complaints ENT: no complaints Respiratory: No cough, No shortness of breath Cardiovascular: no complaints Gastrointestinal: constipation Genitourinary: no complaints, No dysuria, No hematuria Musculoskeletal: no complaints Skin: other (Cellulitis of lower extremities, he states that they look better) Neurologic: no complaints Endocrine: no complaints Psychological: no complaints Exam/Review of Systems Vital Signs Vitals Vital Signs Date Time Temp Pulse Resp B/P Pulse Ox O2 Delivery O2 Flow Rate FiO2 10/25/16 14:00 97.7 100 19 108/61 93 10/23/16 21:00 Room Air Intake and Output 10/24/16 10/24/16 10/25/16 15:00 23:00 07:00 Intake Total 425 ml 985 ml 1345 ml Output Total 850 ml Balance 425 ml 985 ml 495 ml Exam Constitutional: alert, oriented Psych: no complaints Head: normocephalic Eyes: nl conjunctiva ENMT: nl external ears & nose Neck: non-tender, supple Respiratory: normal air movement Gastrointestinal: soft Genitourinary - Male: No CVA tenderness Extremities: other (Cellulitis of lower extremities. They are wrapped) Results Result Diagram: 10/24/1662110/24/16621 Results 24 hrs Laboratory Tests Test 10/24/16:03 10/25/16 08:34 10/25/16 11:43 10/25/16 17:22 Bedside Glucose 118 90 126 223 H Medications Medications Current Medications Docusate Sodium (Colace) 100 mg Q12H PRN PO CONSTIPATION Last administered on 18:38; Admin Dose 100 MG; Start 10/19/16 at 11:00 Zolpidem Tartrate (Ambien) 5 mg QHS PRN PO SLEEP; Start 10/19/16 at 11:00 Heparin Sodium (Porcine) 5000 unit 5,000 unit Q8 SC Last administered on 14:13; Admin Dose 5,000 UNIT; Start 10/19/16 at 14:00 Sodium Chloride (1/2 NS) 1,000 ml @ 50 mls/hr Q20H IV Last administered on 14:11; Admin Dose 50 MLS/HR; Start 10/19/16 at 14:00 Levothyroxine Sodium (Synthroid) 112 mcg DAILY@06 PO Last administered on 05:43; Admin Dose 112 MCG; Start 10/20/16 at 06:00 Metoprolol Succinate (Toprol Xl) 100 mg QHS PO Last administered on 10/24/16 22:09; Admin Dose 100 MG; Start 10/19/16 at 21:00 Allopurinol (Zyloprim) 100 mg QAM PO Last administered on 10/25/16 08:36; Admin Dose 100 MG; Start 10/20/16 at 09:00 Atorvastatin Calcium (Lipitor) 80 mg QHS PO Last administered on 10/24/16 22: 06; Admin Dose 80 MG; Start 10/19/16 at 21:00 Linagliptin (Tradjenta) 5 mg DAILY PO Last administered on 10/25/16 08:36; Admin Dose 5 MG; Start 10/20/16 at 09:00 Insulin Glargine (Lantus) 6 unit DAILY@20 SC Last administered on 10/24/16 22: 06; Admin Dose 6 UNIT; Start 10/19/16 at 20:00 Diagnostic Test (Pha) (Accu-Chek) 1 ea 02 XX Last administered on 10/20/16 02: 24; Admin Dose 1 EA; Start 10/20/16 at 02:00 Miscellaneous Information 1 ea NOTE XX ; Start 10/19/16 at 15:00 Glucose (Glutose) 15 gm Q15M PRN PO DECREASED GLUCOSE; Start 10/19/16 at 15:00 Glucose (Glutose) 22.5 gm Q15M PRN PO DECREASED GLUCOSE; Start 10/19/16 at 15: 00 Dextrose (D50w Syringe) 25 ml Q15M PRN IV DECREASED GLUCOSE; Start 10/19/16 at 15:00 Dextrose (D50w Syringe) 50 ml Q15M PRN IV DECREASED GLUCOSE; Start 10/19/16 at 15:00 Glucagon (Glucagen) 1 mg Q15M PRN IM DECREASED GLUCOSE; Start 10/19/16 at 15:00 Glucose 15 gm 15 gm Q15M PRN BUCCAL DECREASED GLUCOSE; Start 10/19/16 at 15:00 Cefazolin Sodium (Ancef 1 Gm/50 ml (Pmx)) 50 ml @ 100 mls/hr Q12H IVPB Last administered on 10/25/16 17:46; Admin Dose 100 MLS/HR; Start 10/19/16 at 17:00 Acetaminophen/ Hydrocodone Bitart ([place] (5/325)) 1 tab Q6H PRN PO PAIN Last administered on 10/20/16 21:45; Admin Dose 1 TAB; Start 10/19/16 at 17:30 Acetaminophen/ Hydrocodone Bitart ([place] (5/325)) 2 tab Q6H PRN PO PAIN Last administered on 10/25/16 11:00; Admin Dose 2 TAB; Start 10/19/16 at 17:30 Folic Acid (Folic Acid) 1 mg DAILY PO Last administered on 10/25/16 08:36; Admin Dose 1 MG; Start 10/20/16 at 13:30 Epoetin Al (Epogen (Neserd)) 6,000 units MoWeFr@17 SC Last administered on 17:54; Admin Dose 6,000 UNITS; Start 10/22/16 at 17:00; Stop 10/27/16 at 16:59 Collagenase (Santyl) 1 applic DAILY TOP Last administered on 10/25/16 11:00; Admin Dose 1 APPLIC; Start 10/21/16 at 16:00 Collagenase (Santyl) 1 applic PRN PRN TOP WOUND CARE; Start 10/21/16 at 15:00 Pantoprazole (Protonix Tab) 40 mg BID@06,18 PO Last administered on 10/25/16 18:38; Admin Dose 40 MG; Start 10/23/16 at 18:00 Ondansetron HCl (Zofran Tab) 4 mg Q6H PRN PO NAUSEA AND/OR VOMITING Last administered on 10/23/16 16:17; Admin Dose 4 MG; Start 10/23/16 at 16:16 TINO ALLISON MD Oct 25, 2016 19:19
[2016-10-25 20:00] VITALS: BP 116/73; RESP 20
[2016-10-25] MEDS: ATORVASTATIN 80 MG TAB PO SCH (21:37)
[2016-10-25] MEDS: METOPROLOL (XL) 100 MG TAB PO SCH (21:38)
[2016-10-25] MEDS: INSULIN GLARGINE [LANtus] 3 ML PEN SC SCH (21:41)
[2016-10-25] MEDS ORDERED: MAGNESIUM HYDROXIDE 30ML CUP PO PRN (22:00)
[2016-10-26] MEDS: ACCU-CHEK XX SCH (01:08)
[2016-10-26 02:00] VITALS: BP 135/74; RESP 20
[2016-10-26] MEDS: SOD CHLORIDE 0.45% 1,000 ML IV SCH ×2 (06:00→15:39)
[2016-10-26] MEDS: LEVOTHYROXINE 112 MCG TAB PO SCH (06:19)
[2016-10-26] MEDS: CEFAZOLIN 1 GM/50 ML (PMX) 50 ML IVPB SCH (06:19)
[2016-10-26] MEDS: PANTOPRAZOLE (EC) 40 MG TAB PO SCH ×2 (06:19→17:34)
[2016-10-26] MEDS: HEPARIN 5,000 UNIT/0.5 ML VIAL SC SCH ×3 (06:22→22:08)
[2016-10-26] MEDS: INSULIN ASPART [NOVOLOG] 3 ML PEN SC SCH ×7 (07:30→21:00)
[2016-10-26 08:00] VITALS: BP 128/78; RESP 20
[2016-10-26] MEDS: LINAGLIPTIN 5 MG TABLET PO SCH (08:40)
[2016-10-26] MEDS: FOLIC ACID 1 MG TAB PO SCH (08:40)
[2016-10-26] MEDS: ALLOPURINOL 100 MG TAB PO SCH (08:40)
[2016-10-26] MEDS: COLLAGENASE 30 GM TUBE TOP SCH (09:00)
--- NOTE | 2016-10-26 12:21 | CONS ---
Date/Time of Note Date/Time of Note DATE: 10/26/16 TIME: 12:18 Assessment/Plan Assessment/Plan Additional Assessment/Plan 2D echocardiogram is showing moderate mitral regurgitation with preserved LV function. Chest x-ray was reviewed which is showing increasing right lower lobe infiltrate /pleural effusion. Assessment recommendations; 1. Patient admitted with shortness of breath due to possibly underlying diastolic dysfunction causing bilateral pleural effusions. 2. Chest x-ray showing increasing right lower lobe infiltrate/pleural effusion. 3. History of recent GA. 4. Renal insufficiency. 5. History of hypertension. Discontinue Ancef. Start cefepime 1 g IV every 12 hours and Levaquin 250 mg IV daily. Obtain ultrasound of the right chest. If there is any significant effusion patient would benefit from diagnostic and therapeutic thoracentesis. Monitor renal function. Consultation Date/Type/Reason Admit Date/Time Oct 19, 2016 at 10:45 Initial Consult Date 10/24/16 Type of Consultation: Pulmonary Referring Provider: KASSIDY DIAMOND MD 24 HR Interval Summary Free Text/Dictation Patient's condition is stable. Remains awake alert. Reporting decreased shortness of breath. Denies any chest pain, coughing, sputum production. General exam; elderly male, awake alert currently in no distress. Exam/Review of Systems Vital Signs Vitals Vital Signs Date Time Temp Pulse Resp B/P Pulse Ox O2 Delivery O2 Flow Rate FiO2 10/26/16 08:00 97.7 96 20 128/78 95 10/23/16 21:00 Room Air Intake and Output 10/25/16 10/25/16 10/26/16 15:00 23:00 07:00 Intake Total 300 ml 1700 ml 960 ml Output Total 850 ml Balance 300 ml 1700 ml 110 ml Exam HEENT exam; supple neck, positive JVD. No lymphadenopathy. Midline trachea. No thyromegaly. Pharynx is clear. Chest exam; diminished breath on lung bases bilaterally. S1-S2 audible, no murmurs. Abdomen exam; soft, no organomegaly. Bowel sounds audible. Extremity exam; no peripheral edema. Pulses 2+ bilaterally. No clubbing. SURFACE WATER MANAGER exam; no focal deficit. Results Result Diagram: 10/24/16 0622 10/24/16 0622 Results 24 hrs Laboratory Tests Test 10/25/16 17:22 10/25/16 21:36 10/26/16 08:02 10/26/16 11:49 Bedside Glucose 223 H 106 93 184 Medications Medications Current Medications Docusate Sodium (Colace) 100 mg Q12H PRN PO CONSTIPATION Last administered on 18:38; Admin Dose 100 MG; Start 10/19/16 at 11:00 Zolpidem Tartrate (Ambien) 5 mg QHS PRN PO SLEEP; Start 10/19/16 at 11:00 Heparin Sodium (Porcine) 5000 unit 5,000 unit Q8 SC Last administered on 06:22; Admin Dose 5,000 UNIT; Start 10/19/16 at 14:00 Sodium Chloride (1/2 NS) 1,000 ml @ 50 mls/hr Q20H IV Last administered on 14:11; Admin Dose 50 MLS/HR; Start 10/19/16 at 14:00 Levothyroxine Sodium (Synthroid) 112 mcg DAILY@06 PO Last administered on 06:19; Admin Dose 112 MCG; Start 10/20/16 at 06:00 Metoprolol Succinate (Toprol Xl) 100 mg QHS PO Last administered on 10/25/16 21:38; Admin Dose 100 MG; Start 10/19/16 at 21:00 Allopurinol (Zyloprim) 100 mg QAM PO Last administered on 10/26/16 08:40; Admin Dose 100 MG; Start 10/20/16 at 09:00 Atorvastatin Calcium (Lipitor) 80 mg QHS PO Last administered on 10/25/16 21: 37; Admin Dose 80 MG; Start 10/19/16 at 21:00 Linagliptin (Tradjenta) 5 mg DAILY PO Last administered on 10/26/16 08:40; Admin Dose 5 MG; Start 10/20/16 at 09:00 Insulin Glargine (Lantus) 6 unit DAILY@20 SC Last administered on 10/25/16 21: 41; Admin Dose 6 UNIT; Start 10/19/16 at 20:00 Diagnostic Test (Pha) (Accu-Chek) 1 ea 02 XX Last administered on 10/20/16 02: 24; Admin Dose 1 EA; Start 10/20/16 at 02:00 Miscellaneous Information 1 ea NOTE XX ; Start 10/19/16 at 15:00 Glucose (Glutose) 15 gm Q15M PRN PO DECREASED GLUCOSE; Start 10/19/16 at 15:00 Glucose (Glutose) 22.5 gm Q15M PRN PO DECREASED GLUCOSE; Start 10/19/16 at 15: 00 Dextrose (D50w Syringe) 25 ml Q15M PRN IV DECREASED GLUCOSE; Start 10/19/16 at 15:00 Dextrose (D50w Syringe) 50 ml Q15M PRN IV DECREASED GLUCOSE; Start 10/19/16 at 15:00 Glucagon (Glucagen) 1 mg Q15M PRN IM DECREASED GLUCOSE; Start 10/19/16 at 15:00 Glucose 15 gm 15 gm Q15M PRN BUCCAL DECREASED GLUCOSE; Start 10/19/16 at 15:00 Cefazolin Sodium (Ancef 1 Gm/50 ml (Pmx)) 50 ml @ 100 mls/hr Q12H IVPB Last administered on 10/26/16 06:19; Admin Dose 100 MLS/HR; Start 10/19/16 at 17:00 Acetaminophen/ Hydrocodone Bitart ([place] (5/325)) 1 tab Q6H PRN PO PAIN Last administered on 10/20/16 21:45; Admin Dose 1 TAB; Start 10/19/16 at 17:30 Acetaminophen/ Hydrocodone Bitart ([place] (5/325)) 2 tab Q6H PRN PO PAIN Last administered on 10/25/16 11:00; Admin Dose 2 TAB; Start 10/19/16 at 17:30 Folic Acid (Folic Acid) 1 mg DAILY PO Last administered on 10/26/16 08:40; Admin Dose 1 MG; Start 10/20/16 at 13:30 Epoetin Al (Epogen (Neserd)) 6,000 units MoWeFr@17 SC Last administered on 17:54; Admin Dose 6,000 UNITS; Start 10/22/16 at 17:00; Stop 10/27/16 at 16:59 Collagenase (Santyl) 1 applic DAILY TOP Last administered on 10/25/16 11:00; Admin Dose 1 APPLIC; Start 10/21/16 at 16:00 Collagenase (Santyl) 1 applic PRN PRN TOP WOUND CARE; Start 10/21/16 at 15:00 Pantoprazole (Protonix Tab) 40 mg BID@06,18 PO Last administered on 10/26/16 06:19; Admin Dose 40 MG; Start 10/23/16 at 18:00 Ondansetron HCl (Zofran Tab) 4 mg Q6H PRN PO NAUSEA AND/OR VOMITING Last administered on 10/23/16 16:17; Admin Dose 4 MG; Start 10/23/16 at 16:16 Magnesium Hydroxide (Milk Of Mag) 30 ml QHS PRN PO Constipation Last administered on 10/25/16 22:21; Admin Dose 30 ML; Start 10/25/16 at 22:00 JUSTIN MERINO Oct 26, 2016 12:21
[2016-10-26] MEDS ORDERED: CEFEPIME 1GM/50 ML (PMX) 50 ML IVPB SCH (12:30)
[2016-10-26 14:00] VITALS: BP 119/71; RESP 19
[2016-10-26] MEDS: CEFEPIME HCL 0.5 GM in SOD CHLORIDE 0.9% 100 ML IVPB SCH (14:40)
[2016-10-26] MEDS: LEVOFLOXACIN 250 MG TAB PO SCH (14:40)
[2016-10-26 14:55] LABS: CALCIUM 8.4 mg/dl (8.4-10.2); CREATININE 2.2 mg/dl (0.61-1.24); POTASSIUM 5.2 mmol/L (3.5-5.1)
--- NOTE | 2016-10-26 16:10 | PN ---
Date/Time of Note Date/Time of Note DATE: 10/26/16 TIME: 16:03 Assessment/Plan VTE Prophylaxis VTE Prophylaxis Intervention: other VTE Contraindication Reason: peripheral vascular disease Lines/Catheters IV Catheter Type (from Nrsg): Peripheral IV Urinary Cath still in place: No Assessment/Plan Problems: (1) Bilateral lower leg cellulitis Status: Acute Comment: on IV antibiotic (2) Diabetes mellitus type 2, noninsulin dependent Status: Chronic Comment: fair glycemic control (3) Essential hypertension Status: Chronic Comment: decent control (4) Acute kidney injury Status: Acute Comment: improved creatinine. Re-check level in am (5) Venous insufficiency of right leg Status: Chronic Comment: Per vascular surgery (6) Venous insufficiency of left lower extremity Status: Chronic Comment: per vascular surgery (7) Pleural effusion Comment: Awaiting cardiology consult. Refusing u/s guided thoracentesis at this time. Subjective 24 Hr Interval Summary Free Text/Dictation Patient concerned and refusing thoracentesis at this time. States minimally short of breath. Wants more information Exam/Review of Systems Vital Signs Vitals Vital Signs Date Time Temp Pulse Resp B/P Pulse Ox O2 Delivery O2 Flow Rate FiO2 10/26/16 14:00 98.3 19 119/71 96 10/26/16 08:00 96 10/23/16 21:00 Room Air Intake and Output 10/25/16 10/25/16 10/26/16 14:59 22:59 06:59 Intake Total 300 ml 1700 ml 960 ml Output Total 850 ml Balance 300 ml 1700 ml 110 ml Exam Constitutional: alert, oriented, well developed Eyes: EOMI, PERRL, nl conjunctiva Neck: supple Respiratory: clear to auscultation (anteriorly) Cardiovascular: irregular rhythm Gastrointestinal: soft Musculoskeletal: other (Bilateral lower extremities bandaged) Results Labs, vitals and POC glucose reviewed Result Diagram: 10/24/16 0622 10/26/16 1405 Results 24 hrs Laboratory Tests Test 10/25/16 17:22 10/25/16 21:36 10/26/16 08:02 10/26/16 11:49 Bedside Glucose 223 H 106 93 184 Test 10/26/16 14:05 Sodium Level 138 Potassium Level 5.2 H Chloride Level 104 Carbon Dioxide Level 23 Anion Gap 16 Blood Urea Nitrogen 29 H Creatinine 2.20 H Glucose Level 154 Calcium Level 8.4 Medications Medications Current Medications Docusate Sodium (Colace) 100 mg Q12H PRN PO CONSTIPATION Last administered on 18:38; Admin Dose 100 MG; Start 10/19/16 at 11:00 Zolpidem Tartrate (Ambien) 5 mg QHS PRN PO SLEEP; Start 10/19/16 at 11:00 Heparin Sodium (Porcine) 5000 unit 5,000 unit Q8 SC Last administered on 14:42; Admin Dose 5,000 UNIT; Start 10/19/16 at 14:00 Sodium Chloride (1/2 NS) 1,000 ml @ 50 mls/hr Q20H IV Last administered on 15:39; Admin Dose 50 MLS/HR; Start 10/19/16 at 14:00 Levothyroxine Sodium (Synthroid) 112 mcg DAILY@06 PO Last administered on 06:19; Admin Dose 112 MCG; Start 10/20/16 at 06:00 Metoprolol Succinate (Toprol Xl) 100 mg QHS PO Last administered on 10/25/16 21:38; Admin Dose 100 MG; Start 10/19/16 at 21:00 Allopurinol (Zyloprim) 100 mg QAM PO Last administered on 10/26/16 08:40; Admin Dose 100 MG; Start 10/20/16 at 09:00 Atorvastatin Calcium (Lipitor) 80 mg QHS PO Last administered on 10/25/16 21: 37; Admin Dose 80 MG; Start 10/19/16 at 21:00 Linagliptin (Tradjenta) 5 mg DAILY PO Last administered on 10/26/16 08:40; Admin Dose 5 MG; Start 10/20/16 at 09:00 Insulin Glargine (Lantus) 6 unit DAILY@20 SC Last administered on 10/25/16 21: 41; Admin Dose 6 UNIT; Start 10/19/16 at 20:00 Diagnostic Test (Pha) (Accu-Chek) 1 ea 02 XX Last administered on 10/20/16 02: 24; Admin Dose 1 EA; Start 10/20/16 at 02:00 Miscellaneous Information 1 ea NOTE XX ; Start 10/19/16 at 15:00 Glucose (Glutose) 15 gm Q15M PRN PO DECREASED GLUCOSE; Start 10/19/16 at 15:00 Glucose (Glutose) 22.5 gm Q15M PRN PO DECREASED GLUCOSE; Start 10/19/16 at 15: 00 Dextrose (D50w Syringe) 25 ml Q15M PRN IV DECREASED GLUCOSE; Start 10/19/16 at 15:00 Dextrose (D50w Syringe) 50 ml Q15M PRN IV DECREASED GLUCOSE; Start 10/19/16 at 15:00 Glucagon (Glucagen) 1 mg Q15M PRN IM DECREASED GLUCOSE; Start 10/19/16 at 15:00 Glucose (Glutose) 15 gm Q15M PRN BUCCAL DECREASED GLUCOSE; Start 10/19/16 at 15 :00 Acetaminophen/ Hydrocodone Bitart ([place] (5/325)) 1 tab Q6H PRN PO PAIN Last administered on 10/20/16 21:45; Admin Dose 1 TAB; Start 10/19/16 at 17:30 Acetaminophen/ Hydrocodone Bitart ([place] (5/325)) 2 tab Q6H PRN PO PAIN Last administered on 10/25/16 11:00; Admin Dose 2 TAB; Start 10/19/16 at 17:30 Folic Acid (Folic Acid) 1 mg DAILY PO Last administered on 10/26/16 08:40; Admin Dose 1 MG; Start 10/20/16 at 13:30 Epoetin Al (Epogen (Neserd)) 6,000 units MoWeFr@17 SC Last administered on 17:54; Admin Dose 6,000 UNITS; Start 10/22/16 at 17:00; Stop 10/27/16 at 16:59 Collagenase (Santyl) 1 applic DAILY TOP Last administered on 10/25/16 11:00; Admin Dose 1 APPLIC; Start 10/21/16 at 16:00 Collagenase (Santyl) 1 applic PRN PRN TOP WOUND CARE; Start 10/21/16 at 15:00 Pantoprazole (Protonix Tab) 40 mg BID@,18 PO Last administered on 10/26/16 06:19; Admin Dose 40 MG; Start 10/23/16 at 18:00 Ondansetron HCl (Zofran Tab) 4 mg Q6H PRN PO NAUSEA AND/OR VOMITING Last administered on 7/20/17at 16:17; Admin Dose 4 MG; Start 10/23/16 at 16:16 Magnesium Hydroxide (Milk Of Mag) 30 ml QHS PRN PO Constipation Last administered on 10/25/16 22:21; Admin Dose 30 ML; Start 10/25/16 at 22:00 Levofloxacin 250 mg 250 mg DAILY@06 PO Last administered on 10/26/16 14:40; Admin Dose 250 MG; Start 10/26/16 at 13:00 Cefepime HCl/ Sodium Chloride (Maxipime/NS) 100 ml @ 200 mls/hr Q24H IVPB Last administered on 10/26/16 14:40; Admin Dose 200 MLS/HR; Start 10/26/16 at 14:00 ANABELLE LIMA MD Oct 26, 2016 16:10
[2016-10-26 20:00] VITALS: BP 133/61; RESP 20
[2016-10-26] MEDS: INSULIN GLARGINE [LANtus] 3 ML PEN SC SCH (20:08)
[2016-10-26] MEDS: METOPROLOL (XL) 100 MG TAB PO SCH (21:09)
[2016-10-26] MEDS: ATORVASTATIN 80 MG TAB PO SCH (21:09)
[2016-10-26 22:14] VITALS: BP 129/69; PULSE 89
[2016-10-27] MEDS: ZOLPIDEM 5 MG TAB PO PRN (01:11)
[2016-10-27 02:00] VITALS: BP 125/74; RESP 21
[2016-10-27] MEDS: SOD CHLORIDE 0.45% 1,000 ML IV SCH ×3 (02:00→22:00)
[2016-10-27] MEDS: ACCU-CHEK XX SCH (02:00)
[2016-10-27] MEDS: LEVOFLOXACIN 250 MG TAB PO SCH (05:20)
[2016-10-27] MEDS: LEVOTHYROXINE 112 MCG TAB PO SCH (05:20)
[2016-10-27] MEDS: PANTOPRAZOLE (EC) 40 MG TAB PO SCH ×2 (05:20→17:57)
[2016-10-27] MEDS: HEPARIN 5,000 UNIT/0.5 ML VIAL SC SCH ×3 (05:20→22:00)
[2016-10-27 06:20] LABS: INR 1.2; PROTIME 15.3 Sec (12.2-14.2); PT RATIO 1.2
[2016-10-27 06:44] LABS: CALCIUM 8.5 mg/dl (8.4-10.2); CREATININE 2.23 mg/dl (0.61-1.24); POTASSIUM 5.3 mmol/L (3.5-5.1)
[2016-10-27] MEDS: INSULIN ASPART [NOVOLOG] 3 ML PEN SC SCH ×7 (07:30→21:00)
[2016-10-27 08:00] VITALS: BP_SYST 122; RESP 18
[2016-10-27] MEDS: FOLIC ACID 1 MG TAB PO SCH (08:48)
[2016-10-27] MEDS: COLLAGENASE 30 GM TUBE TOP SCH (08:49)
[2016-10-27] MEDS: ALLOPURINOL 100 MG TAB PO SCH (08:49)
[2016-10-27] MEDS: LINAGLIPTIN 5 MG TABLET PO SCH (08:49)
--- NOTE | 2016-10-27 13:22 | PN ---
Date/Time of Note Date/Time of Note DATE: 10/27/16 TIME: 13:19 Assessment/Plan VTE Prophylaxis VTE Prophylaxis Intervention: SCD's Lines/Catheters IV Catheter Type (from Nrsg): Peripheral IV Urinary Cath still in place: No Subjective 24 Hr Interval Summary Free Text/Dictation arf, slowly stabilizing, k is usually in the 5.1-4 range, good urine aoutput rt pleural effusion, rel nl echo, thoracentesis ordered, he is agreeable diabetes control is fair le edema, venous disease, legs wrapped, no edema now alert, lungs clear hr ok Exam/Review of Systems Vital Signs Vitals Vital Signs Date Time Temp Pulse Resp B/P Pulse Ox O2 Delivery O2 Flow Rate FiO2 10/27/16 08:00 97.7 81 18 122/ 95 10/23/16 21:00 Room Air Intake and Output 10/26/16 10/26/16 10/27/16 15:00 23:00 07:00 Intake Total 1510 ml 1020 ml Output Total 300 ml 1450 ml Balance 1210 ml -430 ml Results Result Diagram: 10/24/16 0622 10/27/16 0507 Results 24 hrs Laboratory Tests Test 10/26/16 14:05 10/26/16 17:33 10/26/16 20:07 10/26/16 21:08 Sodium Level 138 Potassium Level 5.2 H Chloride Level 104 Carbon Dioxide Level 23 Anion Gap 16 Blood Urea Nitrogen 29 H Creatinine 2.20 H Glucose Level 154 Calcium Level 8.4 Bedside Glucose 125 168 139 Test 10/27/16 05:07 10/27/16 07:53 10/27/16 11:45 Prothrombin Time 15.3 #H Prothrombin Time Ratio 1.2 INR International Normalized Ratio 1.20 Sodium Level 139 Potassium Level 5.3 H Chloride Level 107 Carbon Dioxide Level 23 Anion Gap 14 Blood Urea Nitrogen 29 H Creatinine 2.23 H Glucose Level 93 # Calcium Level 8.5 Bedside Glucose 119 132 Medications Medications Current Medications Docusate Sodium (Colace) 100 mg Q12H PRN PO CONSTIPATION Last administered on 18:38; Admin Dose 100 MG; Start 10/19/16 at 11:00 Zolpidem Tartrate (Ambien) 5 mg QHS PRN PO SLEEP Last administered on 01:11; Admin Dose 5 MG; Start 10/19/16 at 11:00 Heparin Sodium (Porcine) 5000 unit 5,000 unit Q8 SC Last administered on 05:20; Admin Dose 5,000 UNIT; Start 10/19/16 at 14:00 Sodium Chloride (1/2 NS) 1,000 ml @ 50 mls/hr Q20H IV Last administered on 15:39; Admin Dose 50 MLS/HR; Start 10/19/16 at 14:00 Levothyroxine Sodium (Synthroid) 112 mcg DAILY@06 PO Last administered on 05:20; Admin Dose 112 MCG; Start 10/20/16 at 06:00 Metoprolol Succinate (Toprol Xl) 100 mg QHS PO Last administered on 10/26/16 21:09; Admin Dose 100 MG; Start 10/19/16 at 21:00 Allopurinol (Zyloprim) 100 mg QAM PO Last administered on 10/27/16 08:49; Admin Dose 100 MG; Start 10/20/16 at 09:00 Atorvastatin Calcium (Lipitor) 80 mg QHS PO Last administered on 10/26/16 21: 09; Admin Dose 80 MG; Start 10/19/16 at 21:00 Linagliptin (Tradjenta) 5 mg DAILY PO Last administered on 10/27/16 08:49; Admin Dose 5 MG; Start 10/20/16 at 09:00 Insulin Glargine (Lantus) 6 unit DAILY@20 SC Last administered on 10/26/16 20: 08; Admin Dose 6 UNIT; Start 10/19/16 at 20:00 Diagnostic Test (Pha) (Accu-Chek) 1 ea 02 XX Last administered on 10/20/16 02: 24; Admin Dose 1 EA; Start 10/20/16 at 02:00 Miscellaneous Information 1 ea NOTE XX ; Start 10/19/16 at 15:00 Glucose (Glutose) 15 gm Q15M PRN PO DECREASED GLUCOSE; Start 10/19/16 at 15:00 Glucose (Glutose) 22.5 gm Q15M PRN PO DECREASED GLUCOSE; Start 10/19/16 at 15: 00 Dextrose (D50w Syringe) 25 ml Q15M PRN IV DECREASED GLUCOSE; Start 10/19/16 at 15:00 Dextrose (D50w Syringe) 50 ml Q15M PRN IV DECREASED GLUCOSE; Start 10/19/16 at 15:00 Glucagon (Glucagen) 1 mg Q15M PRN IM DECREASED GLUCOSE; Start 10/19/16 at 15:00 Glucose (Glutose) 15 gm Q15M PRN BUCCAL DECREASED GLUCOSE; Start 10/19/16 at 15 :00 Acetaminophen/ Hydrocodone Bitart ([place] (5/325)) 1 tab Q6H PRN PO PAIN Last administered on 10/20/16 21:45; Admin Dose 1 TAB; Start 10/19/16 at 17:30 Acetaminophen/ Hydrocodone Bitart ([place] (5/325)) 2 tab Q6H PRN PO PAIN Last administered on 10/25/16 11:00; Admin Dose 2 TAB; Start 10/19/16 at 17:30 Folic Acid (Folic Acid) 1 mg DAILY PO Last administered on 10/27/16 08:48; Admin Dose 1 MG; Start 10/20/16 at 13:30 Epoetin Al (Epogen (Neserd)) 6,000 units MoWeFr@17 SC Last administered on 17:54; Admin Dose 6,000 UNITS; Start 10/22/16 at 17:00; Stop 10/27/16 at 16:59 Collagenase (Santyl) 1 applic DAILY TOP Last administered on 10/27/16 08:49; Admin Dose 1 APPLIC; Start 10/21/16 at 16:00 Collagenase (Santyl) 1 applic PRN PRN TOP WOUND CARE; Start 10/21/16 at 15:00 Pantoprazole (Protonix Tab) 40 mg BID@,18 PO Last administered on 10/27/16 05:20; Admin Dose 40 MG; Start 10/23/16 at 18:00 Ondansetron HCl (Zofran Tab) 4 mg Q6H PRN PO NAUSEA AND/OR VOMITING Last administered on 10/23/16 16:17; Admin Dose 4 MG; Start 10/23/16 at 16:16 Magnesium Hydroxide (Milk Of Mag) 30 ml QHS PRN PO Constipation Last administered on 10/25/16 22:21; Admin Dose 30 ML; Start 10/25/16 at 22:00 Levofloxacin 250 mg 250 mg DAILY@06 PO Last administered on 10/27/16 05:20; Admin Dose 250 MG; Start 10/26/16 at 13:00 Cefepime HCl/ Sodium Chloride (Maxipime/NS) 100 ml @ 200 mls/hr Q24H IVPB Last administered on 10/26/16 14:40; Admin Dose 200 MLS/HR; Start 10/26/16 at 14:00 GROVER MATIAS MD Oct 27, 2016 13:21
[2016-10-27] MEDS: CEFEPIME HCL 0.5 GM in SOD CHLORIDE 0.9% 100 ML IVPB SCH (13:40)
[2016-10-27 14:00] VITALS: BP 132/65; RESP 18
--- NOTE | 2016-10-27 16:44 | CONS ---
Date/Time of Note Date/Time of Note DATE: 10/27/16 TIME: 16:40 Consult Date/Type/Reason Admit Date/Time Oct 19, 2016 at 10:45 Initial Consult Date 10/24/16 Type of Consultation: Pulmonary Ordering Provider: KASSIDY DIAMOND MD Subjective Patient doing okay today still has mild shortness of breath. Objective Vital Signs Date Time Temp Pulse Resp B/P Pulse Ox O2 Delivery O2 Flow Rate FiO2 10/27/16 14:00 98.0 87 18 132/65 95 10/23/16 21:00 Room Air Intake and Output 10/26/16 10/26/16 10/27/16 15:00 23:00 07:00 Intake Total 1510 ml 1020 ml Output Total 300 ml 1450 ml Balance 1210 ml -430 ml Exam GENERAL: Elderly gentleman comfortable at rest VITAL SIGNS: per chart NECK: Supple. No JVD or lymphadenopathy. CARDIAC EXAM: S1, S2. No added sounds or murmurs. CHEST: clear bilaterally, No added sounds, rales or wheezes ABDOMEN: Soft, nontender. No guarding or rebound. EXTREMITIES: No cyanosis, clubbing or edema. NEUROLOGIC: Generalized weakness. No focal deficits. Elderly gentleman Results/Medications Result Diagram: 10/24/16 0622 10/27/16 0507 Results 24 hrs Laboratory Tests Test 10/26/16 17:33 10/26/16 20:07 10/26/16 21:08 10/27/16 05:07 Bedside Glucose 125 168 139 Prothrombin Time 15.3 #H Prothrombin Time Ratio 1.2 INR International Normalized Ratio 1.20 Sodium Level 139 Potassium Level 5.3 H Chloride Level 107 Carbon Dioxide Level 23 Anion Gap 14 Blood Urea Nitrogen 29 H Creatinine 2.23 H Glucose Level 93 # Calcium Level 8.5 Test 10/27/16 07:53 10/27/16 11:45 Bedside Glucose 119 132 Medications Current Medications Docusate Sodium (Colace) 100 mg Q12H PRN PO CONSTIPATION Last administered on 18:38; Admin Dose 100 MG; Start 10/19/16 at 11:00 Zolpidem Tartrate (Ambien) 5 mg QHS PRN PO SLEEP Last administered on 01:11; Admin Dose 5 MG; Start 10/19/16 at 11:00 Heparin Sodium (Porcine) 5000 unit 5,000 unit Q8 SC Last administered on 05:20; Admin Dose 5,000 UNIT; Start 10/19/16 at 14:00 Sodium Chloride (1/2 NS) 1,000 ml @ 50 mls/hr Q20H IV Last administered on 13:40; Admin Dose 50 MLS/HR; Start 10/19/16 at 14:00 Levothyroxine Sodium (Synthroid) 112 mcg DAILY@06 PO Last administered on 05:20; Admin Dose 112 MCG; Start 10/20/16 at 06:00 Metoprolol Succinate (Toprol Xl) 100 mg QHS PO Last administered on 10/26/16 21:09; Admin Dose 100 MG; Start 10/19/16 at 21:00 Allopurinol (Zyloprim) 100 mg QAM PO Last administered on 10/27/16 08:49; Admin Dose 100 MG; Start 10/20/16 at 09:00 Atorvastatin Calcium (Lipitor) 80 mg QHS PO Last administered on 10/26/16 21: 09; Admin Dose 80 MG; Start 10/19/16 at 21:00 Linagliptin (Tradjenta) 5 mg DAILY PO Last administered on 10/27/16 08:49; Admin Dose 5 MG; Start 10/20/16 at 09:00 Insulin Glargine (Lantus) 6 unit DAILY@20 SC Last administered on 10/26/16 20: 08; Admin Dose 6 UNIT; Start 10/19/16 at 20:00 Diagnostic Test (Pha) (Accu-Chek) 1 ea 02 XX Last administered on 10/20/16 02: 24; Admin Dose 1 EA; Start 10/20/16 at 02:00 Miscellaneous Information 1 ea NOTE XX ; Start 10/19/16 at 15:00 Glucose (Glutose) 15 gm Q15M PRN PO DECREASED GLUCOSE; Start 10/19/16 at 15:00 Glucose (Glutose) 22.5 gm Q15M PRN PO DECREASED GLUCOSE; Start 10/19/16 at 15: 00 Dextrose (D50w Syringe) 25 ml Q15M PRN IV DECREASED GLUCOSE; Start 10/19/16 at 15:00 Dextrose (D50w Syringe) 50 ml Q15M PRN IV DECREASED GLUCOSE; Start 10/19/16 at 15:00 Glucagon (Glucagen) 1 mg Q15M PRN IM DECREASED GLUCOSE; Start 10/19/16 at 15:00 Glucose (Glutose) 15 gm Q15M PRN BUCCAL DECREASED GLUCOSE; Start 10/19/16 at 15 :00 Acetaminophen/ Hydrocodone Bitart ([place] (5/325)) 1 tab Q6H PRN PO PAIN Last administered on 10/20/16 21:45; Admin Dose 1 TAB; Start 10/19/16 at 17:30 Acetaminophen/ Hydrocodone Bitart ([place] (5/325)) 2 tab Q6H PRN PO PAIN Last administered on 10/25/16 11:00; Admin Dose 2 TAB; Start 10/19/16 at 17:30 Folic Acid (Folic Acid) 1 mg DAILY PO Last administered on 10/27/16 08:48; Admin Dose 1 MG; Start 10/20/16 at 13:30 Epoetin Al (Epogen (Neserd)) 6,000 units MoWeFr@17 SC Last administered on 17:54; Admin Dose 6,000 UNITS; Start 10/22/16 at 17:00; Stop 10/27/16 at 16:59 Collagenase (Santyl) 1 applic DAILY TOP Last administered on 10/27/16 08:49; Admin Dose 1 APPLIC; Start 10/21/16 at 16:00 Collagenase (Santyl) 1 applic PRN PRN TOP WOUND CARE; Start 10/21/16 at 15:00 Pantoprazole (Protonix Tab) 40 mg BID@,18 PO Last administered on 10/27/16 05:20; Admin Dose 40 MG; Start 10/23/16 at 18:00 Ondansetron HCl (Zofran Tab) 4 mg Q6H PRN PO NAUSEA AND/OR VOMITING Last administered on 10/23/16 16:17; Admin Dose 4 MG; Start 10/23/16 at 16:16 Magnesium Hydroxide (Milk Of Mag) 30 ml QHS PRN PO Constipation Last administered on 10/25/16 22:21; Admin Dose 30 ML; Start 10/25/16 at 22:00 Levofloxacin 250 mg 250 mg DAILY@06 PO Last administered on 10/27/16 05:20; Admin Dose 250 MG; Start 10/26/16 at 13:00 Cefepime HCl/ Sodium Chloride (Maxipime/NS) 100 ml @ 200 mls/hr Q24H IVPB Last administered on 10/27/16t 13:40; Admin Dose 200 MLS/HR; Start 10/26/16 at 14:00 Assessment/Plan Chief Complaint/Hosp Course Assessment 1. Hypoxemic respiratory failure secondary to pneumonia and/or pleural effusion 2. Chronic kidney disease 3. Peripheral vascular disease 4. Diabetes mellitus Plan 1. Thoracentesis scheduled. 2. Continue current antibiotics 3. Continue supplemental O2 4. Continue DVT and GI prophylaxis Problems: LISA REYES [facility], [facility] Oct 27, 2016 16:44
[2016-10-27] MEDS ORDERED: LIDOCAINE 1% (MPF) 5 ML VIAL ONE (17:35)
--- NOTE | 2016-10-27 17:42 | RADRPT ---
PROCEDURE: US guided right thoracentesis. CLINICAL INDICATION: Shortness of breath. Right pleural effusion. TECHNIQUE: Prior to the procedure, informed consent was obtained. The risks, benefits, and alternatives were e xplained to the patient or the patient's family, including but not limited to bleeding, infection, p ain, visceral or vascular damage, shock, pneumothorax, chest tube placement, air embolism, and . The patient or the patient's family understood the risks and the alternatives and wished to proce ed with the study. Informed written consent was obtained. A procedural pause was performed. The patient's name, date of , and procedure to be performed were verified. Ultrasound of the right hemithorax was performed in the axial and sagittal planes. A right pleural e ffusion is noted. Utilizing ultrasound guidance, optimal location for entry to the pleural cavity wa s ascertained. The overlying skin was prepped and draped in the usual sterile fashion. Approximate ly 10 ml of 1% Xylocaine was injected locally for pain control. Using ultrasound guidance, a 5-Fren Yueh catheter was introduced into the right pleural space without difficulty. Fluid was aspirated . COMPARISON: None. FINDINGS: Initial ultrasound demonstrates fluid in the right pleural space. Approximately 1.3 liters of serou s fluid was aspirated and sent to the laboratory. IMPRESSION: 1. Satisfactory ultrasound-guided right thoracentesis. RPTAT: QQ .Moses Monk MD, Date Time Electronically viewed and signed by .Moses Monk MD, on 10/27/2016 17:42 .R/
--- NOTE | 2016-10-27 17:56 | RADRPT ---
PROCEDURE: XR Chest. CLINICAL INDICATION: Shortness of breath. Post right thoracentesis. TECHNIQUE: Single frontal view. COMPARISON: 10/24/2016. FINDINGS: Previously noted right pleural effusion is now much smaller. There is mild atelectasis at the lung bases. The lungs are otherwise clear. The heart is enlarged. There is calcification in the aorta consistent with atherosclerosis. There is no left pleural effus ion. There is no pneumothorax. IMPRESSION: 1. Much smaller right pleural effusion and improved right basilar atelectasis. 2. No pneumothorax following right thoracentesis. RPTAT: QQ .Moses Monk MD, MD Date Time Electronically viewed and signed by .Moses Monk MD, MD on 10/27/2016 17:56 .R/
[2016-10-27 18:43] LABS: FLD MN % (M) 72 %; FLD PMN % (M) 28 %
[2016-10-27 18:45] LABS: FLD CLARITY CLOUDY; FLD COLOR ORANGE; FLD RBC 4000 /uL; FLD TYPE PLEURAL; FLD WBC 162000 /cmm
[2016-10-27 18:58] LABS: FLUID GLUCOSE 122 mg/dl; FLUID TOTAL PROTEIN < 2.0 g/dl
[2016-10-27 18:59] LABS: FLUID TYPE PLEURAL
[2016-10-27] MEDS: INSULIN GLARGINE [LANtus] 3 ML PEN SC SCH (20:00)
[2016-10-27 20:16] VITALS: BP 125/54; RESP 18
[2016-10-27] MEDS: METOPROLOL (XL) 100 MG TAB PO SCH (21:00)
[2016-10-27] MEDS: ATORVASTATIN 80 MG TAB PO SCH (21:00)
[2016-10-27 22:19] VITALS: BP 114/67; PULSE 109
[2016-10-27 23:45] VITALS: BP 127/59; PULSE 79
[2016-10-28] MEDS: ACCU-CHEK XX SCH (02:00)
[2016-10-28 02:05] VITALS: BP 125/61; RESP 18
[2016-10-28] MEDS: HEPARIN 5,000 UNIT/0.5 ML VIAL SC SCH ×3 (05:35→21:40)
[2016-10-28] MEDS: LEVOTHYROXINE 112 MCG TAB PO SCH (05:35)
[2016-10-28] MEDS: LEVOFLOXACIN 250 MG TAB PO SCH (05:35)
[2016-10-28] MEDS: PANTOPRAZOLE (EC) 40 MG TAB PO SCH ×2 (05:35→17:20)
[2016-10-28 06:11] LABS: BASOPHILS % 0.6 % (0.0-2.0); EOSINOPHILS # 0.1 10^3/ul (0.0-0.5); EOSINOPHILS % 1.7 % (0.0-7.0); HEMATOCRIT 26.5 % (42.0-52.0); HEMOGLOBIN 8.4 g/dl (14.0-18.0); MEAN CORPUSCULAR HEMOGLOBIN 35.1 pg (29.0-33.0); MEAN CORPUSCULAR HGB CONC 31.7 g/dl (32.0-37.0); MEAN CORPUSCULAR VOLUME 110.9 fl (82.0-101.0); MEAN PLATELET VOLUME 9.6 fl (7.4-10.4); MONOCYTE # 0.7 10^3/ul (0.3-0.9); MONOCYTES % 12.5 % (0.0-11.0); NEUTROPHIL # 3.5 10^3/ul (1.6-7.5); NEUTROPHILS % 65.6 % (39.0-77.0); PLATELET COUNT 159 10^3/UL (140-415); RED BLOOD COUNT 2.39 10^6/ul (4.70-6.10); RED CELL DISTRIBUTION WIDTH 17.8 % (11.5-14.5); WHITE BLOOD COUNT 5.3 10^3/ul (4.8-10.8)
[2016-10-28 06:55] LABS: ALBUMIN 2.7 g/dl (3.3-4.9); ALBUMIN/GLOBULIN RATIO 0.93; BILIRUBIN,INDIRECT 0.5 mg/dl (0-1.1); BILIRUBIN,TOTAL 0.5 mg/dl (0.2-1.3); CALCIUM 8.9 mg/dl (8.4-10.2); CREATININE 2.16 mg/dl (0.61-1.24); POTASSIUM 5.2 mmol/L (3.5-5.1); TOTAL PROTEIN 5.6 g/dl (6.1-8.1)
[2016-10-28] MEDS: INSULIN ASPART [NOVOLOG] 3 ML PEN SC SCH ×7 (07:30→21:00)
[2016-10-28 08:11] VITALS: BP 118/60; RESP 19
[2016-10-28] MEDS: ALLOPURINOL 100 MG TAB PO SCH (08:47)
[2016-10-28] MEDS: LINAGLIPTIN 5 MG TABLET PO SCH (08:48)
[2016-10-28] MEDS: FOLIC ACID 1 MG TAB PO SCH (08:48)
[2016-10-28] MEDS: COLLAGENASE 30 GM TUBE TOP SCH (08:51)
--- NOTE | 2016-10-28 09:50 | CONS ---
Date/Time of Note Date/Time of Note DATE: 10/28/16 TIME: 09:49 Assessment/Plan Assessment/Plan Additional Assessment/Plan Assessment recommendations; 1. Patient admitted with mild CHF as well as bilateral lower lobe pneumonia with bilateral pleural effusions, status post right thoracentesis yesterday 1.3 L of fluid was removed. 2. History of diabetes. 3. History of hypertension. 4. Mitral regurgitation. 5. Renal insufficiency, likely diuretic induced with interval improvement. Continue current treatment. Consultation Date/Type/Reason Admit Date/Time Oct 19, 2016 at 10:45 Initial Consult Date 10/24/16 Type of Consultation: Pulmonary Referring Provider: KASSIDY DIAMOND MD 24 HR Interval Summary Free Text/Dictation Patient condition stable. Denies any shortness of breath, chest pain. General exam; elderly male, awake alert currently in no distress. Exam/Review of Systems Vital Signs Vitals Vital Signs Date Time Temp Pulse Resp B/P Pulse Ox O2 Delivery O2 Flow Rate FiO2 10/28/16 08:11 97.6 75 19 118/60 100 Intake and Output 10/27/16 10/27/16 10/28/16 14:59 22:59 06:59 Intake Total 600 ml 1560 ml 980 ml Output Total 1050 ml Balance 600 ml 1560 ml -70 ml Exam HEENT exam; supple neck, no JVD. No lymphadenopathy. Midline trachea. No thyromegaly. Pharynx is clear. Chest exam; clear to auscultation. S1-S2 audible, no murmurs. Regular rhythm. Abdomen exam; soft, no organomegaly. Bowel sounds audible. Extremity exam; trace lower extremity peripheral edema. ANIMATION ARTIST exam; no focal deficit. Results Result Diagram: 10/28/16 0543 10/28/16 0543 Results 24 hrs Laboratory Tests Test 10/27/16 11:45 10/27/16 17:10 10/27/16 17:54 10/27/16 22:17 Bedside Glucose 132 115 164 Body Fluid Type PLEURAL Body Fluid Volume 1000.0 Body Fluid Color ORANGE Body Fluid Appearance CLOUDY Body Fluid WBC 047593 Body Fluid RBC (Auto) 4000 Body Fluid Polynuclear WBCs 28 Body Fluid Polynuclear WBCs (%) 28.0 Body Fluid Mononuclear WBCs 72 Body Fluid Mononuclear Cells % Auto 72.0 Body Fluid Glucose 122 Body Fluid Total Protein < 2.0 Test 10/28/16 05:43 10/28/16 08:05 White Blood Count 5.3 # Red Blood Count 2.39 L Hemoglobin 8.4 L Hematocrit 26.5 L Mean Corpuscular Volume 110.9 H Mean Corpuscular Hemoglobin 35.1 H Mean Corpuscular Hemoglobin Concent 31.7 L Red Cell Distribution Width 17.8 H Platelet Count 159 # Mean Platelet Volume 9.6 Neutrophils % 65.6 Lymphocytes % 19.0 Monocytes % 12.5 H Eosinophils % 1.7 Basophils % 0.6 Nucleated Red Blood Cells % 0.0 Neutrophils # 3.5 Lymphocytes # 1.0 Monocytes # 0.7 Eosinophils # 0.1 Basophils # 0.0 Nucleated Red Blood Cells # 0.0 Sodium Level 140 Potassium Level 5.2 H Chloride Level 105 Carbon Dioxide Level 24 Anion Gap 16 Blood Urea Nitrogen 31 H Creatinine 2.16 H Glucose Level 108 Calcium Level 8.9 Total Bilirubin 0.5 Direct Bilirubin 0.00 Indirect Bilirubin 0.5 Aspartate Amino Transf (AST/SGOT) 103 H Alanine Aminotransferase (ALT/SGPT) 28 Alkaline Phosphatase 101 Total Protein 5.6 L Albumin 2.7 L Globulin 2.90 Albumin/Globulin Ratio 0.93 Bedside Glucose 99 Medications Medications Current Medications Docusate Sodium (Colace) 100 mg Q12H PRN PO CONSTIPATION Last administered on 18:38; Admin Dose 100 MG; Start 10/19/16 at 11:00 Zolpidem Tartrate (Ambien) 5 mg QHS PRN PO SLEEP Last administered on 01:11; Admin Dose 5 MG; Start 10/19/16 at 11:00 Heparin Sodium (Porcine) 5000 unit 5,000 unit Q8 SC Last administered on 05:35; Admin Dose 5,000 UNIT; Start 10/19/16 at 14:00 Sodium Chloride (1/2 NS) 1,000 ml @ 50 mls/hr Q20H IV Last administered on 13:40; Admin Dose 50 MLS/HR; Start 10/19/16 at 14:00 Levothyroxine Sodium (Synthroid) 112 mcg DAILY@06 PO Last administered on 05:35; Admin Dose 112 MCG; Start 10/20/16 at 06:00 Metoprolol Succinate (Toprol Xl) 100 mg QHS PO Last administered on 10/27/16 21:00; Admin Dose 100 MG; Start 10/19/16 at 21:00 Allopurinol (Zyloprim) 100 mg QAM PO Last administered on 10/28/16 08:47; Admin Dose 100 MG; Start 10/20/16 at 09:00 Atorvastatin Calcium (Lipitor) 80 mg QHS PO Last administered on 10/27/16 21: 00; Admin Dose 80 MG; Start 10/19/16 at 21:00 Linagliptin (Tradjenta) 5 mg DAILY PO Last administered on 10/28/16 08:48; Admin Dose 5 MG; Start 10/20/16 at 09:00 Insulin Glargine (Lantus) 6 unit DAILY@20 SC Last administered on 10/27/16 20: 00; Admin Dose 6 UNIT; Start 10/19/16 at 20:00 Diagnostic Test (Pha) (Accu-Chek) 1 ea 02 XX Last administered on 10/20/16 02: 24; Admin Dose 1 EA; Start 10/20/16 at 02:00 Miscellaneous Information 1 ea NOTE XX ; Start 10/19/16 at 15:00 Glucose (Glutose) 15 gm Q15M PRN PO DECREASED GLUCOSE; Start 10/19/16 at 15:00 Glucose (Glutose) 22.5 gm Q15M PRN PO DECREASED GLUCOSE; Start 10/19/16 at 15: 00 Dextrose (D50w Syringe) 25 ml Q15M PRN IV DECREASED GLUCOSE; Start 10/19/16 at 15:00 Dextrose (D50w Syringe) 50 ml Q15M PRN IV DECREASED GLUCOSE; Start 10/19/16 at 15:00 Glucagon (Glucagen) 1 mg Q15M PRN IM DECREASED GLUCOSE; Start 10/19/16 at 15:00 Glucose (Glutose) 15 gm Q15M PRN BUCCAL DECREASED GLUCOSE; Start 10/19/16 at 15 :00 Acetaminophen/ Hydrocodone Bitart ([place] (5/325)) 1 tab Q6H PRN PO PAIN Last administered on 10/20/16 21:45; Admin Dose 1 TAB; Start 10/19/16 at 17:30 Acetaminophen/ Hydrocodone Bitart ([place] (5/325)) 2 tab Q6H PRN PO PAIN Last administered on 10/25/16 11:00; Admin Dose 2 TAB; Start 10/19/16 at 17:30 Folic Acid (Folic Acid) 1 mg DAILY PO Last administered on 10/28/16 08:48; Admin Dose 1 MG; Start 10/20/16 at 13:30 Collagenase (Santyl) 1 applic DAILY TOP Last administered on 10/28/16 08:51; Admin Dose 1 APPLIC; Start 10/21/16 at 16:00 Collagenase (Santyl) 1 applic PRN PRN TOP WOUND CARE; Start 10/21/16 at 15:00 Pantoprazole (Protonix Tab) 40 mg BID@06,18 PO Last administered on 10/28/16 05:35; Admin Dose 40 MG; Start 10/23/16 at 18:00 Ondansetron HCl (Zofran Tab) 4 mg Q6H PRN PO NAUSEA AND/OR VOMITING Last administered on 10/23/16 16:17; Admin Dose 4 MG; Start 10/23/16 at 16:16 Magnesium Hydroxide (Milk Of Mag) 30 ml QHS PRN PO Constipation Last administered on 10/25/16 22:21; Admin Dose 30 ML; Start 10/25/16 at 22:00 Levofloxacin 250 mg 250 mg DAILY@06 PO Last administered on 10/28/16 05:35; Admin Dose 250 MG; Start 10/26/16 at 13:00 Cefepime HCl/ Sodium Chloride (Maxipime/NS) 100 ml @ 200 mls/hr Q24H IVPB Last administered on 10/27/16 13:40; Admin Dose 200 MLS/HR; Start 10/26/16 at 14:00 JUSTIN MERINO Oct 28, 2016 09:50
--- NOTE | 2016-10-28 12:28 | PN ---
Date/Time of Note Date/Time of Note DATE: 10/28/16 TIME: 12:26 Assessment/Plan Lines/Catheters IV Catheter Type (from [facility]): Peripheral IV Daniels in Place (from [facility]): No Assessment/Plan Chief Complaint/Hosp Course -Bilateral lower extremity atherosclerosis: The patient may have infrainguinal disease as were we were unable to palpate the pedal pulses. At the moment, does not seem to be of any significant flow-limiting stenosis. We will continue to monitor his vascular surveillance from that aspect. -Bilateral lower extremity venous insufficiency and venous stasis ulcers (CEAP classification 6): It seems the patient has a longstanding history of venous stasis ulcers that he has been managing on his own. Continue with a two layer compression dressing. This will allow to slowly transition to three-layer compression dressings. -Further would recommend applying collagen-based dressings with silver alginate , Melgisorb silver. -Optimize vascular: (blood pressure meds, diet, nutrition, exercise, sugar control, antiplatelets). -Will schedule the patient for a venous reflux study once he has been discharged as this study is only done in outpatient setting. and will followup with patient at [facility] -Discussed findings and plan of management with the patient and he understands. -Thank you for allowing us to partake in the care of your patient. Please call with any questions. Problems: Subjective 24 Hr Interval Summary no new vascular events overnight, tolerating the dressing changes Exam/Review of Systems Vital Signs Vitals Vital Signs Date Time Temp Pulse Resp B/P Pulse Ox O2 Delivery O2 Flow Rate FiO2 10/28/16 08:11 97.6 75 19 118/60 100 Intake and Output 10/27/16 10/27/16 10/28/16 15:00 23:00 07:00 Intake Total 700 ml 1460 ml 980 ml Output Total 1050 ml Balance 700 ml 1460 ml -70 ml Exam Free Text/Dictation GENERAL: Alert, oriented x3. LUNGS: Clear to auscultation bilaterally CARDIOVASCULAR: S1, S2 present ABDOMEN: Soft, nontender, nondistended. Bowel sounds positive. Truncal obesity. EXTREMITIES: -Right lower extremity: Palpable femoral pulse. Unable to palpate pedal pulse secondary to edema & dressing. Motor and sensory intact. Capillary refill 3 seconds. Dressing intact -Left lower extremity: Palpable femoral pulse, unable to palpate the pedal pulse secondary to edema & dressing. Motor and sensory intact. Capillary refill 3 seconds. Dressing intact Results Result Diagram: 10/28/16 0543 10/28/16 0543 GIULIA PUENTE MD Oct 28, 2016 12:28
[2016-10-28] MEDS: CEFEPIME HCL 0.5 GM in SOD CHLORIDE 0.9% 100 ML IVPB SCH (13:27)
--- NOTE | 2016-10-28 13:30 | RADRPT ---
PROCEDURE: XR Chest. CLINICAL INDICATION: pna chf TECHNIQUE: Single frontal view of the chest was obtained COMPARISON: Chest x-ray 10/27/2016 FINDINGS: The cardiac silhouette remains significantly enlarged. Aortic atherosclerotic disease is noted. There is interval increased hazy opacity in the right lung base which may represent interval slight increase in small right pleural effusion, atelectasis, and / or consolidation. Right mid and lung a nd left basilar atelectasis has not changed significantly. No pneumothorax is identified. There is dextroscoliosis of the thoracic spine. IMPRESSION: Interval slight increase in right basilar hazy opacity which may represent interval slight increase in small right pleural effusion, or worsening atelectasis, and / or consolidation. No other signific ant change compared to prior study. RPTAT: PP Physician Miya Date Time Electronically viewed and signed by Bere Menon Physician on 10/28/2016 13:30 KAYLA/
[2016-10-28 15:09] VITALS: BP 119/73; RESP 16
[2016-10-28] MEDS: SOD CHLORIDE 0.45% 1,000 ML IV SCH ×2 (17:22→21:45)
--- NOTE | 2016-10-28 19:37 | PN ---
Date/Time of Note Date/Time of Note DATE: 10/28/16 TIME: 19:32 Assessment/Plan VTE Prophylaxis VTE Prophylaxis Intervention: contraindicated Lines/Catheters IV [facility] Type (from [facility]): Peripheral IV Urinary Cath still in place: No Assessment/Plan Chief Complaint/Hosp Course Right renal subcapsular hematoma status post right extracorporeal shockwave lithotripsy on September 24, 2016. Serum creatinine did go up to 4.59 and then has come down to 2.16 His left kidney is smaller than the right kidney, the right renal subcapsular hematoma will gradually subside and renal function will gradually continue to improve. There is no need for any surgical intervention. We will keep the scrotum elevated on a towel all the time because of the scrotal swelling. Problems: Subjective 24 Hr Interval Summary Constitutional: other (Patient states that he is feeling much better) ENT: no complaints Respiratory: no complaints Cardiovascular: no complaints, No chest pain Gastrointestinal: No nausea, No vomiting Genitourinary: other (Penoscrotal swelling, urine is clear and voiding easily) Musculoskeletal: no complaints Skin: other (Lower extremities cellulitis, his lower extremities are wrapped) Neurologic: no complaints Endocrine: no complaints Psychological: no complaints Immunologic: no complaints Exam/Review of Systems Vital Signs Vitals Vital Signs Date Time Temp Pulse Resp B/P Pulse Ox O2 Delivery O2 Flow Rate FiO2 10/28/16 15:09 97.8 99 16 119/73 97 Intake and Output 10/27/16 10/27/16 10/28/16 15:00 23:00 07:00 Intake Total 700 ml 1460 ml 980 ml Output Total 1050 ml Balance 700 ml 1460 ml -70 ml Exam Constitutional: alert, oriented Psych: no complaints Head: normocephalic Eyes: nl conjunctiva ENMT: nl external ears & nose Neck: non-tender, supple Respiratory: normal air movement Gastrointestinal: other (Some edema in the lower abdomen), soft Genitourinary - Male: other (Penis and scrotum are swollen, he is voiding clear urine and his renal function has been improving) Extremities: No calf tenderness Skin: other (Cellulitis of lower extremities) Results Result Diagram: 10/28/16 0543 10/28/16 0543 Results 24 hrs Laboratory Tests Test 10/27/16 22:17 10/28/16 05:43 10/28/16 08:05 10/28/16 11:34 Bedside Glucose 164 99 138 White Blood Count 5.3 # Red Blood Count 2.39 L Hemoglobin 8.4 L Hematocrit 26.5 L Mean Corpuscular Volume 110.9 H Mean Corpuscular Hemoglobin 35.1 H Mean Corpuscular Hemoglobin Concent 31.7 L Red Cell Distribution Width 17.8 H Platelet Count 159 # Mean Platelet Volume 9.6 Neutrophils % 65.6 Lymphocytes % 19.0 Monocytes % 12.5 H Eosinophils % 1.7 Basophils % 0.6 Nucleated Red Blood Cells % 0.0 Neutrophils # 3.5 Lymphocytes # 1.0 Monocytes # 0.7 Eosinophils # 0.1 Basophils # 0.0 Nucleated Red Blood Cells # 0.0 Sodium Level 140 Potassium Level 5.2 H Chloride Level 105 Carbon Dioxide Level 24 Anion Gap 16 Blood Urea Nitrogen 31 H Creatinine 2.16 H Glucose Level 108 Calcium Level 8.9 Total Bilirubin 0.5 Direct Bilirubin 0.00 Indirect Bilirubin 0.5 Aspartate Amino Transf (AST/SGOT) 103 H Alanine Aminotransferase (ALT/SGPT) 28 Alkaline Phosphatase 101 Total Protein 5.6 L Albumin 2.7 L Globulin 2.90 Albumin/Globulin Ratio 0.93 Test 10/28/16 17:15 Bedside Glucose 124 Medications Medications Current Medications Docusate Sodium (Colace) 100 mg Q12H PRN PO CONSTIPATION Last administered on 18:38; Admin Dose 100 MG; Start 10/19/16 at 11:00 Zolpidem Tartrate (Ambien) 5 mg QHS PRN PO SLEEP Last administered on 01:11; Admin Dose 5 MG; Start 10/19/16 at 11:00 Heparin Sodium (Porcine) 5000 unit 5,000 unit Q8 SC Last administered on 13:25; Admin Dose 5,000 UNIT; Start 10/19/16 at 14:00 Sodium Chloride (1/2 NS) 1,000 ml @ 50 mls/hr Q20H IV Last administered on 13:40; Admin Dose 50 MLS/HR; Start 10/19/16 at 14:00 Levothyroxine Sodium (Synthroid) 112 mcg DAILY@06 PO Last administered on 05:35; Admin Dose 112 MCG; Start 10/20/16 at 06:00 Metoprolol Succinate (Toprol Xl) 100 mg QHS PO Last administered on 10/27/16 21:00; Admin Dose 100 MG; Start 10/19/16 at 21:00 Allopurinol (Zyloprim) 100 mg QAM PO Last administered on 10/28/16 08:47; Admin Dose 100 MG; Start 10/20/16 at 09:00 Atorvastatin Calcium (Lipitor) 80 mg QHS PO Last administered on 10/27/16 21: 00; Admin Dose 80 MG; Start 10/19/16 at 21:00 Linagliptin (Tradjenta) 5 mg DAILY PO Last administered on 10/28/16 08:48; Admin Dose 5 MG; Start 10/20/16 at 09:00 Insulin Glargine (Lantus) 6 unit DAILY@20 SC Last administered on 10/27/16 20: 00; Admin Dose 6 UNIT; Start 10/19/16 at 20:00 Diagnostic Test (Pha) (Accu-Chek) 1 ea 02 XX Last administered on 10/20/16 02: 24; Admin Dose 1 EA; Start 10/20/16 at 02:00 Miscellaneous Information 1 ea NOTE XX ; Start 10/19/16 at 15:00 Glucose (Glutose) 15 gm Q15M PRN PO DECREASED GLUCOSE; Start 10/19/16 at 15:00 Glucose (Glutose) 22.5 gm Q15M PRN PO DECREASED GLUCOSE; Start 10/19/16 at 15: 00 Dextrose (D50w Syringe) 25 ml Q15M PRN IV DECREASED GLUCOSE; Start 10/19/16 at 15:00 Dextrose (D50w Syringe) 50 ml Q15M PRN IV DECREASED GLUCOSE; Start 10/19/16 at 15:00 Glucagon (Glucagen) 1 mg Q15M PRN IM DECREASED GLUCOSE; Start 10/19/16 at 15:00 Glucose (Glutose) 15 gm Q15M PRN BUCCAL DECREASED GLUCOSE; Start 10/19/16 at 15 :00 Acetaminophen/ Hydrocodone Bitart ([place] (5/325)) 1 tab Q6H PRN PO PAIN Last administered on 10/20/16 21:45; Admin Dose 1 TAB; Start 10/19/16 at 17:30 Acetaminophen/ Hydrocodone Bitart ([place] (5/325)) 2 tab Q6H PRN PO PAIN Last administered on 10/25/16 11:00; Admin Dose 2 TAB; Start 10/19/16 at 17:30 Folic Acid (Folic Acid) 1 mg DAILY PO Last administered on 10/28/16 08:48; Admin Dose 1 MG; Start 10/20/16 at 13:30 Collagenase (Santyl) 1 applic DAILY TOP Last administered on 10/28/16 08:51; Admin Dose 1 APPLIC; Start 10/21/16 at 16:00 Collagenase (Santyl) 1 applic PRN PRN TOP WOUND CARE; Start 10/21/16 at 15:00 Pantoprazole (Protonix Tab) 40 mg BID@06,18 PO Last administered on 10/28/16 17:20; Admin Dose 40 MG; Start 10/23/16 at 18:00 Ondansetron HCl (Zofran Tab) 4 mg Q6H PRN PO NAUSEA AND/OR VOMITING Last administered on 10/23/16 16:17; Admin Dose 4 MG; Start 10/23/16 at 16:16 Magnesium Hydroxide (Milk Of Mag) 30 ml QHS PRN PO Constipation Last administered on 10/25/16 22:21; Admin Dose 30 ML; Start 10/25/16 at 22:00 Levofloxacin 250 mg 250 mg DAILY@06 PO Last administered on 10/28/16 05:35; Admin Dose 250 MG; Start 10/26/16 at 13:00 Cefepime HCl/ Sodium Chloride (Maxipime/NS) 100 ml @ 200 mls/hr Q24H IVPB Last administered on 10/28/16 13:27; Admin Dose 200 MLS/HR; Start 10/26/16 at 14:00 TINO ALLISON MD Oct 28, 2016 19:37
[2016-10-28 20:00] VITALS: BP 111/64; RESP 19
[2016-10-28] MEDS: INSULIN GLARGINE [LANtus] 3 ML PEN SC SCH (20:56)
[2016-10-28] MEDS: METOPROLOL (XL) 100 MG TAB PO SCH (20:57)
[2016-10-28] MEDS: ATORVASTATIN 80 MG TAB PO SCH (20:57)
--- NOTE | 2016-10-28 22:23 | PN ---
Date/Time of Note Date/Time of Note DATE: 10/28/16 TIME: 22:18 Assessment/Plan VTE Prophylaxis VTE Prophylaxis Intervention: heparin Lines/Catheters [facility]from [facility] Peripheral IV Urinary Cath still in place: No Assessment/Plan Problems: (1) Pleural effusion Status: Resolved Comment: S/p thoracentesis. Monitor for recollection in future. (2) Venous insufficiency of right leg Status: Chronic Comment: Per vascular no intervention at this time (3) Venous insufficiency of left lower extremity Status: Chronic Comment: Per vascular no intervention at this time (4) Chronic atrial fibrillation Status: Chronic Comment: Stable. Cards following (5) Chronic kidney disease, stage II (mild) Status: Chronic Comment: CKD stable. Acute portion resolved. Likely ready for d/c tomorrow. (6) Hypothyroidism (acquired) Status: Chronic Comment: Cont. LT4 (7) Essential hypertension Status: Chronic Comment: Good BP control. Cont. BP meds. 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 Comment: Doing well w/ low-dose MDI and linagliptin Subjective 24 Hr Interval Summary Constitutional: improved, no complaints Respiratory: no complaints Cardiovascular: no complaints Gastrointestinal: no complaints Genitourinary: no complaints Musculoskeletal: no complaints Neurologic: no complaints Exam/Review of Systems Vital Signs Vitals VS - Last 72 Hours, by Label Date Time Temp Pulse Resp B/P Pulse Ox O2 Delivery O2 Flow Rate FiO2 10/28/16 20:00 97.7 82 19 111/64 97 10/28/16 15:09 97.8 99 16 119/73 97 10/28/16 08:11 97.6 75 19 118/60 100 10/28/16 02:05 98.0 80 18 125/61 99 10/27/16 23:45 79 127/59 10/27/16 22:19 109 114/67 10/27/16 20:16 97.9 80 18 125/54 91 10/27/16 14:00 98.0 87 18 132/65 95 10/27/16 08:00 97.7 81 18 122/ 95 10/27/16 02:00 97.8 85 21 125/74 94 10/26/16 22:14 89 129/69 10/26/16 20:00 98.4 96 20 133/61 95 10/26/16 14:00 98.3 19 119/71 96 10/26/16 08:00 97.7 96 20 128/78 95 10/26/16 02:00 97.9 80 20 135/74 99 Vital Signs Date Time Temp Pulse Resp B/P Pulse Ox O2 Delivery O2 Flow Rate FiO2 10/28/16 20:00 97.7 82 19 111/64 97 Intake and Output 10/27/16 10/27/16 10/28/16 15:00 23:00 07:00 Intake Total 700 ml 1460 ml 980 ml Output Total 1050 ml Balance 700 ml 1460 ml -70 ml Exam Constitutional: alert, oriented, well developed Psych: nl mood/affect, no complaints Respiratory: clear to auscultation, normal air movement Cardiovascular: nl pulses, regular rate and rhythm, No edema (BLE wrapped extensively), No murmurs/extra sounds, No rub Gastrointestinal: nl liver, spleen, non-tender, soft, No bowel sounds, No mass, No rebound or guarding Musculoskeletal: nl extremities to inspection Extremities: normal pulses, No clubbing, No cyanosis, No edema (BLE wrapped extensively) Neurological: [employer] II-XII intact, nl mental status, nl speech, nl strength Additional Comments Bedside Glucose - 72 Hours Test 10/26/16 08:02 10/26/16 11:49 10/26/16 17:33 10/26/16 20:07 Bedside Glucose 93mg/dL (70-220) 184mg/dL (70-220) 125mg/dL (70-220) 168mg/dL (70-220) Test 10/26/16 21:08 10/27/16 07:53 10/27/16 11:45 10/27/16 17:54 Bedside Glucose 139mg/dL (70-220) 119mg/dL (70-220) 132mg/dL (70-220) 115mg/dL (70-220) Test 10/27/16 22:17 10/28/16 08:05 10/28/16 11:34 10/28/16 17:15 Bedside Glucose 164mg/dL (70-220) 99mg/dL (70-220) 138mg/dL (70-220) 124mg/dL (70-220) Test 10/28/16 20:54 Bedside Glucose 143mg/dL (70-220) Results Result Diagram: 10/28/16 0543 10/28/16 0543 Results 24 hrs Laboratory Tests Test 10/28/16 05:43 10/28/16 08:05 10/28/16 11:34 10/28/16 17:15 White Blood Count 5.3 # Red Blood Count 2.39 L Hemoglobin 8.4 L Hematocrit 26.5 L Mean Corpuscular Volume 110.9 H Mean Corpuscular Hemoglobin 35.1 H Mean Corpuscular Hemoglobin Concent 31.7 L Red Cell Distribution Width 17.8 H Platelet Count 159 # Mean Platelet Volume 9.6 Neutrophils % 65.6 Lymphocytes % 19.0 Monocytes % 12.5 H Eosinophils % 1.7 Basophils % 0.6 Nucleated Red Blood Cells % 0.0 Neutrophils # 3.5 Lymphocytes # 1.0 Monocytes # 0.7 Eosinophils # 0.1 Basophils # 0.0 Nucleated Red Blood Cells # 0.0 Sodium Level 140 Potassium Level 5.2 H Chloride Level 105 Carbon Dioxide Level 24 Anion Gap 16 Blood Urea Nitrogen 31 H Creatinine 2.16 H Glucose Level 108 Calcium Level 8.9 Total Bilirubin 0.5 Direct Bilirubin 0.00 Indirect Bilirubin 0.5 Aspartate Amino Transf (AST/SGOT) 103 H Alanine Aminotransferase (ALT/SGPT) 28 Alkaline Phosphatase 101 Total Protein 5.6 L Albumin 2.7 L Globulin 2.90 Albumin/Globulin Ratio 0.93 Bedside Glucose 99 138 124 Test 10/28/16 20:54 Bedside Glucose 143 Medications Medications Current Medications Docusate Sodium (Colace) 100 mg Q12H PRN PO CONSTIPATION Last administered on 18:38; Admin Dose 100 MG; Start 10/19/16 at 11:00 Zolpidem Tartrate (Ambien) 5 mg QHS PRN PO SLEEP Last administered on 01:11; Admin Dose 5 MG; Start 10/19/16 at 11:00 Heparin Sodium (Porcine) 5000 unit 5,000 unit Q8 SC Last administered on 21:40; Admin Dose 5,000 UNIT; Start 10/19/16 at 14:00 Sodium Chloride (1/2 NS) 1,000 ml @ 50 mls/hr Q20H IV Last administered on 21:45; Admin Dose 50 MLS/HR; Start 10/19/16 at 14:00 Levothyroxine Sodium (Synthroid) 112 mcg DAILY@06 PO Last administered on 05:35; Admin Dose 112 MCG; Start 10/20/16 at 06:00 Metoprolol Succinate (Toprol Xl) 100 mg QHS PO Last administered on 10/28/16 20:57; Admin Dose 100 MG; Start 10/19/16 at 21:00 Allopurinol (Zyloprim) 100 mg QAM PO Last administered on 10/28/16 08:47; Admin Dose 100 MG; Start 10/20/16 at 09:00 Atorvastatin Calcium (Lipitor) 80 mg QHS PO Last administered on 10/28/16 20: 57; Admin Dose 80 MG; Start 10/19/16 at 21:00 Linagliptin (Tradjenta) 5 mg DAILY PO Last administered on 10/28/16 08:48; Admin Dose 5 MG; Start 10/20/16 at 09:00 Insulin Glargine (Lantus) 6 unit DAILY@20 SC Last administered on 10/28/16 20: 56; Admin Dose 6 UNIT; Start 10/19/16 at 20:00 Diagnostic Test (Pha) (Accu-Chek) 1 ea 02 XX Last administered on 10/20/16 02: 24; Admin Dose 1 EA; Start 10/20/16 at 02:00 Miscellaneous Information 1 ea NOTE XX ; Start 10/19/16 at 15:00 Glucose (Glutose) 15 gm Q15M PRN PO DECREASED GLUCOSE; Start 10/19/16 at 15:00 Glucose (Glutose) 22.5 gm Q15M PRN PO DECREASED GLUCOSE; Start 10/19/16 at 15: 00 Dextrose (D50w Syringe) 25 ml Q15M PRN IV DECREASED GLUCOSE; Start 10/19/16 at 15:00 Dextrose (D50w Syringe) 50 ml Q15M PRN IV DECREASED GLUCOSE; Start 10/19/16 at 15:00 Glucagon (Glucagen) 1 mg Q15M PRN IM DECREASED GLUCOSE; Start 10/19/16 at 15:00 Glucose (Glutose) 15 gm Q15M PRN BUCCAL DECREASED GLUCOSE; Start 10/19/16 at 15 :00 Acetaminophen/ Hydrocodone Bitart ([place] (5/325)) 1 tab Q6H PRN PO PAIN Last administered on 10/20/16 21:45; Admin Dose 1 TAB; Start 10/19/16 at 17:30 Acetaminophen/ Hydrocodone Bitart ([place] (5/325)) 2 tab Q6H PRN PO PAIN Last administered on 10/25/16 11:00; Admin Dose 2 TAB; Start 10/19/16 at 17:30 Folic Acid (Folic Acid) 1 mg DAILY PO Last administered on 10/28/16 08:48; Admin Dose 1 MG; Start 10/20/16 at 13:30 Collagenase (Santyl) 1 applic DAILY TOP Last administered on 10/28/16 08:51; Admin Dose 1 APPLIC; Start 10/21/16 at 16:00 Collagenase (Santyl) 1 applic PRN PRN TOP WOUND CARE; Start 10/21/16 at 15:00 Pantoprazole (Protonix Tab) 40 mg BID@06,18 PO Last administered on 10/28/16 17:20; Admin Dose 40 MG; Start 10/23/16 at 18:00 Ondansetron HCl (Zofran Tab) 4 mg Q6H PRN PO NAUSEA AND/OR VOMITING Last administered on 10/23/16 16:17; Admin Dose 4 MG; Start 10/23/16 at 16:16 Magnesium Hydroxide (Milk Of Mag) 30 ml QHS PRN PO Constipation Last administered on 10/25/16 22:21; Admin Dose 30 ML; Start 10/25/16 at 22:00 Levofloxacin 250 mg 250 mg DAILY@06 PO Last administered on 10/28/16 05:35; Admin Dose 250 MG; Start 10/26/16 at 13:00 Cefepime HCl/ Sodium Chloride (Maxipime/NS) 100 ml @ 200 mls/hr Q24H IVPB Last administered on 10/28/16 13:27; Admin Dose 200 MLS/HR; Start 10/26/16 at 14:00 AMILCAR ESCOBEDO MD Oct 28, 2016 22:23
[2016-10-28] MEDS: ZOLPIDEM 5 MG TAB PO PRN (23:54)
[2016-10-29 02:00] VITALS: BP 122/72; RESP 20
[2016-10-29] MEDS: ACCU-CHEK XX SCH (02:00)
[2016-10-29 05:38] LABS: BASOPHILS % 0.4 % (0.0-2.0); EOSINOPHILS # 0.1 10^3/ul (0.0-0.5); EOSINOPHILS % 2.8 % (0.0-7.0); HEMATOCRIT 25.9 % (42.0-52.0); HEMOGLOBIN 8.2 g/dl (14.0-18.0); LYMPHOCYTES # 1.1 10^3/ul (0.8-2.9); LYMPHOCYTES % 21.5 % (15.0-51.0); MEAN CORPUSCULAR HEMOGLOBIN 34.9 pg (29.0-33.0); MEAN CORPUSCULAR HGB CONC 31.7 g/dl (32.0-37.0); MEAN CORPUSCULAR VOLUME 110.2 fl (82.0-101.0); MEAN PLATELET VOLUME 9.4 fl (7.4-10.4); MONOCYTE # 0.7 10^3/ul (0.3-0.9); MONOCYTES % 13.1 % (0.0-11.0); NEUTROPHILS % 61.2 % (39.0-77.0); PLATELET COUNT 141 10^3/UL (140-415); RED BLOOD COUNT 2.35 10^6/ul (4.70-6.10); RED CELL DISTRIBUTION WIDTH 17.8 % (11.5-14.5)
[2016-10-29] MEDS: LEVOFLOXACIN 250 MG TAB PO SCH (06:23)
[2016-10-29] MEDS: LEVOTHYROXINE 112 MCG TAB PO SCH (06:23)
[2016-10-29] MEDS: PANTOPRAZOLE (EC) 40 MG TAB PO SCH (06:23)
[2016-10-29 06:24] LABS: CALCIUM 8.5 mg/dl (8.4-10.2); CREATININE 2.2 mg/dl (0.61-1.24)
[2016-10-29] MEDS: HEPARIN 5,000 UNIT/0.5 ML VIAL SC SCH (06:24)
[2016-10-29] MEDS: INSULIN ASPART [NOVOLOG] 3 ML PEN SC SCH ×4 (07:30→12:04)
[2016-10-29 08:00] VITALS: BP 137/61; RESP 16
[2016-10-29] MEDS: LINAGLIPTIN 5 MG TABLET PO SCH (08:02)
[2016-10-29] MEDS: FOLIC ACID 1 MG TAB PO SCH (08:02)
[2016-10-29] MEDS: ALLOPURINOL 100 MG TAB PO SCH (08:02)
--- NOTE | 2016-10-29 10:36 | CONS ---
Date/Time of Note Date/Time of Note DATE: 10/29/16 TIME: 10:34 Assessment/Plan Assessment/Plan Additional Assessment/Plan Chest x-ray was reviewed from today which is showing slight increase in right pleural effusion/atelectasis. Assessment and recommendations; 1. Patient admitted with shortness of breath due to bibasilar pneumonia and possibly some element of pulmonary edema. Clinical improvement. 2. Mitral regurgitation. 3. Diabetes. 4. Hypertension. 5. Renal insufficiency. With gradually improving serum creatinine. Continue current treatment. Consultation Date/Type/Reason Admit Date/Time Oct 19, 2016 at 10:45 Initial Consult Date 10/24/16 Type of Consultation: Pulmonary Referring Provider: KASSIYD DIAMOND MD 24 HR Interval Summary Free Text/Dictation Patient condition is stable. Denies any shortness of breath, chest pain, any fever or chills. General exam; elderly male, awake alert currently in no distress. Exam/Review of Systems Vital Signs Vitals Vital Signs Date Time Temp Pulse Resp B/P Pulse Ox O2 Delivery O2 Flow Rate FiO2 10/29/16 08:00 97.7 75 16 137/61 99 Intake and Output 10/28/16 10/28/16 10/29/16 15:00 23:00 07:00 Intake Total 1740 ml 590 ml Output Total 300 ml 1300 ml Balance 1440 ml -710 ml Exam HEENT exam; supple neck, no JVD. No lymphadenopathy. Midline trachea. No thyromegaly. Chest exam; clear to auscultation. S1-S2 audible, no murmurs. Regular rhythm. Abdomen exam; soft, no organomegaly. Bowel sounds audible. Extremity exam; no peripheral edema. DIRECTOR OF ANALYTICS exam; no focal deficit. Results Result Diagram: 10/29/16 0509 10/29/16 0509 Results 24 hrs Laboratory Tests Test 10/28/16 11:34 10/28/16 17:15 10/28/16 20:54 10/29/16 05:09 Bedside Glucose 138 124 143 White Blood Count 5.0 Red Blood Count 2.35 L Hemoglobin 8.2 L Hematocrit 25.9 L Mean Corpuscular Volume 110.2 H Mean Corpuscular Hemoglobin 34.9 H Mean Corpuscular Hemoglobin Concent 31.7 L Red Cell Distribution Width 17.8 H Platelet Count 141 Mean Platelet Volume 9.4 Neutrophils % 61.2 Lymphocytes % 21.5 Monocytes % 13.1 H Eosinophils % 2.8 Basophils % 0.4 Nucleated Red Blood Cells % 0.0 Neutrophils # 3.0 Lymphocytes # 1.1 Monocytes # 0.7 Eosinophils # 0.1 Basophils # 0.0 Nucleated Red Blood Cells # 0.0 Sodium Level 139 Potassium Level 5.0 Chloride Level 106 Carbon Dioxide Level 24 Anion Gap 14 Blood Urea Nitrogen 27 H Creatinine 2.20 H Glucose Level 99 Calcium Level 8.5 Test 10/29/16 07:49 Bedside Glucose 100 Medications Medications Current Medications Docusate Sodium (Colace) 100 mg Q12H PRN PO CONSTIPATION Last administered on 18:38; Admin Dose 100 MG; Start 10/19/16 at 11:00 Zolpidem Tartrate (Ambien) 5 mg QHS PRN PO SLEEP Last administered on 23:54; Admin Dose 5 MG; Start 10/19/16 at 11:00 Heparin Sodium (Porcine) 5000 unit 5,000 unit Q8 SC Last administered on 06:24; Admin Dose 5,000 UNIT; Start 10/19/16 at 14:00 Sodium Chloride (1/2 NS) 1,000 ml @ 50 mls/hr Q20H IV Last administered on 21:45; Admin Dose 50 MLS/HR; Start 10/19/16 at 14:00 Levothyroxine Sodium (Synthroid) 112 mcg DAILY@06 PO Last administered on 06:23; Admin Dose 112 MCG; Start 10/20/16 at 06:00 Metoprolol Succinate (Toprol Xl) 100 mg QHS PO Last administered on 10/28/16 20:57; Admin Dose 100 MG; Start 10/19/16 at 21:00 Allopurinol (Zyloprim) 100 mg QAM PO Last administered on 10/29/16 08:02; Admin Dose 100 MG; Start 10/20/16 at 09:00 Atorvastatin Calcium (Lipitor) 80 mg QHS PO Last administered on 10/28/16 20: 57; Admin Dose 80 MG; Start 10/19/16 at 21:00 Linagliptin (Tradjenta) 5 mg DAILY PO Last administered on 10/29/16 08:02; Admin Dose 5 MG; Start 10/20/16 at 09:00 Insulin Glargine (Lantus) 6 unit DAILY@20 SC Last administered on 10/28/16 20: 56; Admin Dose 6 UNIT; Start 10/19/16 at 20:00 Diagnostic Test (Pha) (Accu-Chek) 1 ea 02 XX Last administered on 10/20/16 02: 24; Admin Dose 1 EA; Start 10/20/16 at 02:00 Miscellaneous Information 1 ea NOTE XX ; Start 10/19/16 at 15:00 Glucose (Glutose) 15 gm Q15M PRN PO DECREASED GLUCOSE; Start 10/19/16 at 15:00 Glucose (Glutose) 22.5 gm Q15M PRN PO DECREASED GLUCOSE; Start 10/19/16 at 15: 00 Dextrose (D50w Syringe) 25 ml Q15M PRN IV DECREASED GLUCOSE; Start 10/19/16 at 15:00 Dextrose (D50w Syringe) 50 ml Q15M PRN IV DECREASED GLUCOSE; Start 10/19/16 at 15:00 Glucagon (Glucagen) 1 mg Q15M PRN IM DECREASED GLUCOSE; Start 10/19/16 at 15:00 Glucose (Glutose) 15 gm Q15M PRN BUCCAL DECREASED GLUCOSE; Start 10/19/16 at 15 :00 Acetaminophen/ Hydrocodone Bitart ([place] (5/325)) 1 tab Q6H PRN PO PAIN Last administered on 10/20/16 21:45; Admin Dose 1 TAB; Start 10/19/16 at 17:30 Acetaminophen/ Hydrocodone Bitart ([place] (5/325)) 2 tab Q6H PRN PO PAIN Last administered on 10/25/16 11:00; Admin Dose 2 TAB; Start 10/19/16 at 17:30 Folic Acid (Folic Acid) 1 mg DAILY PO Last administered on 10/29/16 08:02; Admin Dose 1 MG; Start 10/20/16 at 13:30 Collagenase (Santyl) 1 applic DAILY TOP Last administered on 10/28/16 08:51; Admin Dose 1 APPLIC; Start 10/21/16 at 16:00 Collagenase (Santyl) 1 applic PRN PRN TOP WOUND CARE; Start 10/21/16 at 15:00 Pantoprazole (Protonix Tab) 40 mg BID@,18 PO Last administered on 10/29/16 06:23; Admin Dose 40 MG; Start 10/23/16 at 18:00 Ondansetron HCl (Zofran Tab) 4 mg Q6H PRN PO NAUSEA AND/OR VOMITING Last administered on 10/23/16 16:17; Admin Dose 4 MG; Start 10/23/16 at 16:16 Magnesium Hydroxide (Milk Of Mag) 30 ml QHS PRN PO Constipation Last administered on 10/25/16 22:21; Admin Dose 30 ML; Start 10/25/16 at 22:00 Levofloxacin 250 mg 250 mg DAILY@06 PO Last administered on 10/29/16 06:23; Admin Dose 250 MG; Start 10/26/16 at 13:00 Cefepime HCl/ Sodium Chloride (Maxipime/NS) 100 ml @ 200 mls/hr Q24H IVPB Last administered on 10/28/16 13:27; Admin Dose 200 MLS/HR; Start 10/26/16 at 14:00 JUSTIN MERINO Oct 29, 2016 10:36
[2016-10-29] MEDS: COLLAGENASE 30 GM TUBE TOP SCH (12:05)
--- NOTE | 2016-10-29 13:00 | PDOCDIS ---
Discharge Instructions DIAGNOSIS Discharge Diagnosis post rednal hemorrhage with transient renal failure, improving ashd, chf with pleural effusion and edema CONDITION Patient Condition: Fair HOME CARE INSTRUCTIONS: Diet Instructions: Reduced CalorieSpecial Diet: Renal diet FOLLOW UP/APPOINTMENTS Follow-up Plan make appt w dr partida next week check blood sugar at home twice a day no metformin for now resume all usual meds, including furosemide and tradjenta GROVER MATIAS MD Oct 29, 2016 13:00
--- NOTE | 2016-10-29 13:08 | PN ---
Date/Time of Note Date/Time of Note DATE: 10/29/16 TIME: 13:04 Assessment/Plan VTE Prophylaxis VTE Prophylaxis Intervention: ambulation (discharge today) Lines/Catheters IV Catheter Type (from Nrsg): Peripheral IV Urinary Cath still in place: No Subjective 24 Hr Interval Summary Free Text/Dictation renal capsular hemorrhage, post lithotripsy, stable, better anemia, stable chf, edema..resume oral diuretics at home diabetes hold metformin, use tradjenta for now, teach hgm before dc, call if over 200, see dr partida next week arf...stable cereat at 2.2, will follow as outpatient penile and dle edema, observe after diuretics ok for dc, will get home health resume home meds, levaquin office follow up next week Exam/Review of Systems Vital Signs Vitals Vital Signs Date Time Temp Pulse Resp B/P Pulse Ox O2 Delivery O2 Flow Rate FiO2 10/29/16 08:00 97.7 75 16 137/61 99 Intake and Output 10/28/16 10/28/16 10/29/16 15:00 23:00 07:00 Intake Total 1740 ml 590 ml Output Total 300 ml 1300 ml Balance 1440 ml -710 ml Results Result Diagram: 10/29/16 0509 10/29/16 0509 Results 24 hrs Laboratory Tests Test 10/28/16 17:15 10/28/16 20:54 10/29/16 05:09 10/29/16 07:49 Bedside Glucose 124 143 100 White Blood Count 5.0 Red Blood Count 2.35 L Hemoglobin 8.2 L Hematocrit 25.9 L Mean Corpuscular Volume 110.2 H Mean Corpuscular Hemoglobin 34.9 H Mean Corpuscular Hemoglobin Concent 31.7 L Red Cell Distribution Width 17.8 H Platelet Count 141 Mean Platelet Volume 9.4 Neutrophils % 61.2 Lymphocytes % 21.5 Monocytes % 13.1 H Eosinophils % 2.8 Basophils % 0.4 Nucleated Red Blood Cells % 0.0 Neutrophils # 3.0 Lymphocytes # 1.1 Monocytes # 0.7 Eosinophils # 0.1 Basophils # 0.0 Nucleated Red Blood Cells # 0.0 Sodium Level 139 Potassium Level 5.0 Chloride Level 106 Carbon Dioxide Level 24 Anion Gap 14 Blood Urea Nitrogen 27 H Creatinine 2.20 H Glucose Level 99 Calcium Level 8.5 Test 10/29/16 11:57 Bedside Glucose 135 Medications Medications Current Medications Docusate Sodium (Colace) 100 mg Q12H PRN PO CONSTIPATION Last administered on 18:38; Admin Dose 100 MG; Start 10/19/16 at 11:00 Zolpidem Tartrate (Ambien) 5 mg QHS PRN PO SLEEP Last administered on 23:54; Admin Dose 5 MG; Start 10/19/16 at 11:00 Heparin Sodium (Porcine) 5000 unit 5,000 unit Q8 SC Last administered on 06:24; Admin Dose 5,000 UNIT; Start 10/19/16 at 14:00 Sodium Chloride (1/2 NS) 1,000 ml @ 50 mls/hr Q20H IV Last administered on 21:45; Admin Dose 50 MLS/HR; Start 10/19/16 at 14:00 Levothyroxine Sodium (Synthroid) 112 mcg DAILY@06 PO Last administered on 06:23; Admin Dose 112 MCG; Start 10/20/16 at 06:00 Metoprolol Succinate (Toprol Xl) 100 mg QHS PO Last administered on 10/28/16 20:57; Admin Dose 100 MG; Start 10/19/16 at 21:00 Allopurinol (Zyloprim) 100 mg QAM PO Last administered on 10/29/16 08:02; Admin Dose 100 MG; Start 10/20/16 at 09:00 Atorvastatin Calcium (Lipitor) 80 mg QHS PO Last administered on 10/28/16 20: 57; Admin Dose 80 MG; Start 10/19/16 at 21:00 Linagliptin (Tradjenta) 5 mg DAILY PO Last administered on 10/29/16 08:02; Admin Dose 5 MG; Start 10/20/16 at 09:00 Insulin Glargine (Lantus) 6 unit DAILY@20 SC Last administered on 10/28/16 20: 56; Admin Dose 6 UNIT; Start 10/19/16 at 20:00 Diagnostic Test (Pha) (Accu-Chek) 1 ea 02 XX Last administered on 10/20/16 02: 24; Admin Dose 1 EA; Start 10/20/16 at 02:00 Miscellaneous Information 1 ea NOTE XX ; Start 10/19/16 at 15:00 Glucose (Glutose) 15 gm Q15M PRN PO DECREASED GLUCOSE; Start 10/19/16 at 15:00 Glucose (Glutose) 22.5 gm Q15M PRN PO DECREASED GLUCOSE; Start 10/19/16 at 15: 00 Dextrose (D50w Syringe) 25 ml Q15M PRN IV DECREASED GLUCOSE; Start 10/19/16 at 15:00 Dextrose (D50w Syringe) 50 ml Q15M PRN IV DECREASED GLUCOSE; Start 10/19/16 at 15:00 Glucagon (Glucagen) 1 mg Q15M PRN IM DECREASED GLUCOSE; Start 10/19/16 at 15:00 Glucose (Glutose) 15 gm Q15M PRN BUCCAL DECREASED GLUCOSE; Start 10/19/16 at 15 :00 Acetaminophen/ Hydrocodone Bitart ([place] (5/325)) 1 tab Q6H PRN PO PAIN Last administered on 10/20/16 21:45; Admin Dose 1 TAB; Start 10/19/16 at 17:30 Acetaminophen/ Hydrocodone Bitart ([place] (5/325)) 2 tab Q6H PRN PO PAIN Last administered on 10/25/16 11:00; Admin Dose 2 TAB; Start 10/19/16 at 17:30 Folic Acid (Folic Acid) 1 mg DAILY PO Last administered on 10/29/16 08:02; Admin Dose 1 MG; Start 10/20/16 at 13:30 Collagenase (Santyl) 1 applic DAILY TOP Last administered on 10/29/16 12:05; Admin Dose 1 APPLIC; Start 10/21/16 at 16:00 Collagenase (Santyl) 1 applic PRN PRN TOP WOUND CARE; Start 10/21/16 at 15:00 Pantoprazole (Protonix Tab) 40 mg BID@,18 PO Last administered on 10/29/16 06:23; Admin Dose 40 MG; Start 10/23/16 at 18:00 Ondansetron HCl (Zofran Tab) 4 mg Q6H PRN PO NAUSEA AND/OR VOMITING Last administered on 10/23/16 16:17; Admin Dose 4 MG; Start 10/23/16 at 16:16 Magnesium Hydroxide (Milk Of Mag) 30 ml QHS PRN PO Constipation Last administered on 7/22/17at 22:21; Admin Dose 30 ML; Start 10/25/16 at 22:00 Levofloxacin 250 mg 250 mg DAILY@06 PO Last administered on 10/29/16 06:23; Admin Dose 250 MG; Start 10/26/16 at 13:00 Cefepime HCl/ Sodium Chloride (Maxipime/NS) 100 ml @ 200 mls/hr Q24H IVPB Last administered on 10/28/16 13:27; Admin Dose 200 MLS/HR; Start 10/26/16 at 14:00 GROVER MATIAS MD Oct 29, 2016 13:08
--- NOTE | 2016-10-29 17:07 | PN ---
Date/Time of Note Date/Time of Note DATE: 10/29/16 TIME: 16:58 Assessment/Plan VTE Prophylaxis VTE Prophylaxis Intervention: ambulation VTE Contraindication Reason: bleeding (will ok baby asa after dc) Lines/Catheters IV Catheter Type (from Nrsg): Peripheral IV Urinary Cath still in place: No Subjective 24 Hr Interval Summary Free Text/Dictation a.r.f. with background ckd, last outpt stable creat 1.7.range 1.4-1.7, last several here about 2.2 le edema, stable to resume diuretics as outpt renal capsular hemorrhage, stable spoke with dr pena, no further need for antibiotics diabetes will teach hgm, but hold off on insulin for now, stay on tradjenta and hold metformin anemia, to follow alert, lungs clear, [place] thoracentesis, cxr about same or some new effusion abd soft gu w genital edema also thigh edema, legs wrapped no ankle edema PLAN dc home stay off eliquis for now, ok asa resume all home dmeds, lasix bid, tradjenta follow up with dr partida next week, call us if bs grtr than 200, or any other problems home health will resume care Exam/Review of Systems Vital Signs Vitals Vital Signs Date Time Temp Pulse Resp B/P Pulse Ox O2 Delivery O2 Flow Rate FiO2 10/29/16 14:32 Nasal Cannula 10/29/16 08:00 97.7 75 16 137/61 99 Intake and Output 10/28/16 10/28/16 10/29/16 15:00 23:00 07:00 Intake Total 1740 ml 590 ml Output Total 300 ml 1300 ml Balance 1440 ml -710 ml Results Result Diagram: 10/29/16 0509 10/29/16 0509 Results 24 hrs Laboratory Tests Test 10/28/16 17:15 10/28/16 20:54 10/29/16 05:09 10/29/16 07:49 Bedside Glucose 124 143 100 White Blood Count 5.0 Red Blood Count 2.35 L Hemoglobin 8.2 L Hematocrit 25.9 L Mean Corpuscular Volume 110.2 H Mean Corpuscular Hemoglobin 34.9 H Mean Corpuscular Hemoglobin Concent 31.7 L Red Cell Distribution Width 17.8 H Platelet Count 141 Mean Platelet Volume 9.4 Neutrophils % 61.2 Lymphocytes % 21.5 Monocytes % 13.1 H Eosinophils % 2.8 Basophils % 0.4 Nucleated Red Blood Cells % 0.0 Neutrophils # 3.0 Lymphocytes # 1.1 Monocytes # 0.7 Eosinophils # 0.1 Basophils # 0.0 Nucleated Red Blood Cells # 0.0 Sodium Level 139 Potassium Level 5.0 Chloride Level 106 Carbon Dioxide Level 24 Anion Gap 14 Blood Urea Nitrogen 27 H Creatinine 2.20 H Glucose Level 99 Calcium Level 8.5 Test 10/29/16 11:57 Bedside Glucose 135 Medications Medications Current Medications Docusate Sodium (Colace) 100 mg Q12H PRN PO CONSTIPATION Last administered on 18:38; Admin Dose 100 MG; Start 10/19/16 at 11:00 Levothyroxine Sodium (Synthroid) 112 mcg DAILY@06 PO Last administered on 06:23; Admin Dose 112 MCG; Start 10/20/16 at 06:00 Metoprolol Succinate (Toprol Xl) 100 mg QHS PO Last administered on 10/28/16 20:57; Admin Dose 100 MG; Start 10/19/16 at 21:00 Allopurinol (Zyloprim) 100 mg QAM PO Last administered on 10/29/16 08:02; Admin Dose 100 MG; Start 10/20/16 at 09:00 Atorvastatin Calcium (Lipitor) 80 mg QHS PO Last administered on 10/28/16 20: 57; Admin Dose 80 MG; Start 10/19/16 at 21:00 Linagliptin (Tradjenta) 5 mg DAILY PO Last administered on 10/29/16 08:02; Admin Dose 5 MG; Start 10/20/16 at 09:00 Diagnostic Test (Pha) (Accu-Chek) 1 ea 02 XX Last administered on 10/20/16 02: 24; Admin Dose 1 EA; Start 10/20/16 at 02:00 Folic Acid (Folic Acid) 1 mg DAILY PO Last administered on 10/29/16 08:02; Admin Dose 1 MG; Start 10/20/16 at 13:30 Collagenase (Santyl) 1 applic DAILY TOP Last administered on 10/29/16 12:05; Admin Dose 1 APPLIC; Start 10/21/16 at 16:00 Collagenase (Santyl) 1 applic PRN PRN TOP WOUND CARE; Start 10/21/16 at 15:00 Pantoprazole (Protonix Tab) 40 mg BID@06,18 PO Last administered on 10/29/16 06:23; Admin Dose 40 MG; Start 10/23/16 at 18:00 Magnesium Hydroxide (Milk Of Mag) 30 ml QHS PRN PO Constipation Last administered on 10/25/16 22:21; Admin Dose 30 ML; Start 10/25/16 at 22:00 Levofloxacin (Levaquin) 250 mg DAILY@06 PO Last administered on 10/29/16 06:23 ; Admin Dose 250 MG; Start 10/26/16 at 13:00 GROVER MATIAS MD Oct 29, 2016 17:07
--- NOTE | 2016-10-30 12:22 | DS ---
DATE OF ADMISSION: 10/19/2016 DATE OF DISCHARGE: 10/29/2016 CHIEF COMPLAINT: Acute renal failure. FINAL DIAGNOSES: 1. Acute renal failure following lithotripsy performed in August of this year. Patient developed some shortness of breath and was found to have a small pleural effusion. Also, acute onset of elevated creatinine, as high as 4, but on admission was less so. On admission his creatinine was 3.64, BUN of 57, potassium of 5, elevated BNP of 5800, hemoglobin of 8.2, normal white count, relatively normal platelet count. Patient's usual creatinine is about 2.1-2.2. Patient was admitted, seen by renal, treated basically conservatively, and was nonoliguric. His creatinine has leveled off in the 2.2-2.3 range within a couple of days and has remained there. Today's creatinine is 2.3 with a BUN of 27. Potassium is 5. He will be followed up with Dr Carpio next week with a repeat creatinine. 2. Chronic coronary artery disease. History of prior right coronary artery occlusion, acutely treated with antithrombolytic agents; this was many years ago. He has been stable since then. He does have, by echocardiogram, no significant loss of his left ventricular function. He has hyperlipidemia, for which he takes atorvastatin. 3. Hypertension, currently being treated appropriately. 4. Atrial fibrillation. He was on Eliquis prior to admission; that has been discontinued. 5. Hyperuricemia, on allopurinol without gout currently. 6. Hyperlipidemia, as noted above. 7. Onset of findings consistent with pulmonary congestion with a pleural effusion. Thoracentesis was performed with pulmonary consult. The fluid is consistent with a transudate. No infection is apparent. 8. Chronic lower extremity edema and venous changes with skin ulceration, under treatment by nursing and, prior to that, by home health. 9. Renal hematoma. He has been seen by Dr . We are assuming that that will resolve without difficulty, and his creatinine should also continue to remain at baseline. He was briefly on antibiotics; those have been discontinued. He has edema of the thighs and of the genitals, which will continue to be under observation. DISPOSITION: The patient is discharged home. He has home health which will be continued. HOME MEDICATIONS: 1. Tradjenta 5 mg daily. 2. Metformin, discontinued for now. He has been taught how to do home glucose monitoring, which he will do twice a day. If it is over 200, he will call. He will not be given insulin instructions at this point and that again will be followed up by Dr Carpio next week. 3. Baby aspirin for now, without Eliquis. Timing of the return to Eliquis will be dependent on his clinical condition. 4. Atorvastatin. 5. Lasix 40 mg b.i.d. 6. Levothyroxin usual dose, 0.112 mg. DISCHARGE CONDITION: At the time of discharge the patient is ambulatory and alert and anxious to go home. FOLLOWUP: As noted, follow up in [address] Carpio. Dictated By: Kan Stroud MD /brice/david /Document#: [id number]
--- NOTE | 2016-10-31 04:04 | CONS ---
DATE OF ADMISSION: 10/19/2016 DATE OF CONSULTATION: 10/20/2016 RHEUMATOLOGY CONSULTATION: REASON FOR CONSULTATION: Joint pain. HISTORY OF PRESENT ILLNESS: Patient is a 76-year-old male who was recently seen by me as an outpatient for chronic low back pain and right shoulder pain on and off. He also has a history of coronary artery disease, diabetes, hyperlipidemia, hypertension, hypothyroid, chronic mild renal insufficiency, renal stones, atrial fib, and he was admitted to the hospital on 10/19 for aybpe-id-[id number] renal failure. When he was seen in my office on October 08, we shobha blood and his creatinine at that time was found to be very elevated at 4.59 with a BUN of 59. This is unusual for the patient and I contacted his primary care physician and he was subsequently admitted after several episodes of testing. He had some lower extremity edema, and some ulcerations and weeping and blistering and bleeding from the severity of the lower extremity edema. Of note, he recently had a lithotripsy of a kidney stone and since his admission, he had a CT of his abdomen that showed a right subscapular hematoma that they are thinking may be the cause of the renal insufficiency. Nephrology is, of course, following as is Urology. Currently, patient denies any pain. He says that he gets occasional right shoulder pain on and off since he has been in bed but currently denies any severe pain, any low back pain, any fevers, chills, nausea or vomiting, chest pain, shortness of breath, any other rashes other than the lower extremity ulcerations as described above. PAST MEDICAL HISTORY: As stated above. Angina, coronary artery disease, diabetes, hyperlipidemia, hypertension, hypothyroid, renal disease, hyperuricemia, atrial fibrillation. PAST SURGICAL HISTORY: Appendectomy, bilateral inguinal hernia repair, bilateral extracorporeal shock wave lithotripsy, tonsillectomy, some skin cancer local removals. FAMILY HISTORY: Some heart disease, diabetes, hypertension. SOCIAL HISTORY: No alcohol use. Never smoked. No drug use. Lives at home independently. MEDICATION: Currently include allopurinol 100 mg a day, Tradjenta, Synthroid, Toprol, Lipitor, Lantus, [place] p.r.n. PHYSICAL EXAMINATION: GENERAL APPEARANCE: Alert and oriented, no acute distress, pleasant male. HEENT: NCAT. Extraocular movements intact. Pupils equal round, reactive to light. Oropharynx clear. ENT: No masses. NECK: Range of motion intact. LUNGS: Some slight crackles and rales at the bilateral bases CARDIAC: Irregularly irregular rhythm. Normal pulses. ABDOMEN: Soft, nontender, nondistended. MUSCULOSKELETAL: There is lower extremity venous stasis changes from report; however, both his legs are bandaged. There is some weeping of serosanguineous fluid through the bandages. NEUROLOGIC: Cranial nerves 2-12 intact. Normal mental status. Normal speech. LABORATORY: Include the following. Sodium 141, potassium 4.5, chloride 107, bicarb 23, BUN 53, creatinine 3.57, glucose 93, calcium 8.4. TSH 3.69. Uric acid is 9.5. AST is 50, ALT 44, total bili 0.5, direct bili 0, indirect bili 0.5, alk phos 97. Hematology: WBC 6.7, hemoglobin 7.1, hematocrit 23.0, platelet count 145. ESR is 63. Urinalysis shows leukocyte esterase negative, nitrite negative, glucose negative, many microscopic RBCs, a few WBCs. Abdominal CT shows a stable right subscapular hematoma and an unchanged [id number], right greater than left pleural effusions. A renal ultrasound shows hypoechoic subscapular right renal fluid collection, probably compatible with a subscapular hematoma. This measures 4 cm in greatest thickness and 6 cm in craniocaudal extent, multiple Nonobstructing nephrolithiasis without hydronephrosis or obstructive uropathy, bilateral renal cortical cysts. ASSESSMENT AND PLAN: This is a 76-year-old male with several medical problems, who is now here for [id number] renal insufficiency or renal failure. His normal creatinine is between 1.3 and 1.7 and now he went as high as 4.6, slowly going down. We did do a workup for autoimmune disease in the office and he does have a low-positive CALLUM, although I do not think that this has anything to do with his renal insufficiency, as this is somewhat sudden. It probably likely has to do with the lithotripsy and his hematoma. Currently, patient appears to be pain free and as such we will just follow him in case he develops any pain and requires any injections or other pain medication. I would like to thank Dr. Carpio for having me participate in this patient's care. Please do not hesitate to call with any further questions or concerns. Dictated By: Brett Abraham MD /brice/felecia /Document#: [id number]
== END 2016-10-29 17:12 | disposition home health service (06) | DRG 919 ==
LOC: E/R 07:48 → PP2 10:45
PROVIDERS: ADMIT Internal Medicine; ATTEND Internal Medicine
PROC: 0W993ZZ Drainage of Right Pleural Cavity, Percutaneous Approach (ICD-10-PCS; principal; 2016-10-27)
DX: K91.870 Postprocedural hematoma of a digestive system organ or structure following a digestive system procedure (principal); N17.0 Acute kidney failure with tubular necrosis; J96.91 Respiratory failure, unspecified with hypoxia; K66.1 Hemoperitoneum; J18.9 Pneumonia, unspecified organism; I11.0 Hypertensive heart disease with heart failure; L03.115 Cellulitis of right lower limb; I50.30 Unspecified diastolic (congestive) heart failure; I83.218 Varicose veins of right lower extremity with both ulcer of other part of lower extremity and inflammation; L03.116 Cellulitis of left lower limb; I83.228 Varicose veins of left lower extremity with both ulcer of other part of lower extremity and inflammation; L97.829 Non-pressure chronic ulcer of other part of left lower leg with unspecified severity; L97.819 Non-pressure chronic ulcer of other part of right lower leg with unspecified severity; E11.9 Type 2 diabetes mellitus without complications; I12.9 Hypertensive chronic kidney disease with stage 1 through stage 4 chronic kidney disease, or unspecified chronic kidney disease; D64.9 Anemia, unspecified; Z79.02 Long term (current) use of antithrombotics/antiplatelets; I25.10 Atherosclerotic heart disease of native coronary artery without angina pectoris; E78.00 Pure hypercholesterolemia, unspecified; N18.2 Chronic kidney disease, stage 2 (mild); E03.9 Hypothyroidism, unspecified; I70.248 Atherosclerosis of native arteries of left leg with ulceration of other part of lower leg; I70.238 Atherosclerosis of native arteries of right leg with ulceration of other part of lower leg; N50.89 Other specified disorders of the male genital organs; I48.91 Unspecified atrial fibrillation; Z87.891 Personal history of nicotine dependence; I25.2 Old myocardial infarction; E79.0 Hyperuricemia without signs of inflammatory arthritis and tophaceous disease
CPT/HCPCS: 36415; 71010; 74150; 74176; 76775; 76942; 80048; 80053; 81001; 81003; 82330; 82550; 82553; 82570; 82728; 82945; 82962; 83540; 83605; 83690; 83735; 83880; 84100; 84155; 84156; 84157; 84165; 84166; 84300; 84443; 84484; 84560; 85025; 85610; 85651; 85730; 86140; 86160; 86850; 86900; 86901; 87040; 87070; 87102; 87116; 88104; 88305; 89051; 89190; 93005; 93306; 93922; 96372; 96374; 96375; 97110; 97116; 97161; 97530; J0690; J0692; J0885; J1644; J1815; J2543; J2916; J3370; J3420; J7120; Q4081

== ENCOUNTER → 2017-02-25 | Outpatient (CLI) | payer MEDICARE, OTHER ==
--- NOTE | 2017-02-25 12:50 | RADRPT ---
PROCEDURE: XR Chest. CLINICAL INDICATION: Chest pain, pleural effusion TECHNIQUE: Single frontal view of the chest was obtained COMPARISON: 10/28/2016 FINDINGS: Atherosclerotic changes are seen in the aortic arch. The cardiac silhouette is unremarkable. The lungs are clear. There is a very mild blunting of the right costophrenic angle which could represent a very small rig ht pleural effusion. The left pleural space is clear. The bones and soft tissue show no acute change. IMPRESSION: 1. Very mild blunting of the right costophrenic angle which could represent a very small right pleu ral effusion. 2. Otherwise, no significant abnormalities are identified. RPTAT:AAJJ Physician Lacho Date Time Electronically viewed and signed by Thomas Abdi Physician on 02/25/2017 12:49 /
== END | disposition home or self-care (01) ==
LOC: RAD 11:50
PROVIDERS: ATTEND Internal Medicine Pulmonary Disease
DX: J90 Pleural effusion, not elsewhere classified (principal)
CPT/HCPCS: 71010

== ENCOUNTER 2017-05-12 18:06 | Inpatient (IN) | END 2017-05-15 18:05 | disposition home or self-care (01) | DRG 394 ==

== ENCOUNTER 2017-06-04 18:27 | Inpatient (IN) | END 2017-06-09 16:00 | disposition home or self-care (01) | DRG 983 ==